=== PATIENT | female | born 1995 | race Caucasian/White ===

== ENCOUNTER 2019-02-11 14:41 | Outpatient (REF) | payer BC, SELFPAY ==
[2019-02-11 15:42] LABS: TSH (W/Ref FT4) 2.58 uIU/mL (0.358-3.74)
== END 2019-02-11 15:01 ==
LOC: NCHCN 14:41
PROVIDERS: Visit Provider Nurse Practitioner Family
DX: F41.0 Panic disorder [episodic paroxysmal anxiety] (principal); F41.8 Other specified anxiety disorders
CPT/HCPCS: 84443

== ENCOUNTER 2019-09-29 03:46 | Emergency (ER) | payer SELFPAY ==
[2019-09-29 03:52] VITALS: BP 117/82; PULSE 95; RESP 16; TEMP 36.7; O2SAT 97
--- NOTE | 2019-09-29 04:03 | ED.GENADUL_ITS ---
Discharge Plan Disposition Patient Disposition: HOME Condition: Good Discharge Details Chief Complaint: Abd Prob Clinical Impression: Abdominal pain Primary Care Provider: Joyce Wright ED Provider: Daryl Cameron Meds and New Rx's Prescriptions: Continued Control Pill RF: 0 Discharge Instructions Instructions: Abdominal Pain (ED) Additional Instructions: Laboratory studies this morning look fine. Take it easy today, drink plenty of fluids and stick with a bland diet. Follow-up with primary care in the next couple of days if not better. Return to ED if worsening pain, vomiting, fever, other concerns or problems. Referrals: Joyce Wright [Primary Care Provider] - Medical Decision Making Patient looks well. Reports pain is a little better on its own. Abdomen is benign. Records do confirm episodes of pancreatitis. Will place IV and start fluids. Will get Zofran and Toradol while we wait for labs to return. Patient is feeling better. Pain is essentially gone. Laboratory studies are unremarkable. White count, hemoglobin, liver function, lipase are all normal. Patient is not . Patient will be discharged home to take it easy today with liquid/bland diet. Follow-up with primary care in the next couple of days if not feeling better. Return to ED if worsening pain, vomiting, fever, other concerns or problems. Medical Records Medical records reviewed: Yes I reviewed the patient's medical records. Lab Data Lab results reviewed: Yes I reviewed the patient's lab results. HPI General Mode of arrival: ambulatory . Date/Time Provider Initiated Documentation: 09/29/19 04:00 . Limitations to Documentation: no limitations . Information obtained by: patient, RN notes reviewed and old records reviewed . HPI Narrative: Patient presents to ED with complaint of upper abdominal pain radiating to the back. One episode of bilious emesis. Patient reports previous episodes of pancreatitis. Reports this feels similar. Previous work-ups have been negative for an etiology of these episodes. Imaging has been negative in the past. Reports not having dinner tonight as she was not hungry but did not really think much of that that as it occurs often. Went to bed without issue but awoke around midnight with pain and has presented this morning due to the pain. She denies fever, chest pain, shortness of breath, urinary symptoms. She is on her menstrual period at this time. Related Data Home Medications Medication Instructions Recorded Confirmed Control Pill 09/29/19 Allergies Allergy/AdvReac Type Severity Reaction Status Date / Time No Known Allergies Allergy Unverified 09/29/19 04:08 General Stated Complaint: Abd Prob CLAUDIA: 3 Review of Systems Narrative: 08/31 Review of Systems completed and is negative except as stated above in HPI (Systems reviewed: Const, Eyes, ENT, Resp, CV, GI, , MSK, Skin, Neuro) [facility] Medical History (Updated 09/29/19 @ 04:14 by Daryl Cameron MD) Pancreatitis (Acute) Social History Smoking/Tobacco Use Status: Never Alcohol Intake: current Alcohol Intake frequency: a few times a month Drug use: Never Substance use type: does not use Do you feel safe at home: Yes Do you feel safe in your relationship?: Yes Exam Narrative Exam Narrative: Vitals: Afebrile. Normal vitals and room air pulse ox. Const: WDWN female in NAD. HEENT: NC/AT. Normal facial exam. Eyes: Normal conjunctiva and sclera. Neck: Supple. Trachea midline. Lungs: Normal respiratory effort. Lungs are clear. Cor: RRR without murmur/gallop. Good radial pulses. GI: Soft. NT/ND. No guarding or rebound. Back: No CVAT. Neuro: A+O x 3. CN grossly in tact. Good strength and no focal deficit. Ext: No C/C/E. No deformity or tenderness. Skin: Warm and dry without rash. Course Vital Signs Vital signs: Vital Signs Temperature 98.1 F 09/29/19 03:52 Pulse 95 H 09/29/19 03:52 Respiratory Rate 16 09/29/19 03:52 Blood Pressure 117/82 09/29/19 03:52 Pulse Oximetry 97 09/29/19 03:52 Temperature 98.1 F 09/29/19 03:52 Temperature Source Tympanic 09/29/19 03:52 Pulse 95 H 09/29/19 03:52 Respiratory Rate 16 09/29/19 03:52 Respiratory Effort Non-Labored 09/29/19 03:56 Blood Pressure 117/82 09/29/19 03:52 Blood Pressure Position Sitting 09/29/19 03:52 Pulse Oximetry 97 09/29/19 03:52 Oxygen Delivery Method Room Air 09/29/19 03:52 Oxygen Flow Rate 0 09/29/19 03:52 Pain Level 4 09/29/19 03:52
[2019-09-29 04:42] LABS: Abs Immature Grans 0.01 k/cumm (0.0-0.09); Absolute Basophil Count 0.05 k/cumm (0.0-0.2); Absolute Eosinophil Count 0.11 k/cumm (0.0-0.7); Absolute Lymphocyte Count 1.94 k/cumm (1.2-3.4); Absolute Monocyte Count 1.19 k/cumm (0.11-0.7); Absolute Neutrophil Count 5.21 k/cumm (1.2-6.7); Basophils % 0.6; Eosinophils % 1.3; HCT 38.7 % (36.0-46.0); HGB 12.7 g/dL (12.0-15.5); Immature Grans % 0.1; Lymphocytes % 22.8; Mean Corp. HGB Concentration 32.8 g/dL (32.0-36.0); Mean Corpuscular Hemoglobin 29.6 pg (27.0-33.0); Mean Corpuscular Volume 90.2 fL (80-95); Mean Platelet Volume 10.5 fL (8.0-11.0); Neutrophils % 61.2; Platelet Count 328 x1000/uL (130-400); RBC 4.29 m/cumm (4.00-5.20); RBC Distribution Width 13.6 % (11.7-14.6); White Blood Cell Count 8.51 k/cumm (4.4-10.8)
[2019-09-29] MEDS: Lactated Ringers 1,000 ML 125 ML IV (04:43)
[2019-09-29] MEDS: Ondansetron 4 MG/2 ML VIAL IVP (04:43)
[2019-09-29] MEDS: Ketorolac 15 MG/ML VIAL IVP (04:43)
[2019-09-29 05:01] LABS: ALT 20 U/L (14-59); AST 12 U/L (15-37); Albumin 3.4 g/dL (3.4-5.0); Alkaline Phosphatase 65 U/L (46-116); Anion Gap 11.1 mmol/L (3-11); BUN 13 mg/dL (7-18); Bilirubin, Total 0.3 mg/dL (0.2-1.0); CO2 23.9 mmol/L (21.0-32.0); CREATININE 0.78 mg/dL (0.55-1.02); Calcium 8.6 mg/dL (8.5-10.1); Chloride 108 mmol/L (98-107); Glucose 98 mg/dL (70-100); Lipase 89 U/L (73-393); Potassium 3.5 mmol/L (3.5-5.1); Sodium 143 mmol/L (136-145); Total Protein 6.9 g/dL (6.4-8.2)
[2019-09-29 05:04] LABS: HCG Qual (Serum) Negative
[2019-09-29 05:33] VITALS: BP 123/72; PULSE 82; RESP 16; TEMP 36.7; O2SAT 99
== END 2019-09-29 05:30 | disposition home or self-care (01) ==
PROVIDERS: Emergency Provider Emergency Medicine; PCP Nurse Practitioner Family
DX: R10.10 Upper abdominal pain, unspecified (principal); R11.10 Vomiting, unspecified
CPT/HCPCS: 36415; 80053; 83690; 96361; 96374; 96375; 99284; 84703; 85025; J1885; J2405

== ENCOUNTER 2019-12-09 16:32 | Outpatient (REF) | payer OTHER, SELFPAY ==
--- NOTE | 2019-12-09 11:45 | PAPFT_PTH ---
PATIENT: Blanka Lee LOC: [facility] U#:[id number] AGE/SX: 24/F ROOM: RE12/09/[address]: Joyce Wright : 1995 BED: DIS: 12/09/2019 SPEC #: [id number] RECD: 12/10/19 13:03 STATUS: TIERNEY RECandace #: [id number] ELAINE: 12/09/19 11:[address]: Joyce Wright DEPT: [facility] Cytology RECD BY: Jaymie Roberts Tissues: 1 - CX/ENDOCX FOR PAP SMEARS Procedures: PAP THIN PREP/UVM Screening Comments: [id number] (CHLAMYDIA/GC)
[2019-12-11 13:40] LABS: Chlamydia Result Negative (Negative); GC Result Negative (Negative)
== END 2019-12-09 16:52 ==
LOC: NCHCN 16:32
PROVIDERS: PCP Nurse Practitioner Family; Visit Provider Nurse Practitioner Family
DX: Z00.00 Encounter for general adult medical examination without abnormal findings (principal); Z12.4 Encounter for screening for malignant neoplasm of cervix; Z01.419 Encounter for gynecological examination (general) (routine) without abnormal findings; Z11.3 Encounter for screening for infections with a predominantly sexual mode of transmission
CPT/HCPCS: 87491; 87591; 88142

== ENCOUNTER 2019-12-13 00:34 | Emergency (ER) | payer OTHER, SELFPAY ==
[2019-12-13 00:36] VITALS: BP 129/75; PULSE 81; RESP 16; TEMP 36.8; O2SAT 100
--- NOTE | 2019-12-13 00:41 | ED.GENADUL_ITS ---
Discharge Plan Disposition Patient Disposition: HOME Condition: Stable Discharge Details Chief Complaint: Abd Prob Clinical Impression: Mass of pancreas Primary Care Provider: Joyce Wright ED Provider: Marquis Jensen Home Meds and New Rx's Prescriptions: New oxycodone 5 mg tablet 5 mg PO Q6H PRN (Reason: pain) Qty: 10 RF: 0 ondansetron 4 mg tablet,disintegrating 4 mg PO Q8H PRN (Reason: nausea and vomiting) Qty: 30 RF: 0 Continued Control Pill RF: 0 Discharge Instructions Additional Instructions: Your cat scan showed a mass near the pancreas which could be a tumor or a pseudocyst follow up with your primary care provider and I have also placed you on our foll ow up list to see a congressional representative and general surgeron if you have severe worsening pain, persistent vomit or high fevers return to the emergency department if you have pain take 1000mg tylenol and 600mg ibuprofen every 6 hours for pain as needed if you need additional pain medication take 1 oxycodone and do not drink alcohol or drive if you take this medicine Medical Decision Making 24 yo female who states she has 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 Denies fevers, chills, chest pain, sob, vaginal bleeding or d/c. She appears in pain on exam and has pain in luq, epigastric and ruq on exam, no distention and no lower abdominal pain. Given degree of pain and her history will obtain ct to eval for surgical pathology such as cholecystitis or pneumoperitoneum and also lab work to evaluate for acute pancreatitis. labs benign, mild elevation of ast barely outside normal range. She is currently feeling better. CT is showing 3.8cm mass near pancreatic head with differential per radiology of solid pseudo papillary tumor, pseudocyst or duodenal diverticulitis. She has no fevers or infectious symptoms and no leukocytosis so doubt infectious etiology. I recommended admission and possible transfer but she is declining and wants to be discharged. She understands risks of leaving including worsening mass and possible outcomes such as becoming disabled and possible and is willing to accept these risks and has capacity to make her own decisions. I will prescribe her short course of pain meds and nausea medicine and have her f/u with gastroenterology and also general surgery to see if there is any procedure that they can do for the patient. She understands if she changes her mind she can return at any time Differential Diagnosis Differential Diagnosis: cholecystitis, pancreatitis, gerd [facility] General Mode of arrival: ambulatory . Date/Time Provider Initiated Documentation: 12/13/19 00:35 . Limitations to Documentation: no limitations . Information obtained by: patient . History of Present Illness 24 year old F presents to the emergency department with the chief complaint of abdominal pain, described as moderate, Quality is described as sharp, Patient started experiencing this week(s) (2) and it has been intermittent. No relieving factors improve symptom(s), No exacerbating factors reported . Patient notes nausea/vomiting. Patient did receive the following treatments prior to arrival, none Related Data Home Medications Medication Instructions Recorded Confirmed Control Pill 09/29/19 ondansetron 4 mg PO Q8H PRN #30 tab 12/13/19 oxycodone 5 mg PO Q6H PRN #10 tab 12/13/19 Previous Rx's Medication Instructions Recorded ondansetron 4 mg PO Q8H PRN #30 tab 12/13/19 oxycodone 5 mg PO Q6H PRN #10 tab 12/13/19 Allergies Allergy/AdvReac Type Severity Reaction Status Date / Time No Known Allergies Allergy Unverified 09/29/19 04:08 General Stated Complaint: Abd Prob CLAUDIA: 3 Review of Systems All systems reviewed & are unremarkable except as noted in HPI and below Constitutional Constitutional: Denies chills, Denies fever(s) and Denies weakness Cardiovascular Cardiovascular: Denies chest pain and Denies dyspnea Respiratory Respiratory: Denies cough and Denies dyspnea Genitourinary Genitourinary: Denies dysuria Musculoskeletal Musculoskeletal: Denies joint swelling Integumentary/Breasts Skin/Breast: Denies rash Neurologic Neurologic: Denies weakness Psychiatric Psychiatric: Denies depression Endocrine Endocrine: Denies cold intolerance [facility] Medical History (Updated 09/29/19 @ 04:14 by Daryl Cameron MD) Pancreatitis (Acute) Social History Smoking/Tobacco Use Status: Never Alcohol Intake: current Alcohol Intake frequency: a few times a month Drug use: Never Substance use type: does not use Do you feel safe at home: Yes Do you feel safe in your relationship?: Yes Exam Const General: no acute distress Orientation: alert HENMT Head: normal to inspection Ears: external ears normal General nose exam: external nose normal Mouth: moist mucous membranes Eyes General: appearance normal, both eyes and all related structures Neck Neck: normal visual inspection Resp Effort & Inspection: normal respiratory effort and able to speak in complete sentences Cardio Rate: regular rate GI Inspection: normal to inspection Palpation: soft Skin General skin exam: no rashes or lesions noted Neuro General: alert and oriented x3 Extrem General: normal to inspection Psych Mental Status: mental status grossly normal Course Vital Signs Vital signs: Vital Signs Temperature 36.8 C 12/13/19 00:36 Pulse 81 12/13/19 00:36 Respiratory Rate 16 12/13/19 00:36 Blood Pressure 129/75 12/13/19 00:36 Pulse Oximetry 100 12/13/19 00:36 Temperature 36.8 C 12/13/19 00:36 Temperature Source Skin 12/13/19 00:36 Pulse 81 12/13/19 00:36 Respiratory Rate 16 12/13/19 00:36 Blood Pressure 129/75 12/13/19 00:36 Blood Pressure Position Sitting 12/13/19 00:36 Pulse Oximetry 100 12/13/19 00:36 Oxygen Delivery Method Room Air 12/13/19 00:36 Oxygen Flow Rate 0 12/13/19 00:36
[2019-12-13] MEDS: Ondansetron 4 MG/2 ML VIAL IVP (00:56)
[2019-12-13] MEDS: Ketorolac 15 MG/ML VIAL IVP (00:57)
[2019-12-13] MEDS: Normal Saline Flush 10 ML SYR IVP (00:57)
[2019-12-13] MEDS: Normal Saline 1,000 ML 1000 ML IV (00:57)
--- NOTE | 2019-12-13 01:00 | DI.CT_ITS ---
EXAM: CT ABDOMEN PELVIS W CLINICAL HISTORY: upper abdominal pain TECHNIQUE: Post IV and without oral contrast. COMPARISON: ABD PELVIS WITH CONTRAST from 02/11/2010 MRI ABDOMEN WO CONTRAST from 03/09/2010 FINDINGS: There is a circumscribed mass measuring 3.8 x 2.4 x 2.2 cm, which is located at the head of the pancr eas anteriorly. It appears to communicate with the pancreatic duct. There is debris and air as well as fluid within the apparent diverticulum. The patient has a history of pancreas divisum. There is no dilatation of the common bile duct. The gallbladder is not abnormally distended. No gallbladder wall thickening is seen. There is no significant inflammation involving the pancreas. No free air, free fluid or bowel dilatation is seen. The lung bases are clear. The heart size is normal. The s pleen, adrenals, kidneys and urinary bladder as well as uterus and ovaries are unremarkable. The елена endix appears normal. There is a moderate quantity of stool. No bowel wall thickening or dilatation is seen. IMPRESSION: Question of a diverticulum versus mass located in the head of the pancreas. There is question of com munication with the pancreatic duct versus duodenal diverticulum.
[2019-12-13] MEDS: Omnipaque 350 MG/ML 100 ML BTL IJ (01:14)
[2019-12-13 01:36] LABS: Bilirubin Negative (Negative); Blood Negative (Negative); Clarity Clear (Clear); Glucose Negative (Negative); Ketones >=160 mg/dL (Negative); Leukocyte Esterase Negative (Negative); Nitrite Negative (Negative); Specific Gravity 1.025 (1.005-1.025); Urobilinogen 0.2 EU/dL (Up TO 0.2)
[2019-12-13 01:37] LABS: Abs Immature Grans 0.01 k/cumm (0.0-0.09); Absolute Basophil Count 0.07 k/cumm (0.0-0.2); Absolute Eosinophil Count 0.14 k/cumm (0.0-0.7); Absolute Lymphocyte Count 3.39 k/cumm (1.2-3.4); Absolute Monocyte Count 1.09 k/cumm (0.11-0.7); Absolute Neutrophil Count 4.71 k/cumm (1.2-6.7); Basophils % 0.7; Eosinophils % 1.5; HCT 39.1 % (36.0-46.0); Immature Grans % 0.1 %; Mean Corp. HGB Concentration 33.2 g/dL (32.0-36.0); Mean Corpuscular Hemoglobin 30.2 pg (27.0-33.0); Mean Corpuscular Volume 90.9 fL (80-95); Monocytes % 11.6; Neutrophils % 50.1; Platelet Count 331 x1000/uL (130-400); RBC Distribution Width 13.8 % (11.7-14.6); White Blood Cell Count 9.41 k/cumm (4.4-10.8)
[2019-12-13] MEDS: fentaNYL 100 MCG/2 ML VIAL 50 MCG IVP (01:37)
[2019-12-13 01:38] VITALS: BP 108/55; PULSE 73; RESP 16; O2SAT 100
[2019-12-13 01:45] LABS: ALT 38 U/L (14-59); AST 41 U/L (15-37); Albumin 3.5 g/dL (3.4-5.0); Alkaline Phosphatase 67 U/L (46-116); Anion Gap 10.1 mmol/L (3-11); BUN 11 mg/dL (7-18); Bilirubin, Total 0.6 mg/dL (0.2-1.0); CO2 26.9 mmol/L (21.0-32.0); CREATININE 0.59 mg/dL (0.55-1.02); Calcium 8.8 mg/dL (8.5-10.1); Chloride 103 mmol/L (98-107); Glucose 96 mg/dL (74-106); Lipase 81 U/L (73-393); Magnesium 1.8 mg/dL (1.8-2.4); Potassium 3.4 mmol/L (3.5-5.1); Sodium 140 mmol/L (136-145); Total Protein 7.2 g/dL (6.4-8.2)
[2019-12-13 02:05] LABS: ETHANOL BLOOD < 3.0 mg/dL (<3)
--- NOTE | 2019-12-13 02:15 | DI.VRAD_ITS ---
Addendum created by Martin Correia MD on 12/13/2019 2:22:18 AM EST Findings were discussed with Marquis Jensen at 12/13/2019 2:21 AM EST. Initial report created on 12/13/2019 2:15:28 AM EST PROCEDURE INFORMATION: Exam: CT Abdomen And Pelvis With Contrast Exam date and time: 12/13/2019 12:41 AM Age: 24 years old Clinical indication: Localized; Patient HX: Upper abdominal pain TECHNIQUE: Imaging protocol: Computed tomography of the abdomen and pelvis with intravenous contrast. COMPARISON: No relevant prior studies available. FINDINGS: Lungs: The visualized lung bases appear clear. Liver: The liver appears mildly enlarged measuring 19.9 cm at the mid axillary line and shows normal homogeneous enhancement. Gallbladder and bile ducts: No gallstones identified. The common bile duct measures 4 mm in diameter, within normal limits. There is mild intrahepatic biliary ductal dilatation. Pancreas: Arising from the area of the 4th portion of the duodenum and head of the pancreas, there is a heterogeneous attenuation mass extending exophytic fashion anteriorly to reach the undersurface of the linea alba and abutting the medial wall of the gallbladder. The mass measures 3.8 x 2.4 x 2.2 cm. It contains solid, liquid and gaseous components. Spleen: The spleen is 7.9 cm in transverse diameter. Adrenals: Normal. No mass. Kidneys and ureters: Normal. No hydronephrosis. Stomach and bowel: Mild fecal stasis is noted throughout the colon. Appendix: The appendix is not identified. Intraperitoneal space: Unremarkable. No free air. No significant fluid collection. Vasculature: Unremarkable. No abdominal aortic aneurysm. Lymph nodes: Unremarkable. No enlarged lymph nodes. Bladder: The bladder is mostly decompressed and shows a normal contour. Reproductive: Unremarkable as visualized. Bones/joints: Unremarkable. No acute fracture. Soft tissues: Unremarkable. IMPRESSION: 1. A 3.8 cm exophytic mass extending anteriorly from the area of the 4th portion of the duodenum and pancreatic head. The exact origin of the mass is difficult to determine. Diagnostic considerations include duodenal diverticulitis. Other less common lesions include solid pseudo papillary tumor of the pancreas, a pancreatic pseudocyst, mesenchymal tumor. 2. Mild hepatomegaly without splenomegaly. 3. Fecal stasis throughout the colon, mild. Dictated and Authenticated by: Martin Correia MD. Ordering:CORTEZ Cho MD
[2019-12-13 02:39] VITALS: BP 113/78; PULSE 86; RESP 16; O2SAT 100
[2019-12-13] MEDS: Ondansetron O.D.T. 4 MG TABEF, 3 TABS/BTL PO (02:46)
--- NOTE | 2019-12-13 11:21 | NUR.NOTE ---
Nursing Note: Referral faxed to [facility] for follow up. Also, copy given to Care Management to establish care with a boat buffer plastic. Deja Jones.
== END 2019-12-13 02:50 | disposition home or self-care (01) ==
PROVIDERS: Emergency Provider Emergency Medicine; PCP Nurse Practitioner Family
DX: K86.89 Other specified diseases of pancreas (principal); K85.90 Acute pancreatitis without necrosis or infection, unspecified
CPT/HCPCS: 80053; 81025; 83690; 96361; 96374; 96375; 99285; 74177; 80320; 81003; 82248; 83735; 85025; J1885; J2405; J3010; J3490

== ENCOUNTER 2019-12-13 14:30 | Inpatient (IN) | payer OTHER, SELFPAY ==
[2019-12-13 14:31] VITALS: BP 127/72; PULSE 99; RESP 20; TEMP 36.7; O2SAT 98
--- NOTE | 2019-12-13 15:08 | W.ED.GENAD ---
Discharge Plan Disposition Patient Disposition: [facility] INPATIENT Condition: Stable Discharge Details Chief Complaint: Abd Prob Clinical Impression: Pancreatitis, Pancreatic mass Admit Date/Time: 12/13/19 15:55 Admit Provider: Feliz Yoo Attending Provider: Feliz Yoo Primary Care Provider: Joyce Wright ED Provider: Yolanda Donato Discharge Data Discharge Date/Time-TO BE ENTERED AT DEPARTURE: 12/13/19 17:30 Medical Decision Making <JANIE Lynn - Last Filed: 12/16/19 10:28> 24-year-old patient returns to the emergency room requesting admission to the hospital after refusing admission last evening. Patient was seen for abdominal pain in the upper abdomen. History of chronic pancreatitis, several episodes of pancreatitis historically. Patient felt if she could control her pain then it would resolve as it typically does. Patient had a CT yesterday which revealed a mass in near the head of her pancreas. Patient took oxycodone 5 mg 3 times today and reports no significant improvement, pain unable to tolerate. Requesting admission to the hospital. Reports persistent nausea. Difficulty hydrating for the last few days, has not been able to tolerate fluids by mouth. Patient denies active vomiting. 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 Patient denies fevers. Minimal urination which she attributes to feeling dehydrated. FINDINGS: Lungs: The visualized lung bases appear clear. Liver: The liver appears mildly enlarged measuring 19.9 cm at the mid axillary line and shows normal homogeneous enhancement. Gallbladder and bile ducts: No gallstones identified. The common bile duct measures 4 mm in diameter, within normal limits. There is mild intrahepatic biliary ductal dilatation. Pancreas: Arising from the area of the 4th portion of the duodenum and head of the pancreas, there is a heterogeneous attenuation mass extending exophytic fashion anteriorly to reach the undersurface of the linea alba and abutting the medial wall of the gallbladder. The mass measures 3.8 x 2.4 x 2.2 cm. It contains solid, liquid and gaseous components. Spleen: The spleen is 7.9 cm in transverse diameter. Adrenals: Normal. No mass. Kidneys and ureters: Normal. No hydronephrosis. Stomach and bowel: Mild fecal stasis is noted throughout the colon. Appendix: The appendix is not identified. Intraperitoneal space: Unremarkable. No free air. No significant fluid collection. Vasculature: Unremarkable. No abdominal aortic aneurysm. Lymph nodes: Unremarkable. No enlarged lymph nodes. Bladder: The bladder is mostly decompressed and shows a normal contour. Reproductive: Unremarkable as visualized. Bones/joints: Unremarkable. No acute fracture. Soft tissues: Unremarkable. IMPRESSION: 1. A 3.8 cm exophytic mass extending anteriorly from the area of the 4th portion of the duodenum and pancreatic head. The exact origin of the mass is difficult to determine. Diagnostic considerations include duodenal diverticulitis. Other less common lesions include solid pseudo papillary tumor of the pancreas, a pancreatic pseudocyst, mesenchymal tumor. 2. Mild hepatomegaly without splenomegaly. 3. Fecal stasis throughout the colon, mild. Dictated and Authenticated by: Martin Correia MD. Ordering:CORTEZ Cho MD Patient reports improvement of pain with medications provided. Patient's lipase was notably normal last evening and is increased significantly today consistent with acute pancreatitis in addition to the mass noted. Patient provided IV fluid and pain management. Spoke with the hospitalist regarding admission who does accept patient's admission to [facility] at this time. Patient agrees with plan of care. <JANIE Linton - Last Filed: 12/13/19 22:35> 24-year-old female whom I received in signout from Joy SHAH. See her note for complete HPI PE details. In brief, patient is a 24-year-old female with frequent bouts of pancreatitis. She was seen here in the emergency department yesterday where she had a CT scan concerning for acute pancreatitis along with a potential mass versus pseudocyst of the head of the pancreas. She was found to have a normal lipase at that time. She did not want to be admitted at that time. She presents today with worsening abdominal pain. Lipase up to 4000. Hospitalist has seen and evaluated the patient in the emergency department and will admit. Pain controlled with IV Dilaudid. IV fluids running at this time. HPI <JANIE Lynn - Last Filed: 12/16/19 10:28> General Date/Time Provider Initiated Documentation: 12/13/19 14:45. HPI Narrative: This is a patient evaluated in the emergency room last evening who was diagnosed with a pancreatic mass versus cyst. 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 Patient reports several episodes of pancreatitis. She presented with upper abdominal pain which is typical of her presentation. Patient ultimately was treated with IV fluids and pain medication. Patient did have a CT revealing a pancreatic mass versus cyst. This was discussed with the patient during her ER evaluation. Patient's preference was to follow-up as an outpatient. Patient was provided pain medication. Patient reports overnight she did take 3 tablets of 5 mg oxycodone over the course of the evening. Patient reports no significant relief in pain. Patient reports that she did initially declined admission to the hospital but at this time pain is intolerable and she is requesting admission. Patient denies change in bowels or urination. Patient does report nausea as well as vomiting. Patient denies use of alcohol. No other concerns or complaints. Denies measured fever. Related Data Home Medications Medication Instructions Recorded Confirmed Control Pill 1 tab PO DAILY 09/29/19 12/13/19 acetaminophen 650 mg PO Q6H PRN PRN 12/13/19 12/13/19 ibuprofen [IBU-200] 400 mg PO Q6H PRN 12/13/19 12/13/19 ondansetron 4 mg PO Q8H PRN #30 tab 12/13/19 12/13/19 oxycodone 5 mg PO Q6H PRN #10 tab 12/13/19 12/13/19 Previous Rx's Medication Instructions Recorded ondansetron 4 mg PO Q8H PRN #30 tab 12/13/19 oxycodone 5 mg PO Q6H PRN #10 tab 12/13/19 Allergies Allergy/AdvReac Type Severity Reaction Status Date / Time No Known Allergies Allergy Unverified 12/13/19 14:35 General Stated Complaint: Abd Prob CLAUDIA: 3 Review of Systems <JANIE Lynn - Last Filed: 12/16/19 10:28> Constitutional Constitutional: Denies chills, Denies fever(s) and Reports malaise ENT Ears, Nose, Mouth, and Throat: Denies nasal congestion and Denies sore throat Cardiovascular Cardiovascular: Denies chest pain, Denies syncope and Denies dyspnea Respiratory Respiratory: Denies cough and Denies dyspnea Gastrointestinal Gastrointestinal: Reports abdominal pain, Denies diarrhea, Reports nausea and Reports vomiting Genitourinary Genitourinary: Denies hematuria, Denies dysuria, Denies flank pain and Denies urinary urgency Neurologic Neurologic: Denies syncope PFSH <JANIE Lynn - Last Filed: 12/16/19 10:28> Medical History Pancreatic divisum (Acute) Pancreatitis (Chronic) Family History Mother Pancreatitis Social History Smoking/Tobacco Use Status: Never Alcohol Intake: current Alcohol Intake frequency: a few times a month Drug use: Never Substance use type: does not use Do you feel safe at home: Yes Do you feel safe in your relationship?: Yes History History 0 Para Hx # Term Pregnancies Multiple births Hx # Pregnancies Ectopic pregnancies AB induced Hx Number of Living Children AB spontaneous Exam <JANIE Lynn - Last Filed: 12/16/19 10:28> Narrative Exam Narrative: CONST: Uncomfortable appearing. Alert and oriented. HENMT: Head nomocephalic, normal to inspection. Atraumatic. Hearing grossly normal. TMs appear normal bilaterally. No pharyngeal erythema. Eyes: No scleral icterus. Conjunctiva normal NECK: Normal visual inspection. FROM. Trachea midline. No Midline tenderness. CHEST: Normal insepection of the chest. RESP: Normal respiratory effort. Speaking full sentences. No cough. No audible wheezing. No retractions. CARDIO: No JVD. No murmur. Regular rate and rhythm. GI: Bowel sounds are present in all 4 quadrants. Abdomen is soft but moderately tender in the upper quadrants. No significant lower abdominal pain with palpation. No peritoneal signs. No rebound. Back: No CVA tenderness bilaterally SKIN: Normal. Dry. No rashes. No jaundice Course <JANIE Lynn - Last Filed: 12/16/19 10:28> Vital Signs Vital signs: Vital Signs Temperature 36.7 C 12/13/19 14:31 Pulse 99 H 12/13/19 14:31 Respiratory Rate 20 12/13/19 14:31 Blood Pressure 127/72 12/13/19 14:31 Pulse Oximetry 98 12/13/19 14:31 Temperature 36.7 C 12/13/19 14:31 Temperature Source Temporal Artery Scan 12/13/19 14:31 Pulse 99 H 12/13/19 14:31 Respiratory Rate 20 12/13/19 14:31 Blood Pressure 127/72 12/13/19 14:31 Blood Pressure Position Supine 12/13/19 14:31 Pulse Oximetry 98 12/13/19 14:31 Oxygen Delivery Method Room Air 12/13/19 14:31 Oxygen Flow Rate 0 12/13/19 14:31 Pain Level 8 12/13/19 14:31
[2019-12-13] MEDS: HYDROmorphone 2 MG/ML VIAL 1 MG IVP (15:14)
[2019-12-13] MEDS: Ondansetron 4 MG/2 ML VIAL IVP (15:15)
[2019-12-13] MEDS: Normal Saline 1,000 ML 1000 ML IV ×3 (15:23→18:24)
[2019-12-13 15:24] LABS: Abs Immature Grans 0.02 k/cumm (0.0-0.09); Absolute Lymphocyte Count 1.72 k/cumm (1.2-3.4); Absolute Monocyte Count 1.52 k/cumm (0.11-0.7); Basophils % 0.3; HGB 12.9 g/dL (12.0-15.5); Immature Grans % 0.2 %; Mean Corp. HGB Concentration 33.1 g/dL (32.0-36.0); Mean Corpuscular Hemoglobin 30.2 pg (27.0-33.0); Mean Corpuscular Volume 91.3 fL (80-95); Mean Platelet Volume 10.7 fL (8.0-11.0); Monocytes % 13.2; Neutrophils % 70.3; Platelet Count 304 x1000/uL (130-400); RBC 4.27 m/cumm (4.00-5.20); RBC Distribution Width 13.8 % (11.7-14.6); White Blood Cell Count 11.48 k/cumm (4.4-10.8)
[2019-12-13 15:25] LABS: Absolute Basophil Count 0.03 k/cumm (0.0-0.2); Absolute Eosinophil Count 0.11 k/cumm (0.0-0.7); Absolute Neutrophil Count 8.07 k/cumm (1.2-6.7)
[2019-12-13 15:37] LABS: ALT 51 U/L (14-59); AST 40 U/L (15-37); Albumin 3.2 g/dL (3.4-5.0); Alkaline Phosphatase 65 U/L (46-116); Anion Gap 10.9 mmol/L (3-11); BUN 5 mg/dL (7-18); Bilirubin, Total 0.9 mg/dL (0.2-1.0); CO2 26.1 mmol/L (21.0-32.0); Chloride 103 mmol/L (98-107); Glucose 95 mg/dL (74-106); Potassium 3.6 mmol/L (3.5-5.1); Sodium 140 mmol/L (136-145); Total Protein 6.5 g/dL (6.4-8.2)
[2019-12-13 15:46] LABS: Lipase 3940 U/L (73-393)
[2019-12-13 15:47] LABS: Diff Comment Agrees w/ Instrument; RBC Morphology Normal
[2019-12-13 16:04] LABS: Bilirubin Small (Negative); Blood Negative (Negative); Clarity Clear (Clear); Glucose Negative (Negative); Ketones 40 mg/dL (Negative); Leukocyte Esterase Negative (Negative); Nitrite Negative (Negative); Specific Gravity 1.025 (1.005-1.025)
[2019-12-13] MEDS: HYDROmorphone 2 MG/ML VIAL 0.25 MG IVP (16:04)
--- NOTE | 2019-12-13 16:10 | W.PM.HP.N ---
Date of service: 12/13/19 Time of Service: 16:10 Assessment and Plan Assessment and plan (1) Pancreatitis: Status: Chronic Assessment and plan: Keep NPO; hydrate w/ iv fluids at 3 to 5 mL/kg/hr over next 12hr; parenteral narcotics and anti-emetics; check lipid profile and then follow up w/ repeat imaging of her pancreas as noted below Qualifiers: Acute pancreatitis complication: unspecified Chronicity: acute Pancreatitis type: idiopathic Qualified Code(s): K85.00 - Idiopathic acute pancreatitis without necrosis or infection (2) Pancreatic divisum: Status: Acute Assessment and plan: By history she has had a congenital pancreatic divisum. Last MRI scan done here at [facility] was from 03/09/2010. In light of her abnormal CT scan of her abdomen suggestive of a mass, I think that she needs a follow up MRI/MRCP to evaluate whether or not this alleged 3.8 cm exophytic mass that extends from the anterior portion of the 4th portion of her duodenum and pancreatic head is truly a mass or a duodenal diverticulum or edema from her pancreatic divisum or a pancreatic pseudocyst versus pancreatic tumor. 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 She has a past medical history of congenital pancreatic divisum which was never surgically corrected. She states over the last 1 1/2 to 2 months she has had 5 bouts of abdominal pain consistent with her history of pancreatitis. She is not had to be hospitalized since 2014 because she usually controls it with Tylenol and ibuprofen and going on a clear liquid diet until the pain resolves. She presented to the emergency department yesterday because the pain was intense and she was having trouble controlling it. At that time they did a work-up including routine labs and a CT scan of her abdomen and pelvis. CBC was unremarkable. Specifically she had no leukocytosis. Chemistry panel showed a low potassium of 3.4 and a borderline elevated AST of 41 but otherwise normal LFTs and surprisingly a normal lipase of 81. CT scan of her abdomen and pelvis demonstrated a 3.8 cm exophytic mass extending anteriorly from the area of the fourth portion of her duodenum and pancreatic head. Radiologist cannot determine the exact origin of the mass and diagnostic considerations included divert reticulitis of the duodenum or solid pseudopapillary tumor of the pancreas or pancreatic pseudocyst. She was advised to be admitted and treated with parenteral analgesics and IV fluids and to obtain consultation with gastroenterology. She declined admission and opted for outpatient treatment and outpatient follow-up. She was discharged home on a short course of oxycodone and Zofran. She re-presented to the emergency department today because the pain was uncontrollable and she has been nauseated and unable to keep down her oral pain medications. Repeat imaging was not done today but repeat labs include a CBC which now shows a minimal leukocytosis of 11,480. No anemia. Chemistry panel shows a normal BUN and creatinine. Calcium is down to 8.0. AST remains minimally elevated at 40 otherwise the rest of her LFTs are normal but her lipase is now elevated at 3900. Patient is now admitted for treatment of acute pancreatitis and evaluation of this exophytic pancreatic/duodenal mass. She is being admitted for IV fluid hydration and antiemetics and parenteral narcotic analgesics. We will get an MRI/MRCP of her abdomen in the morning as well as a ultrasound of her abdomen. I will be contacting [facility] gastroenterology department to discuss further management. Review of Systems Gastrointestinal Gastrointestinal: Reports as per [facility] Medical History (Updated 12/13/19 @ 18:25 by Feliz Yoo) Pancreatic divisum (Acute) Pancreatitis (Chronic) Family History (Updated 12/13/19 @ 18:18 by Feliz Yoo) Mother Pancreatitis Social History Smoking/Tobacco Use Status: Never Alcohol Intake: current Alcohol Intake frequency: a few times a month Drug use: Never Substance use type: does not use Do you feel safe at home: Yes Do you feel safe in your relationship?: Yes Female Reproductive History Menstrual control method: pills History History 0 Para Hx # Term Pregnancies Multiple births Hx # Pregnancies Ectopic pregnancies AB induced Hx Number of Living Children AB spontaneous Meds Home Medications and Allergies Home Medications Medication Instructions Recorded Confirmed Type Control Pill 1 tab PO DAILY 09/29/19 12/13/19 History acetaminophen 650 mg PO Q6H PRN PRN 12/13/19 12/13/19 History ibuprofen [IBU-200] 400 mg PO Q6H PRN 12/13/19 12/13/19 History ondansetron 4 mg PO Q8H PRN #30 tab 12/13/19 12/13/19 Rx oxycodone 5 mg PO Q6H PRN #10 tab 12/13/19 12/13/19 Rx Allergies Allergy/AdvReac Type Severity Reaction Status Date / Time No Known Allergies Allergy Unverified 12/13/19 14:35 Exam Narrative Exam Narrative: Young female in mild to moderate distress secondary to abdominal pain HEENT unremarkable neck: supple, nontender, normal carotid pulses, no JVD lungs: clear heart: regular but tachycardia; no murmur abdomen: hypoactive bowel sounds, firm and tender particularly over epigastrium and LUQ but also over RUQ; not as tender over RLQ and LLQ extremities: no edema or cyanosis; no calf tenderness; normal ROM and strength Neuro: non-focal; no abnormalities Results Labs Result diagrams: 12/13/19 14:45 12/13/19 14:45 Labs: Laboratory Results - last 24 hr 12/13/19 12/13/19 12/13/19 14:45 14:45 15:55 WBC 11.48 H RBC 4.27 Hgb 12.9 Hct 39.0 MCV 91.3 MCH 30.2 MCHC 33.1 RDW 13.8 Plt Count 304 MPV 10.7 Immature Gran % 0.2 Neutrophils % 70.3 Lymphocytes % 15.0 Monocytes % 13.2 Eosinophils % 1.0 Basophils % 0.3 Absolute Neutrophils 8.07 H Absolute Lymphocytes 1.72 Absolute Monocytes 1.52 H Absolute Eosinophils 0.11 Absolute Basophils 0.03 Differential Comment Agrees w/ instrument RBC Morphology Normal Sodium 140 Potassium 3.6 Chloride 103 Carbon Dioxide 26.1 Anion Gap 10.9 BUN 5 L Creatinine 0.70 Estimated GFR/1.73 m2 >= 60.00 Glucose 95 Calcium 8.0 L Total Bilirubin 0.9 AST 40 H ALT 51 Alkaline Phosphatase 65 Total Protein 6.5 Albumin 3.2 L Lipase 3940 H Urine Color Yellow Urine Clarity Clear Urine pH 7.0 Ur Specific [place] 1.025 Urine Protein Negative Urine Ketones 40 H Urine Blood Negative Urine Nitrite Negative Urine Bilirubin Small H Urine Urobilinogen 2.0 H Ur Leukocyte Esterase Negative Urine Glucose Negative Last Vital Signs Temp 36.7 C 12/13/19 14:31 Pulse 99 H 12/13/19 14:31 Resp 20 12/13/19 14:31 BP 127/72 12/13/19 14:31 Pulse Ox 98 12/13/19 14:31
[2019-12-13 16:44] LABS: Calculated LDL 72 mg/dL; Cholesterol 173 mg/dL (<200); HDL Cholesterol 93 mg/dL (40-60); Triglyceride 43 mg/dL (<150)
[2019-12-13] MEDS: HYDROmorphone 2 MG/ML VIAL IVP ×3 (17:07→23:14)
[2019-12-13 17:30] VITALS: BP 124/74; PULSE 98; RESP 18; TEMP 37.2; O2SAT 100
[2019-12-13 17:47] VITALS: BP 117/76; PULSE 107; RESP 18; TEMP 36.5; O2SAT 99
[2019-12-13] MEDS: Normal Saline Flush 10 ML SYR IVP ×2 (18:28→20:41)
[2019-12-13] MEDS: HYDROmorphone 2 MG/ML VIAL (18:34)
--- NOTE | 2019-12-13 20:00 | NUR.NOTE ---
Nursing Note: Pt was admitted in Rm [facility], with severe abdominal pain that radiates to spinal area. Seen by MD and NS bolus infusing well. Medicated with Dilaudid 2 mg IVP as stat order. Complained of itchiness on the body. didactic instructor notified to ask for medication. Family at bedside for support. Nrsg will continue to monitor.
[2019-12-13] MEDS: diphenhydrAMINE 50 MG/ML VIAL 25 MG IVP (20:36)
[2019-12-13] MEDS: Docusate Sodium 100 MG CAP PO (20:38)
[2019-12-13] MEDS: POTASSIUM CHLORIDE/0.9% NACL 1,000 ML 300 MEQ IV (20:47)
[2019-12-13 22:22] LABS: Anion Gap 10.1 mmol/L (3-11); BUN 2 mg/dL (7-18); CO2 22.9 mmol/L (21.0-32.0); CREATININE 0.61 mg/dL (0.55-1.02); Calcium 7.2 mg/dL (8.5-10.1); Chloride 102 mmol/L (98-107); Glucose 89 mg/dL (74-106); Potassium 3.9 mmol/L (3.5-5.1); Sodium 135 mmol/L (136-145)
[2019-12-13 23:15] VITALS: BP 110/63; PULSE 123; RESP 18; TEMP 37.6; O2SAT 100
[2019-12-14] MEDS: POTASSIUM CHLORIDE/0.9% NACL 1,000 ML 300 MEQ IV ×4 (00:22→15:29)
[2019-12-14] MEDS: HYDROmorphone 2 MG/ML VIAL IVP ×9 (02:15→22:19)
[2019-12-14] MEDS: diphenhydrAMINE 25 MG CAP PO ×3 (03:27→22:38)
[2019-12-14] MEDS: Docusate Sodium 100 MG CAP PO ×2 (03:45→13:59)
[2019-12-14] MEDS: Normal Saline Flush 10 ML SYR IVP ×8 (04:40→22:20)
[2019-12-14] MEDS: HYDROmorphone 2 MG/ML VIAL (04:40)
[2019-12-14 07:00] LABS: Abs Immature Grans 0.06 k/cumm (0.0-0.09); Absolute Eosinophil Count 0.03 k/cumm (0.0-0.7); Absolute Lymphocyte Count 1.37 k/cumm (1.2-3.4); Absolute Neutrophil Count 11.79 k/cumm (1.2-6.7); Basophils % 0.1; Eosinophils % 0.2; HCT 37.9 % (36.0-46.0); HGB 12.2 g/dL (12.0-15.5); Immature Grans % 0.4 %; Lymphocytes % 9.2; Mean Corp. HGB Concentration 32.2 g/dL (32.0-36.0); Mean Corpuscular Hemoglobin 29.7 pg (27.0-33.0); Mean Corpuscular Volume 92.2 fL (80-95); Mean Platelet Volume 10.7 fL (8.0-11.0); Monocytes % 10.8; Neutrophils % 79.3; Platelet Count 264 x1000/uL (130-400); RBC 4.11 m/cumm (4.00-5.20); RBC Distribution Width 13.7 % (11.7-14.6); White Blood Cell Count 14.87 k/cumm (4.4-10.8)
[2019-12-14 07:01] LABS: Absolute Basophil Count 0.01 k/cumm (0.0-0.2); Absolute Monocyte Count 1.61 k/cumm (0.11-0.7)
[2019-12-14 07:15] VITALS: BP 111/74; PULSE 127; RESP 16; TEMP 37.6; O2SAT 93
[2019-12-14 07:25] LABS: ALT 32 U/L (14-59); AST 20 U/L (15-37); Albumin 2.7 g/dL (3.4-5.0); Alkaline Phosphatase 57 U/L (46-116); Anion Gap 12.4 mmol/L (3-11); BUN 1 mg/dL (7-18); Bilirubin, Total 1.3 mg/dL (0.2-1.0); CO2 19.6 mmol/L (21.0-32.0); CREATININE 0.71 mg/dL (0.55-1.02); Calcium 7.2 mg/dL (8.5-10.1); Chloride 104 mmol/L (98-107); Glucose 79 mg/dL (74-106); Magnesium 1.2 mg/dL (1.8-2.4); Potassium 4.2 mmol/L (3.5-5.1); Sodium 136 mmol/L (136-145); Total Protein 5.9 g/dL (6.4-8.2)
[2019-12-14 07:39] LABS: Lipase 1458 U/L (73-393)
[2019-12-14] MEDS: MAGNESIUM SULFATE 4 GM/100 ML BAG IVPB (08:27)
--- NOTE | 2019-12-14 09:11 | PDOC.CMIN ---
- If Service Date Differs Date of service: 12/14/19 Time of Service: 09:11 Care Management Initial Assess REASON FOR HOSPITALIZATION:: Pancreatitis PAST MEDICAL HISTORY/PAST SURGICAL HISTORY:: Medical History (Updated 12/13/19 @ 18:25 by Feliz Yoo). Pancreatic divisum (Acute). Pancreatitis (Chronic). Family History (Updated 12/13/19 @ 18:18 by Feliz Yoo). Mother. Pancreatitis PREVIOUS FUNCTIONAL STATUS/SOCIAL/FAMILY SUPPORTS:: Joyce lives alone in an apartment in [place]. Her family owns the building and her mother lives in another unit. 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 CURRENT FUNCTIONAL STATUS:: Joyce was sitting up in bed surrounded by friends and family when CM came to see her. She agreed to conversation but was very guarded in her responses, looking to her mother to respond for her. She has had additional testing today and is in some discomfort she says, although its not too bad right now.Based on the results of her studies, Joyce may be transferred to [facility] [place] emergent ER[place]. ADVANCE DIRECTIVES:: None on file Has patient been provided with information about the portal?: No Did the patient sign up for the portal?: No CODE STATUS:: Full Code INSURANCE COVERAGE / FINANCIAL ISSUES:: [employer] CURRENT HOME/COMMUNITY SERVICES/EQUIPMENT:: none PRIMARY CARE PHYSICIAN:: Joyce Wright POTENTIAL DISCHARGE NEEDS:: Follow up with PCP and discharge plan of care PATIENT/FAMILY EDUCATION NEEDS:: Discharge plan, limitations, follow up plan, Ask Me Three TRANSPORTATION:: via private vehicle with friends or family PLAN:: Joyce's discharge plan will depend on the course of her illness. During the course of the day, her WBC has risen and she is now febrile at 38.2. Her provider has contacted GI at [facility] and she nay need emergent transfer for ERCP. CM will continue to support patient, family and discharge planning needs.
--- NOTE | 2019-12-14 11:45 | DI.MRI_ITS ---
EXAM: MR ABDOMEN WO/W CLINICAL HISTORY: QUESTIONABLE PANCREATIC MASS. TECHNIQUE: Multiplanar multisequence MRI was performed. COMPARISON: MRI ABDOMEN WO CONTRAST from 03/09/2010 CT ABDOMEN PELVIS W from 12/13/2019 FINDINGS: There are now tiny bilateral pleural effusions. Some fluid is seen around the spleen and in the uppe r abdomen. The previously noted lesion in the head of the pancreas now shows significantly increased surrounding inflammation and wall thickening. The adjacent head of the pancreas appears normal. Th e findings may represent an inflamed duodenal diverticulum versus diverticulum originating from a manley creatic duct. The pancreatic and biliary and common bile ducts are not dilated. The pancreatic sign al appears normal. The gallbladder is unremarkable. There is no visible gastric or small bowel dila tation. There is a 2 centimeter lesion in the lateral right lobe of the liver, which is faintly high T2 signal. This is not visible on the previous CT. The kidneys and spleen are unremarkable. IMPRESSION: Increasing inflammation involving the lesion near the pancreatic head. The lesion appears to represe nt a duodenal diverticulum lying adjacent to the pancreatic head. There is increased fluid is seen i n the upper abdomen as well as tiny bilateral pleural effusions.
[2019-12-14] MEDS: Gadoterate meglumine 20 ML VIAL 14 ML IVP (12:07)
--- NOTE | 2019-12-14 12:28 | DI.US_ITS ---
EXAM: US ABDOMEN CLINICAL HISTORY: ACUTE PANCREATITIS, QUESTION OF PANCREATIC MASS TECHNIQUE: Ultrasound performed using standard protocol. COMPARISON: ABDOMINAL MRI 12/14/19 FINDINGS: The liver is normal in size and echogenicity. No biliary dilatation is seen. No focal liver lesion is identified. There is a faintly visualized rounded lesion on the previous MRI. The gallbladder is unremarkable, without evidence of stones or wall thickening. Pancreas is not completely visualized. Adjacent to the pancreatic head, there is a thick-walled area containing debris and a small amount of fluid as well as an apparent shadowing stone measuring 2.5 cm. This is consistent with the divert iculum seen on the previous examinations. The kidneys, spleen and aorta are unremarkable. IMPRESSION: The diverticulum seen on previous examinations is identified by ultrasound and contains an apparent s hadowing stone and appears inflamed. Lesion seen in the liver on MRI is not visible by ultrasound.
[2019-12-14] MEDS: Methylnaltrexone 12 MG/0.6 ML VIAL SC (13:20)
--- NOTE | 2019-12-14 14:37 | PHARADMIT ---
Addendum entered by Hoang Merida III 12/18/19 16:03: Pharmacy Note Subjective Went to [facility] yesterday for ECRP procedure Objective BP-116/79 HR-103 CRP-14.43 K+3.4 lABS-wnl Assessment IV ABX changeD to Meropenem 2gm Q8H, On Dilaudid for pain. Plan PLAN IS FOR PATIENT TO GO TO SURGERY ONCE PANCREASE SETTLES DOWN. Addendum entered by Karly García 12/16/19 15:46: Pharmacy Note Subjective Requiring IV hydromorphone frequently Objective BP 129/84, HR 115, CRP 22 Assessment duodenal diverticulitis found (not acute pancreatitis) Plan Continue broad spectrum coverage with meropenem; transfer to [facility] tomorrow Original Note: Admission Pharmacy Clinical Review acute pancreatitis Code Status Full Code Current Weight 73.1 kg Renally Cleared and Narrow Therapeutic Index Meds Crcl ~91.24 mL/min QTc Value / Action Taken n/a BP Control, Fever BP 111/74 Tmax 37.6 Electrolytes reviewed mag 1.2 DVT Prophylaxis none Opiate Usage / Scheduled Bowel Regimen Ordered prn/ rocio and prn Plt/SCr for Heparin / Enoxaparin plt 264 SCr 0.71 INR for Warfarin n/a H/H stable, WBC/Bands h/h 12.2/37.9 wbc 14.87 Antibiotic appropriateness none Cultures and Sensitivities none Surgical ABX d/c within 24 hr n/a DM control / Insulin Dosing BG 79 none Heart Failure (Check EF%) (MILTON's, B-Block, Diuretics) none IV to PO Switch n/a Home Meds Reviewed yes Home Meds Not Ordered PO control, ibuprofen, ondansetron (has other antiemetics), oxycodone (has other pain meds ordered) Comments abdominal US and MRI done today
--- NOTE | 2019-12-14 15:20 | CHAPLAIN ---
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 She was in bed when I stopped and had three visitors, family members with her. Blanka said she is trying to rest off and on, must clearly uncomfortable at times. I will continue to visit.
[2019-12-14 16:09] VITALS: TEMP 38.4
[2019-12-14] MEDS: Acetaminophen 325 MG TAB PO (16:09)
[2019-12-14 16:15] VITALS: BP 123/76; PULSE 120; RESP 18; TEMP 38.2; O2SAT 95
--- NOTE | 2019-12-14 16:20 | PGE_ITS ---
Date of Service Date of service: 12/14/19 Time of Service: 16:21 Assessment and Plan Assessment and plan (1) Pancreatic duct calculus: Status: Suspected Assessment and plan: Per abdominal ultrasound there appears to be a dense white lesion causing posterior acoustic shadowing over the pancreatic duct suspicious for a pancreatic duct stone. Awaiting conversation with [facility] GI department regarding transfer for ERCP and endoscopic ultrasound (2) Pancreatic duct leak: Status: Acute Assessment and plan: Her acute pancreatitis is suspected due to a pancreatic duct leak. Remainder the pancreas appears normal on ultrasound and MRI (3) Pancreatitis: Status: Chronic Assessment and plan: We will keep the patient n.p.o. continue with aggressive fluid hydration narcotic analgesics and antiemetics. I have ordered blood cultures and repeat labs including inflammatory markers and will start the patient on meropenem. Awaiting discussion with [facility] GI department regarding emergent transfer for endoscopic ultrasound and/or endoscopic retrograde pancreatoscopy with sphincterotomy Qualifiers: Chronicity: acute Pancreatitis type: idiopathic Acute pancreatitis co mplication: unspecified Qualified Code(s): K85.00 - Idiopathic acute pancreatitis without necrosis or infection (4) Pancreatic divisum: Status: Acute Subjective Subjective Interval history since last seen: Patient continues to have epigastric and left upper quadrant abdominal pain with nausea but no vomiting. She is requiring frequent doses of Dilaudid every 1-2 hours. She remains tachycardic. She was afebrile this morning when I made rounds and saw her this morning but this afternoon she is now having a fever 38.2. White blood cell count which was minimally elevated on admission at 11,000 480 is up to 14,800 this morning with a repeat level pending at this time. LFTs were normal with the exception of a minimally elevated bilirubin at 1.3 this morning. Magnesium was low at 1.2 which I corrected with 4 g bolus of magnesium sulfate. I spoke with [facility] gastroenterology department talking with Dr. Richmond who reviewed the films from yesterday from her CT scan with Dr. Hayes. They feel that most likely this is a inflammatory process probably a pancreatic ductal leak causing her acute pancreatitis. They recommend continued conservative treatment with IV fluids analgesics and antiemetics and try to advance her diet. If she responds to such treatment they recommend outpatient endoscopic ultrasound for definitive diagnosis and/or sphincterotomy. However since I spoke with Dr. Jay this morning the patient has developed a fever 38.2 I have reviewed her MRI of her abdomen and her abdominal ultrasound with Dr. Maria Isabel Guzman. Dr. Guzman really could not give me any more information off the MRI except to say that this appears to be an exophytic inflammatory appearing lesion probably docked off of the pancreas. Said the rest of the body the pancreas look normal. However the ultrasound looks suspicious for a stone in this ductal mass with post acoustic shadowing. In light of her fever I am concerned that she has an obstruction and infection. I have ordered blood cultures and repeat blood work including BMP and liver profile and inflammatory markers including procalcitonin and blood lactate and CRP. Blood cultures are pending and I am going to start her on meropenem and treat this as a peripancreatic infected phlegmon. I put a call out to [facility] to speak with Dr. Richmond or 1 of her colleagues to discuss possible transfer for emergent ERCP. Exam Narrative Exam Narrative: Young female lying in bed in moderate amount of pain. Abdomen slightly distended but soft with hypoactive bowel sounds with diffuse tenderness with more localized tenderness in the epigastrium in the right and left upper quadrant. Nontender in the lower quadrants. Objective Objective Clinical Data: Abnormal lab results 12/13/19 12/13/19 12/14/19 Range/Units 14:45 22:05 06:40 WBC (4.4-10.8) k/cumm Absolute Neutrophils (1.2-6.7) k/cumm Absolute Monocytes (0.11-0.7) k/cumm Sodium 135 L (136-145) mmol/L Carbon Dioxide 19.6 L (21.0-32.0) mmol/L Anion Gap 12.4 H (3-11) mmol/L BUN 5 L 2 L 1 L (7-18) mg/dL Calcium 8.0 L 7.2 L 7.2 L (8.5-10.1) mg/dL Magnesium 1.2 L (1.8-2.4) mg/dL Total Bilirubin 1.3 H (0.2-1.0) mg/dL AST 40 H (15-37) U/L Total Protein 5.9 L (6.4-8.2) g/dL Albumin 3.2 L 2.7 L (3.4-5.0) g/dL Lipase 3940 H 1458 H (73-393) U/L 12/14/19 Range/Units 06:40 WBC 14.87 H (4.4-10.8) k/cumm Absolute Neutrophils 11.79 H (1.2-6.7) k/cumm Absolute Monocytes 1.61 H (0.11-0.7) k/cumm Sodium (136-145) mmol/L Carbon Dioxide (21.0-32.0) mmol/L Anion Gap (3-11) mmol/L BUN (7-18) mg/dL Calcium (8.5-10.1) mg/dL Magnesium (1.8-2.4) mg/dL Total Bilirubin (0.2-1.0) mg/dL AST (15-37) U/L Total Protein (6.4-8.2) g/dL Albumin (3.4-5.0) g/dL Lipase (73-393) U/L Vital Signs Temperature 38.2 C H 12/14/19 16:15 Temperature Source Tympanic 12/14/19 16:15 Pulse 120 H 12/14/19 16:15 Pulse Rhythm Regular 12/14/19 08:20 Pulse Strength Normal 12/13/19 17:30 Respiratory Rate 18 12/14/19 16:15 Respiratory Effort Non-Labored 12/14/19 08:20 Respiratory Depth Normal 12/14/19 08:20 Respiratory Pattern Normal 12/14/19 08:20 Blood Pressure 123/76 12/14/19 16:15 Blood Pressure Mean 90 12/13/19 17:30 Blood Pressure Position Right Lateral 12/13/19 17:30 Pulse Oximetry 95 12/14/19 16:15 Oxygen Delivery Method Room Air 12/14/19 16:15 Oxygen Flow Rate 0 12/14/19 16:15 Pain Level 6 12/14/19 14:59 Intake & Output 12/13/19 12/14/19 12/14/19 23:59 11:59 23:59 Intake Total 3000 / 3000 2922.917 / 3937.917 1015 / 3937.917 Output Total 850 / 850 1675 / 2275 600 / 2275 Balance 2150 / 2150 1247.917 / 1662.917 415 / 1662.917 Weight 72.3 kg 73.1 kg Intake: IV 3000 / 3000 2922.917 / 3817.917 895 / 3817.917 Oral 120 / 120 Output: Urine 850 / 850 1675 / 2275 600 / 2275 Other: Urine Color Yellow Light Sujatha Yellow Urine Appearance Clear Clear Clear Urine Odor Normal Normal None Voiding Methods Toilet Toilet Toilet Laboratory Results WBC 14.87 k/cumm (4.4-10.8) H 12/14/19 06:40 RBC 4.11 m/cumm (4.00-5.20) 12/14/19 06:40 Hgb 12.2 g/dL (12.0-15.5) 12/14/19 06:40 Hct 37.9 % (36.0-46.0) 12/14/19 06:40 MCV 92.2 fL (80-95) 12/14/19 06:40 MCH 29.7 pg (27.0-33.0) 12/14/19 06:40 MCHC 32.2 g/dL (32.0-36.0) 12/14/19 06:40 RDW 13.7 % (11.7-14.6) 12/14/19 06:40 Plt Count 264 x1000/uL (130-400) 12/14/19 06:40 MPV 10.7 fL (8.0-11.0) 12/14/19 06:40 Immature Gran % 0.4 % 12/14/19 06:40 Neutrophils % 79.3 12/14/19 06:40 Lymphocytes % 9.2 12/14/19 06:40 Monocytes % 10.8 12/14/19 06:40 Eosinophils % 0.2 12/14/19 06:40 Basophils % 0.1 12/14/19 06:40 Absolute Neutrophils 11.79 k/cumm (1.2-6.7) H 12/14/19 06:40 Absolute Lymphocytes 1.37 k/cumm (1.2-3.4) 12/14/19 06:40 Absolute Monocytes 1.61 k/cumm (0.11-0.7) H 12/14/19 06:40 Absolute Eosinophils 0.03 k/cumm (0.0-0.7) 12/14/19 06:40 Absolute Basophils 0.01 k/cumm (0.0-0.2) 12/14/19 06:40 Differential Comment Agrees w/ instrument 12/13/19 14:45 RBC Morphology Normal 12/13/19 14:45 Sodium 136 mmol/L (136-145) 12/14/19 06:40 Potassium 4.2 mmol/L (3.5-5.1) 12/14/19 06:40 Chloride 104 mmol/L (98-107) 12/14/19 06:40 Carbon Dioxide 19.6 mmol/L (21.0-32.0) L 12/14/19 06:40 Anion Gap 12.4 mmol/L (3-11) H 12/14/19 06:40 BUN 1 mg/dL (7-18) L 12/14/19 06:40 Creatinine 0.71 mg/dL (0.55-1.02) 12/14/19 06:40 Estimated GFR/1.73 m2 >= 60.00 (mL/min/1.73m2) 12/14/19 06:40 Glucose 79 mg/dL (74-106) 12/14/19 06:40 Calcium 7.2 mg/dL (8.5-10.1) L 12/14/19 06:40 Magnesium 1.2 mg/dL (1.8-2.4) L 12/14/19 06:40 Total Bilirubin 1.3 mg/dL (0.2-1.0) H 12/14/19 06:40 AST 20 U/L (15-37) 12/14/19 06:40 ALT 32 U/L (14-59) 12/14/19 06:40 Alkaline Phosphatase 57 U/L (46-116) 12/14/19 06:40 Total Protein 5.9 g/dL (6.4-8.2) L 12/14/19 06:40 Albumin 2.7 g/dL (3.4-5.0) L 12/14/19 06:40 Triglycerides 43 mg/dL (<150) 12/13/19 14:45 Total Cholesterol 173 mg/dL (<200) 12/13/19 14:45 LDL Cholesterol, Calc 72 mg/dL 12/13/19 14:45 HDL Cholesterol 93 mg/dL (40-60) 12/13/19 14:45 Lipase 1458 U/L (73-393) H 12/14/19 06:40 Urine Color Yellow (Yellow) 12/13/19 15:55 Urine Clarity Clear (Clear) 12/13/19 15:55 Urine pH 7.0 (5-8) 12/13/19 15:55 Ur Specific [place] 1.025 (1.005-1.025) 12/13/19 15:55 Urine Protein Negative mg/dL (Negative) 12/13/19 15:55 Urine Ketones 40 mg/dL (Negative) H 12/13/19 15:55 Urine Blood Negative (Negative) 12/13/19 15:55 Urine Nitrite Negative (Negative) 12/13/19 15:55 Urine Bilirubin Small (Negative) H 12/13/19 15:55 Urine Urobilinogen 2.0 EU/dL (Up TO 0.2) H 12/13/19 15:55 Ur Leukocyte Esterase Negative (Negative) 12/13/19 15:55 Urine Glucose Negative mg/dL (Negative) 12/13/19 15:55
[2019-12-14 16:33] LABS: Lactate 0.8 mmol/L (0.6-1.4)
[2019-12-14 16:36] LABS: HCT 38.5 % (36.0-46.0); HGB 12.5 g/dL (12.0-15.5); Mean Corp. HGB Concentration 32.5 g/dL (32.0-36.0); Mean Corpuscular Hemoglobin 30.2 pg (27.0-33.0); Mean Platelet Volume 10.6 fL (8.0-11.0); Platelet Count 270 x1000/uL (130-400); RBC 4.14 m/cumm (4.00-5.20); RBC Distribution Width 13.9 % (11.7-14.6); White Blood Cell Count 17.57 k/cumm (4.4-10.8)
[2019-12-14 16:49] LABS: Absolute Lymphocyte Count 1.41 k/cumm (1.2-3.4); Absolute Monocyte Count 1.76 k/cumm (0.11-0.7); Absolute Neutrophil Count 14.41 k/cumm (1.2-6.7); Atypical Lymphocytes % 2; C-Reactive Protein 21.38 mg/dL (0.0-0.3)
[2019-12-14 16:50] LABS: Diff Comment Manual Differential; RBC Morphology Normal
[2019-12-14 16:53] LABS: ALT 29 U/L (14-59); AST 17 U/L (15-37); Albumin 2.7 g/dL (3.4-5.0); Alkaline Phosphatase 62 U/L (46-116); Anion Gap 8.7 mmol/L (3-11); BUN 2 mg/dL (7-18); Bilirubin, Direct 1.18 mg/dL (0.00-0.20); Bilirubin, Total 1.7 mg/dL (0.2-1.0); CO2 21.3 mmol/L (21.0-32.0); CREATININE 0.55 mg/dL (0.55-1.02); Calcium 7.7 mg/dL (8.5-10.1); Chloride 105 mmol/L (98-107); Glucose 86 mg/dL (74-106); Potassium 4.9 mmol/L (3.5-5.1); Sodium 135 mmol/L (136-145); Total Protein 6.2 g/dL (6.4-8.2)
[2019-12-14 17:14] LABS: ESR 15 mm/hr (0-20)
[2019-12-14 17:16] LABS: Procalcitonin 0.6 ng/mL
[2019-12-14] MEDS: Normal Saline 1,000 ML 200 ML IV ×2 (17:55→22:40)
--- NOTE | 2019-12-14 18:39 | DI.VRAD_ITS ---
PROCEDURE INFORMATION: Exam: MR Abdomen Without and With Contrast Exam date and time: 12/14/2019 12:27 PM Age: 24 years old Clinical indication: Abnormal findings; Abnormal radiologic finding of the abdomen; Radiologic exam and body structure: Questionable pancreatic mass TECHNIQUE: Imaging protocol: MR of the abdomen without and with intravenous contrast. COMPARISON: CT ABDOMEN PELVIS W 12/13/2019 1:00 AM FINDINGS: Liver: There is a 2.0 x 1.8 x 1.7 cm lesion in the right hepatic lobe demonstrating faint T2 hyperintensity with T1 isointensity on precontrast imaging, no significant diffusion restriction, arterial phase under enhancement on the dynamic images, and delayed phase isoenhancing it to mild hyperenhancement. The features are not entirely typical of hepatic hemangioma, although atypical hemangioma would be the favored imaging diagnosis at this point. The features are not suggestive of a hepatic cyst, and the lack of arterial phase enhancement goes against focal nodular hyperplasia. There were no other hepatic lesions present to favor metastatic disease. At this point, consider liver ultrasound to see if this lesion can be identified sonographically to evaluate for homogeneous hyperechogenicity suggestive of hemangioma. Gallbladder and bile ducts: The gallbladder is moderately distended and normal in appearance.. Pancreas: The probable inflamed diverticulum described above does abut the anterior margin of the uncinate process, however a pancreatic origin is considered unlikely at this point. No pancreatic ductal dilatation. The inflammatory changes/fluid tracking in the anterior para renal space around the pancreas could potentially relate to an element of pancreatitis, clinical correlation recommended. Spleen: Unremarkable. No splenomegaly. Adrenals: Unremarkable. No mass. Kidneys and ureters: Unremarkable. No solid mass. No hydronephrosis. Stomach and bowel: The previously identified cystic structure along the anterior margin of the 3rd portion of the duodenum adjacent to the uncinate process of the pancreas is again noted. It measures 4 cm AP by 3.1 cm transverse by 3 cm craniocaudal and contains a 2.6 x 2.0 by 2.3 cm hypoechoic smoothly contoured structure within its lumen which demonstrates central gaseous degeneration. 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 There is increased wall thickening of the structure, suggesting progression of diverticulitis, and there is increased inflammatory stranding around the pancreatic head and extending in the rightward anterior para renal space, as well as a small amount of reactive ascites in the upper abdomen. Other etiologies such as neoplasm are considered unlikely at this point. Surgical consultation recommended. Oral contrast assessment with CT or water-soluble upper GI series might be helpful, however given the findings suggestive of diverticulitis, of the fecalith may be obstructing the lumen. Intraperitoneal space: Small amount of intraperitoneal free fluid in the upper abdomen. Arteries: No abdominal aortic aneurysm. Bones/joints: Unremarkable. Soft tissues: Unremarkable. IMPRESSION: 1. The 4 x 3.1 x 3.0 cm lesion along the anterior margin of the 3rd portion of the duodenum is significantly more inflamed on today's study, with increased wall thickness. 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 No definite perforation. Surgical consultation recommended. 2. No evidence of associated biliary ductal obstruction or pancreatic ductal obstruction. 3. There is moderate inflammatory stranding in the anterior para renal space extending bilaterally and surrounding the pancreas as well. It is difficult to exclude an element of pancreatitis, clinical/laboratory correlation recommended. 4. There is a 2 cm lesion in the right hepatic lobe in the lateral subcapsular region. Atypical hemangioma is favored although the MRI features are not entirely specific. I would recommend performing a liver ultrasound assessment to evaluate for homogeneous hyperechogenicity in the lesion to confirm an appearance of hemangioma. 5. These findings initiated a critical results reporting process. An addendum will be issued at the time of clincian notification. Dictated and Authenticated by: Stanley Gregg MD. Ordering:[facility] Naila Piper MD
--- NOTE | 2019-12-14 18:49 | DI.VRAD_ITS ---
Addendum created by Stanley Gregg MD on 12/14/2019 6:49:16 PM EST Addendum: The findings and recommendations were verbally communicated via telephone conference with Dr. Escoto at 6:48 PM EST on 12/14/2019. The findings were acknowledged and understood. Initial report created on 12/14/2019 6:39:05 PM EST PROCEDURE INFORMATION: Exam: MR Abdomen Without and With Contrast Exam date and time: 12/14/2019 12:27 PM Age: 24 years old Clinical indication: Abnormal findings; Abnormal radiologic finding of the abdomen; Radiologic exam and body structure: Questionable pancreatic mass TECHNIQUE: Imaging protocol: MR of the abdomen without and with intravenous contrast. COMPARISON: CT ABDOMEN PELVIS W 12/13/2019 1:00 AM FINDINGS: Liver: There is a 2.0 x 1.8 x 1.7 cm lesion in the right hepatic lobe demonstrating faint T2 hyperintensity with T1 isointensity on precontrast imaging, no significant diffusion restriction, arterial phase under enhancement on the dynamic images, and delayed phase isoenhancing it to mild hyperenhancement. The features are not entirely typical of hepatic hemangioma, although atypical hemangioma would be the favored imaging diagnosis at this point. The features are not suggestive of a hepatic cyst, and the lack of arterial phase enhancement goes against focal nodular hyperplasia. There were no other hepatic lesions present to favor metastatic disease. At this point, consider liver ultrasound to see if this lesion can be identified sonographically to evaluate for homogeneous hyperechogenicity suggestive of hemangioma. Gallbladder and bile ducts: The gallbladder is moderately distended and normal in appearance.. Pancreas: The probable inflamed diverticulum described above does abut the anterior margin of the uncinate process, however a pancreatic origin is considered unlikely at this point. No pancreatic ductal dilatation. The inflammatory changes/fluid tracking in the anterior para renal space around the pancreas could potentially relate to an element of pancreatitis, clinical correlation recommended. Spleen: Unremarkable. No splenomegaly. Adrenals: Unremarkable. No mass. Kidneys and ureters: Unremarkable. No solid mass. No hydronephrosis. Stomach and bowel: The previously identified cystic structure along the anterior margin of the 3rd portion of the duodenum adjacent to the uncinate process of the pancreas is again noted. It measures 4 cm AP by 3.1 cm transverse by 3 cm craniocaudal and contains a 2.6 x 2.0 by 2.3 cm hypoechoic smoothly contoured structure within its lumen which demonstrates central gaseous degeneration. 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 There is increased wall thickening of the structure, suggesting progression of diverticulitis, and there is increased inflammatory stranding around the pancreatic head and extending in the rightward anterior para renal space, as well as a small amount of reactive ascites in the upper abdomen. Other etiologies such as neoplasm are considered unlikely at this point. Surgical consultation recommended. Oral contrast assessment with CT or water-soluble upper GI series might be helpful, however given the findings suggestive of diverticulitis, of the fecalith may be obstructing the lumen. Intraperitoneal space: Small amount of intraperitoneal free fluid in the upper abdomen. Arteries: No abdominal aortic aneurysm. Bones/joints: Unremarkable. Soft tissues: Unremarkable. IMPRESSION: 1. The 4 x 3.1 x 3.0 cm lesion along the anterior margin of the 3rd portion of the duodenum is significantly more inflamed on today's study, with increased wall thickness. 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 No definite perforation. Surgical consultation recommended. 2. No evidence of associated biliary ductal obstruction or pancreatic ductal obstruction. 3. There is moderate inflammatory stranding in the anterior para renal space extending bilaterally and surrounding the pancreas as well. It is difficult to exclude an element of pancreatitis, clinical/laboratory correlation recommended. 4. There is a 2 cm lesion in the right hepatic lobe in the lateral subcapsular region. Atypical hemangioma is favored although the MRI features are not entirely specific. I would recommend performing a liver ultrasound assessment to evaluate for homogeneous hyperechogenicity in the lesion to confirm an appearance of hemangioma. 5. These findings initiated a critical results reporting process. An addendum will be issued at the time of clincian notification. Dictated and Authenticated by: Stanley Gregg MD. Ordering:[facility] Naila Piper MD
[2019-12-14] MEDS: Pantoprazole 40 MG VIAL IVP (19:16)
--- NOTE | 2019-12-14 21:28 | W.PM.PROGNOT ---
Date of Service Date of service: 12/14/19 Time of Service: 21:28 Subjective Subjective Interval history since last seen: Received call from [facility] approximately 1900. Findings of note for delineation of previously noted mass as in fact duodenal diverticulitis, no perforation or abcess. Reviewed case with [facility] for possible transfer, my concern being the concurrence of diverticulitis and pancreatitis in the setting of pancreatic divisum, and the potential complicating interactions therefrom. They advise continued medical management as currently (NPO, IVF, antibiotics, analgesics). They would not contemplate any urgent intervention for the pancreatitis (viz, ERCP) until pancreatitis quiets down, and it is agreed there is no clinical indication at present for anything but medical management of the diverticulitis. Will maintain as is. Objective Objective Clinical Data: Abnormal lab results 12/13/19 12/14/19 12/14/19 Range/Units 22:05 06:40 06:40 WBC 14.87 H (4.4-10.8) k/cumm Absolute Neutrophils 11.79 H (1.2-6.7) k/cumm Absolute Monocytes 1.61 H (0.11-0.7) k/cumm Sodium 135 L (136-145) mmol/L Carbon Dioxide 19.6 L (21.0-32.0) mmol/L Anion Gap 12.4 H (3-11) mmol/L BUN 2 L 1 L (7-18) mg/dL Calcium 7.2 L 7.2 L (8.5-10.1) mg/dL Magnesium 1.2 L (1.8-2.4) mg/dL Total Bilirubin 1.3 H (0.2-1.0) mg/dL Conjugated Bilirubin (0.00-0.20) mg/dL C-Reactive Protein (0.0-0.3) mg/dL Total Protein 5.9 L (6.4-8.2) g/dL Albumin 2.7 L (3.4-5.0) g/dL Lipase 1458 H (73-393) U/L 12/14/19 12/14/19 12/14/19 Range/Units 16:19 16:19 16:19 WBC 17.57 H (4.4-10.8) k/cumm Absolute Neutrophils 14.41 H (1.2-6.7) k/cumm Absolute Monocytes 1.76 H (0.11-0.7) k/cumm Sodium 135 L (136-145) mmol/L Carbon Dioxide (21.0-32.0) mmol/L Anion Gap (3-11) mmol/L BUN 2 L (7-18) mg/dL Calcium 7.7 L (8.5-10.1) mg/dL Magnesium (1.8-2.4) mg/dL Total Bilirubin 1.7 H (0.2-1.0) mg/dL Conjugated Bilirubin 1.18 H (0.00-0.20) mg/dL C-Reactive Protein 21.38 H (0.0-0.3) mg/dL Total Protein 6.2 L (6.4-8.2) g/dL Albumin 2.7 L (3.4-5.0) g/dL Lipase (73-393) U/L Vital Signs Temperature 38.2 C H 12/14/19 16:15 Temperature Source Tympanic 12/14/19 16:15 Pulse 120 H 12/14/19 16:15 Pulse Rhythm Regular 12/14/19 08:20 Pulse Strength Normal 12/13/19 17:30 Respiratory Rate 18 12/14/19 16:15 Respiratory Effort Non-Labored 12/14/19 08:20 Respiratory Depth Normal 12/14/19 08:20 Respiratory Pattern Normal 12/14/19 08:20 Blood Pressure 123/76 12/14/19 16:15 Blood Pressure Mean 90 12/13/19 17:30 Blood Pressure Position Right Lateral 12/13/19 17:30 Pulse Oximetry 95 12/14/19 16:15 Oxygen Delivery Method Room Air 12/14/19 16:15 Oxygen Flow Rate 0 12/14/19 16:15 Pain Level 5 12/14/19 19:24 Intake & Output 12/13/19 12/14/19 12/14/19 23:59 11:59 23:59 Intake Total 3000 / 3000 2922.917 / 4767.917 1845 / 4767.917 Output Total 850 / 850 1675 / 2275 600 / 2275 Balance 2150 / 2150 1247.917 / 2492.917 1245 / 2492.917 Weight 72.3 kg 73.1 kg Intake: IV 3000 / 3000 2922.917 / 4647.917 1725 / 4647.917 Oral 120 / 120 Output: Urine 850 / 850 1675 / 2275 600 / 2275 Other: Urine Color Yellow Light Sujatha Yellow Urine Appearance Clear Clear Clear Urine Odor Normal Normal None Voiding Methods Toilet Toilet Toilet Laboratory Results WBC 17.57 k/cumm (4.4-10.8) H 12/14/19 16:19 RBC 4.14 m/cumm (4.00-5.20) 12/14/19 16:19 Hgb 12.5 g/dL (12.0-15.5) 12/14/19 16:19 Hct 38.5 % (36.0-46.0) 12/14/19 16:19 MCV 93.0 fL (80-95) 12/14/19 16:19 MCH 30.2 pg (27.0-33.0) 12/14/19 16:19 MCHC 32.5 g/dL (32.0-36.0) 12/14/19 16:19 RDW 13.9 % (11.7-14.6) 12/14/19 16:19 Plt Count 270 x1000/uL (130-400) 12/14/19 16:19 MPV 10.6 fL (8.0-11.0) 12/14/19 16:19 Immature Gran % 0.0 % 12/14/19 16:19 Neutrophils % 80.0 12/14/19 16:19 Band Neutrophils % 2.0 % 12/14/19 16:19 Lymphocytes % 6.0 12/14/19 16:19 Atypical Lymphs % 2 12/14/19 16:19 Monocytes % 10.0 12/14/19 16:19 Eosinophils % 0.0 12/14/19 16:19 Basophils % 0.0 12/14/19 16:19 Absolute Neutrophils 14.41 k/cumm (1.2-6.7) H 12/14/19 16:19 Absolute Lymphocytes 1.41 k/cumm (1.2-3.4) 12/14/19 16:19 Absolute Monocytes 1.76 k/cumm (0.11-0.7) H 12/14/19 16:19 Absolute Eosinophils 0.00 k/cumm (0.0-0.7) 12/14/19 16:19 Absolute Basophils 0.00 k/cumm (0.0-0.2) 12/14/19 16:19 Differential Comment Manual differential 12/14/19 16:19 RBC Morphology Normal 12/14/19 16:19 ESR 15 mm/hr (0-20) 12/14/19 16:19 Sodium 135 mmol/L (136-145) L 12/14/19 16:19 Potassium 4.9 mmol/L (3.5-5.1) 12/14/19 16:19 Chloride 105 mmol/L (98-107) 12/14/19 16:19 Carbon Dioxide 21.3 mmol/L (21.0-32.0) 12/14/19 16:19 Anion Gap 8.7 mmol/L (3-11) 12/14/19 16:19 BUN 2 mg/dL (7-18) L 12/14/19 16:19 Creatinine 0.55 mg/dL (0.55-1.02) 12/14/19 16:19 Estimated GFR/1.73 m2 >= 60.00 (mL/min/1.73m2) 12/14/19 16:19 Glucose 86 mg/dL (74-106) 12/14/19 16:19 Lactate 0.8 mmol/L (0.6-1.4) 12/14/19 16:19 Calcium 7.7 mg/dL (8.5-10.1) L 12/14/19 16:19 Magnesium 1.2 mg/dL (1.8-2.4) L 12/14/19 06:40 Total Bilirubin 1.7 mg/dL (0.2-1.0) H 12/14/19 16:19 Conjugated Bilirubin 1.18 mg/dL (0.00-0.20) H 12/14/19 16:19 AST 17 U/L (15-37) 12/14/19 16:19 ALT 29 U/L (14-59) 12/14/19 16:19 Alkaline Phosphatase 62 U/L (46-116) 12/14/19 16:19 C-Reactive Protein 21.38 mg/dL (0.0-0.3) H 12/14/19 16:19 Total Protein 6.2 g/dL (6.4-8.2) L 12/14/19 16:19 Albumin 2.7 g/dL (3.4-5.0) L 12/14/19 16:19 Triglycerides 43 mg/dL (<150) 12/13/19 14:45 Total Cholesterol 173 mg/dL (<200) 12/13/19 14:45 LDL Cholesterol, Calc 72 mg/dL 12/13/19 14:45 HDL Cholesterol 93 mg/dL (40-60) 12/13/19 14:45 Lipase 1458 U/L (73-393) H 12/14/19 06:40 Procalcitonin 0.6 ng/mL 12/14/19 16:19 Urine Color Yellow (Yellow) 12/13/19 15:55 Urine Clarity Clear (Clear) 12/13/19 15:55 Urine pH 7.0 (5-8) 12/13/19 15:55 Ur Specific [place] 1.025 (1.005-1.025) 12/13/19 15:55 Urine Protein Negative mg/dL (Negative) 12/13/19 15:55 Urine Ketones 40 mg/dL (Negative) H 12/13/19 15:55 Urine Blood Negative (Negative) 12/13/19 15:55 Urine Nitrite Negative (Negative) 12/13/19 15:55 Urine Bilirubin Small (Negative) H 12/13/19 15:55 Urine Urobilinogen 2.0 EU/dL (Up TO 0.2) H 12/13/19 15:55 Ur Leukocyte Esterase Negative (Negative) 12/13/19 15:55 Urine Glucose Negative mg/dL (Negative) 12/13/19 15:55
[2019-12-15] VITALS (11 sets, daily range): BP systolic 108–123; BP diastolic 63–83; PULSE 110–127; RESP 16–20; TEMP 37–38.5; O2SAT 90–97
[2019-12-15] MEDS: HYDROmorphone 2 MG/ML VIAL IVP ×10 (00:28→23:09)
[2019-12-15] MEDS: Normal Saline Flush 10 ML SYR IVP ×9 (00:29→23:09)
[2019-12-15] MEDS: diphenhydrAMINE 25 MG CAP PO ×3 (02:35→20:04)
[2019-12-15] MEDS: Normal Saline 1,000 ML 200 ML IV ×3 (03:45→14:12)
[2019-12-15] MEDS: Acetaminophen 325 MG TAB PO ×2 (04:49→23:10)
[2019-12-15 06:29] LABS: HCT 36.2 % (36.0-46.0); HGB 11.5 g/dL (12.0-15.5); Mean Corp. HGB Concentration 31.8 g/dL (32.0-36.0); Mean Corpuscular Hemoglobin 29.6 pg (27.0-33.0); Mean Corpuscular Volume 93.3 fL (80-95); Mean Platelet Volume 10.8 fL (8.0-11.0); Platelet Count 255 x1000/uL (130-400); RBC 3.88 m/cumm (4.00-5.20); RBC Distribution Width 13.8 % (11.7-14.6); White Blood Cell Count 15.34 k/cumm (4.4-10.8)
[2019-12-15 06:52] LABS: ALT 23 U/L (14-59); AST 13 U/L (15-37); Albumin 2.2 g/dL (3.4-5.0); Alkaline Phosphatase 68 U/L (46-116); BUN 1 mg/dL (7-18); Bilirubin, Total 2.3 mg/dL (0.2-1.0); CREATININE 0.56 mg/dL (0.55-1.02); Calcium 7.6 mg/dL (8.5-10.1); Chloride 103 mmol/L (98-107); Glucose 79 mg/dL (74-106); Lipase 175 U/L (73-393); Potassium 4.4 mmol/L (3.5-5.1); Sodium 133 mmol/L (136-145); Total Protein 5.7 g/dL (6.4-8.2)
[2019-12-15 07:28] LABS: Absolute Eosinophil Count 0.31 k/cumm (0.0-0.7); Absolute Lymphocyte Count 1.69 k/cumm (1.2-3.4); Absolute Monocyte Count 2.15 k/cumm (0.11-0.7); Diff Comment Manual Differential; RBC Morphology Normal
[2019-12-15] MEDS: Pantoprazole 40 MG VIAL IVP (08:37)
[2019-12-15] MEDS: Docusate Sodium 100 MG CAP PO ×2 (08:37→12:53)
[2019-12-15 11:12] LABS: Magnesium 1.8 mg/dL (1.8-2.4)
[2019-12-15] MEDS: Milk of Magnesia 30 ML CUP PO (12:53)
--- NOTE | 2019-12-15 15:14 | W.NUTCONSULT ---
Date of service: 12/15/19 Time of Service: 15:14 Nutritional Consult ASSESSMENT: 24 year old female admitted with congential pancreatic divisum, now with diverticulitis with several days of n/v. NPO day 2. BMI overweight status. At high nutritional risk in view of poor intake for several days prior to admit, now NPO x 2 days. Will monitor diet advancement and make recommendations as needed. MONITORING AND EVALUATION: diet advancement, po intake, weight, labs Time Spent in Nutritional Counseling and Treatment: 0 time spent face to face
--- NOTE | 2019-12-15 15:29 | CHAPLAIN ---
Blanka continues to rest in bed. She said she is feeling better today. Her grandmother is with her. 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
--- NOTE | 2019-12-15 17:44 | CMPROGNOTE_ITS ---
- If Service Date Differs Date of service: 12/15/19 Time of Service: 17:44 Care Management Progress Note S/O: Joyce was sitting up in bed when CM met with her. Her friend and co worker, Elyse was in the room with her. Joyce had difficulty engaging in conversation, not making eye contact, and reported that she was not feeling well. Elyse reported that there was a surgical consult for today to determine next steps. Per MD, she may have an endoscopic u/s. CM will continue to follow. A: Joyce is a 24 year old female admitted to [facility] on 12/13/2019 with acute pancreatitis. P: Anticipate Joyce will return home with no additional services when medically cleared. She will follow up with her PCP and specialists as recommended. She will transport home via private vehicle with family. CM will continue to follow and support discharge planning considerations.
--- NOTE | 2019-12-15 18:30 | W.PM.PROGNOT ---
Date of Service Date of service: 12/15/19 Time of Service: 18:30 Assessment and Plan Assessment and plan (1) Diverticulitis of duodenum: Status: Acute Assessment and plan: The MRI from last evening came back with diverticulitis of the duodenum. There is a collection 4 x 3.1 x 3.0 cm that appears to have a fecalith within it. There is surrounding inflammation and edema. There was no evidence of perforation. We have asked Dr. Marsha Ford to see her from general surgery. Will liberalize her diet to clear liquids. Continue to trend her labs and physical exam. Empiric therapy with meropenem. Continue IV fluids. Her continued tachycardia is somewhat worrisome. Blood pressures have stabilized. (2) Pancreatic divisum: Status: Acute Assessment and plan: Her lipase has normalized. At this point this does not appear to be directly related to her pancreatic divisum. [place] at [facility] [place] been apprised of these new findings and does not feel the need for transfer at this time. Subjective Subjective Interval history since last seen: Patient spiked fevers to 38 5 overnight. Today her mom was concerned that she looked watt and felt she looked unwell. Patient still feels lousy. She still has some abdominal pain. She is thirsty but not hungry. Her pain is made worse when she tries to move side to side. She feels like there has been some evolving abdominal pain over the last month or so. Exam Narrative Exam Narrative: On exam she does display a somewhat depressed affect. Otherwise does not appear in any significant distress. Her lung exam is clear on the right and left. Heart sounds notably rapid, (pulse 122). No murmur. No skipped beats. Her abdomen is overall soft with vague tenderness generally in the right upper quadrant and midline epigastric region. No associated masses. No guarding or rebound. The lower extremities show no significant edema. Neurologically no focal deficits are noted. Objective Objective Clinical Data: Abnormal lab results 12/15/19 12/15/19 Range/Units 06:05 06:05 WBC 15.34 H (4.4-10.8) k/cumm RBC 3.88 L (4.00-5.20) m/cumm Hgb 11.5 L (12.0-15.5) g/dL MCHC 31.8 L (32.0-36.0) g/dL Absolute Neutrophils 11.20 H (1.2-6.7) k/cumm Absolute Monocytes 2.15 H (0.11-0.7) k/cumm Sodium 133 L (136-145) mmol/L Carbon Dioxide 18.0 L (21.0-32.0) mmol/L Anion Gap 12.0 H (3-11) mmol/L BUN 1 L (7-18) mg/dL Calcium 7.6 L (8.5-10.1) mg/dL Total Bilirubin 2.3 H (0.2-1.0) mg/dL AST 13 L (15-37) U/L Total Protein 5.7 L (6.4-8.2) g/dL Albumin 2.2 L (3.4-5.0) g/dL Vital Signs Temperature 37.0 C 12/15/19 16:10 Temperature Source Temporal Artery Scan 12/15/19 16:10 Pulse 124 H 12/15/19 16:10 Pulse Rhythm Regular 12/15/19 16:10 Pulse Strength Normal 12/13/19 17:30 Respiratory Rate 17 12/15/19 16:10 Respiratory Effort 12/15/19 16:10 Respiratory Depth Shallow 12/15/19 16:10 Respiratory Pattern Normal 12/15/19 16:10 Blood Pressure 123/83 12/15/19 16:10 Blood Pressure Mean 90 12/13/19 17:30 Blood Pressure Position Right Lateral 12/13/19 17:30 Pulse Oximetry 95 12/15/19 16:10 Oxygen Delivery Method Room Air 12/15/19 16:10 Oxygen Flow Rate 0 12/15/19 16:10 Pain Level 5 12/15/19 17:41 Comment 12/15/19 07:30 Intake & Output 12/14/19 12/15/19 12/15/19 23:59 11:59 23:59 Intake Total 2795 / 5717.917 2083.333 / 4130.000 2046.667 / 4130.000 Output Total 1600 / 3275 1850 / 2350 500 / 2350 Balance 1195 / 2442.917 233.333 / 2407.713 0602.667 / 1780.000 Weight 73.3 kg Intake: IV 2675 / 5597.917 2083.333 / 3330.000 1246.667 / 3330.000 Oral 120 / 120 800 / 800 Output: Urine 1600 / 3275 1850 / 2350 500 / 2350 Other: Urine Color Yellow Light Sujatha Urine Appearance Clear Clear Clear Hematuria Urine Odor None None Comment Patient currently on menses. pt menstrating. PATIENT REPORTED SHE DUMPED HAT. Voiding Methods Toilet Toilet Toilet Laboratory Results WBC 15.34 k/cumm (4.4-10.8) H 12/15/19 06:05 RBC 3.88 m/cumm (4.00-5.20) L 12/15/19 06:05 Hgb 11.5 g/dL (12.0-15.5) L 12/15/19 06:05 Hct 36.2 % (36.0-46.0) 12/15/19 06:05 MCV 93.3 fL (80-95) 12/15/19 06:05 MCH 29.6 pg (27.0-33.0) 12/15/19 06:05 MCHC 31.8 g/dL (32.0-36.0) L 12/15/19 06:05 RDW 13.8 % (11.7-14.6) 12/15/19 06:05 Plt Count 255 x1000/uL (130-400) 12/15/19 06:05 MPV 10.8 fL (8.0-11.0) 12/15/19 06:05 Immature Gran % 0.0 % 12/15/19 06:05 Neutrophils % 73.0 12/15/19 06:05 Band Neutrophils % 2.0 % 12/14/19 16:19 Lymphocytes % 11.0 12/15/19 06:05 Atypical Lymphs % 2 12/14/19 16:19 Monocytes % 14.0 12/15/19 06:05 Eosinophils % 2.0 12/15/19 06:05 Basophils % 0.0 12/15/19 06:05 Absolute Neutrophils 11.20 k/cumm (1.2-6.7) H 12/15/19 06:05 Absolute Lymphocytes 1.69 k/cumm (1.2-3.4) 12/15/19 06:05 Absolute Monocytes 2.15 k/cumm (0.11-0.7) H 12/15/19 06:05 Absolute Eosinophils 0.31 k/cumm (0.0-0.7) 12/15/19 06:05 Absolute Basophils 0.00 k/cumm (0.0-0.2) 12/15/19 06:05 Differential Comment Manual differential 12/15/19 06:05 RBC Morphology Normal 12/15/19 06:05 ESR 15 mm/hr (0-20) 12/14/19 16:19 Sodium 133 mmol/L (136-145) L 12/15/19 06:05 Potassium 4.4 mmol/L (3.5-5.1) 12/15/19 06:05 Chloride 103 mmol/L (98-107) 12/15/19 06:05 Carbon Dioxide 18.0 mmol/L (21.0-32.0) L 12/15/19 06:05 Anion Gap 12.0 mmol/L (3-11) H 12/15/19 06:05 BUN 1 mg/dL (7-18) L 12/15/19 06:05 Creatinine 0.56 mg/dL (0.55-1.02) 12/15/19 06:05 Estimated GFR/1.73 m2 >= 60.00 (mL/min/1.73m2) 12/15/19 06:05 Glucose 79 mg/dL (74-106) 12/15/19 06:05 Lactate 0.8 mmol/L (0.6-1.4) 12/14/19 16:19 Calcium 7.6 mg/dL (8.5-10.1) L 12/15/19 06:05 Magnesium 1.8 mg/dL (1.8-2.4) 12/15/19 06:05 Total Bilirubin 2.3 mg/dL (0.2-1.0) H 12/15/19 06:05 Conjugated Bilirubin 1.18 mg/dL (0.00-0.20) H 12/14/19 16:19 AST 13 U/L (15-37) L 12/15/19 06:05 ALT 23 U/L (14-59) 12/15/19 06:05 Alkaline Phosphatase 68 U/L (46-116) 12/15/19 06:05 C-Reactive Protein 21.38 mg/dL (0.0-0.3) H 12/14/19 16:19 Total Protein 5.7 g/dL (6.4-8.2) L 12/15/19 06:05 Albumin 2.2 g/dL (3.4-5.0) L 12/15/19 06:05 Triglycerides 43 mg/dL (<150) 12/13/19 14:45 Total Cholesterol 173 mg/dL (<200) 12/13/19 14:45 LDL Cholesterol, Calc 72 mg/dL 12/13/19 14:45 HDL Cholesterol 93 mg/dL (40-60) 12/13/19 14:45 Lipase 175 U/L (73-393) 12/15/19 06:05 Procalcitonin 0.6 ng/mL 12/14/19 16:19 Urine Color Yellow (Yellow) 12/13/19 15:55 Urine Clarity Clear (Clear) 12/13/19 15:55 Urine pH 7.0 (5-8) 12/13/19 15:55 Ur Specific [place] 1.025 (1.005-1.025) 12/13/19 15:55 Urine Protein Negative mg/dL (Negative) 12/13/19 15:55 Urine Ketones 40 mg/dL (Negative) H 12/13/19 15:55 Urine Blood Negative (Negative) 12/13/19 15:55 Urine Nitrite Negative (Negative) 12/13/19 15:55 Urine Bilirubin Small (Negative) H 12/13/19 15:55 Urine Urobilinogen 2.0 EU/dL (Up TO 0.2) H 12/13/19 15:55 Ur Leukocyte Esterase Negative (Negative) 12/13/19 15:55 Urine Glucose Negative mg/dL (Negative) 12/13/19 15:55
--- NOTE | 2019-12-15 20:59 | SCONE_ITS ---
Date of service: 12/15/19 Time of Service: 14:00 Assessment and Plan Assessment and plan (1) Diverticulitis of duodenum: Status: Acute Assessment and plan: I agree with antibiotics and conservative management at this point. Due to her complicated anatomy, if surgical intervention is needed I advise transfer. She will definitely need further evaluation which has already been arranged at [facility]. Will follow. History of Present Illness Narrative: This patient was admitted with presumed pancreatitis related to pancreas divisum. She has had this diagnosis since childhood after evaluation at [facility]. She has managed episodes of pain at home by staying NPO. She has had 5 episodes since [place] which is more frequent than the recent past. She continues to have epigastric pain despite normalization of her lipase. S ubsequent US and MRI suggest duodenal diverticulitis. The patient does not recall ever having an ERCP or EGD. She has an endoscopic US scheduled for next week at [facility] [place]. [facility] Medical History (Updated 12/16/19 @ 16:54 by Nan Hagen DO) Anxiety about health (Acute) Pancreatic divisum (Acute) Pancreatitis (Chronic) Family History Mother Pancreatitis Social History Smoking/Tobacco Use Status: Never Alcohol Intake: current Alcohol Intake frequency: a few times a month Drug use: Never Substance use type: does not use Do you feel safe at home: Yes Do you feel safe in your relationship?: Yes Female Reproductive History Menstrual control method: pills History History 0 Para Hx # Term Pregnancies Multiple births Hx # Pregnancies Ectopic pregnancies AB induced Hx Number of Living Children AB spontaneous Exam Narrative Exam Narrative: Alert Abdomen soft, slightly bloated. Very tender in epigastric and RUQ regions No generalized peritonitis Results Last Vital Signs Temp 98.6 F 12/15/19 16:10 Pulse 124 H 12/15/19 16:10 Resp 17 12/15/19 16:10 BP 123/83 12/15/19 16:10 Pulse Ox 95 12/15/19 16:10 Labs Result diagrams: 12/17/19 06:35 12/17/19 06:35 Labs: Laboratory Results - last 24 hr 12/15/19 12/15/19 06:05 06:05 WBC 15.34 H RBC 3.88 L Hgb 11.5 L Hct 36.2 MCV 93.3 MCH 29.6 MCHC 31.8 L RDW 13.8 Plt Count 255 MPV 10.8 Immature Gran % 0.0 Neutrophils % 73.0 Lymphocytes % 11.0 Monocytes % 14.0 Eosinophils % 2.0 Basophils % 0.0 Absolute Neutrophils 11.20 H Absolute Lymphocytes 1.69 Absolute Monocytes 2.15 H Absolute Eosinophils 0.31 Absolute Basophils 0.00 Differential Comment Manual differential RBC Morphology Normal Sodium 133 L Potassium 4.4 Chloride 103 Carbon Dioxide 18.0 L Anion Gap 12.0 H BUN 1 L Creatinine 0.56 Estimated GFR/1.73 m2 >= 60.00 Glucose 79 Calcium 7.6 L Magnesium 1.8 Total Bilirubin 2.3 H AST 13 L ALT 23 Alkaline Phosphatase 68 Total Protein 5.7 L Albumin 2.2 L Lipase 175
[2019-12-15] MEDS: Normal Saline 1,000 ML 100 ML IV (23:09)
[2019-12-16] VITALS (8 sets, daily range): BP systolic 114–137; BP diastolic 75–93; PULSE 115–133; RESP 16–18; TEMP 37.1–38.2; O2SAT 95–97
[2019-12-16] MEDS: Normal Saline Flush 10 ML SYR IVP ×6 (01:24→21:44)
[2019-12-16] MEDS: HYDROmorphone 2 MG/ML VIAL IVP ×10 (01:24→21:43)
[2019-12-16] MEDS: diphenhydrAMINE 25 MG CAP PO (01:32)
[2019-12-16 06:39] LABS: Abs Immature Grans 0.02 k/cumm (0.0-0.09); Absolute Basophil Count 0.02 k/cumm (0.0-0.2); Absolute Lymphocyte Count 1.14 k/cumm (1.2-3.4); Absolute Monocyte Count 1.44 k/cumm (0.11-0.7); Basophils % 0.2; Eosinophils % 0.9; HCT 39.3 % (36.0-46.0); HGB 12.6 g/dL (12.0-15.5); Immature Grans % 0.2 %; Lymphocytes % 10.7; Mean Corp. HGB Concentration 32.1 g/dL (32.0-36.0); Mean Corpuscular Hemoglobin 29.4 pg (27.0-33.0); Mean Corpuscular Volume 91.8 fL (80-95); Mean Platelet Volume 10.5 fL (8.0-11.0); Monocytes % 13.6; Neutrophils % 74.4; Platelet Count 294 x1000/uL (130-400); RBC 4.28 m/cumm (4.00-5.20); RBC Distribution Width 13.6 % (11.7-14.6); White Blood Cell Count 10.62 k/cumm (4.4-10.8)
[2019-12-16 06:49] LABS: ALT 30 U/L (14-59); AST 26 U/L (15-37); Albumin 2.3 g/dL (3.4-5.0); Alkaline Phosphatase 75 U/L (46-116); BUN 1 mg/dL (7-18); Bilirubin, Total 4.1 mg/dL (0.2-1.0); CREATININE 0.56 mg/dL (0.55-1.02); Calcium 7.9 mg/dL (8.5-10.1); Chloride 103 mmol/L (98-107); Glucose 81 mg/dL (74-106); Magnesium 1.7 mg/dL (1.8-2.4); Potassium 3.6 mmol/L (3.5-5.1); Sodium 137 mmol/L (136-145); Total Protein 6.3 g/dL (6.4-8.2)
[2019-12-16] MEDS: Pantoprazole 40 MG VIAL IVP (08:10)
[2019-12-16] MEDS: Docusate Sodium 100 MG CAP PO ×2 (08:10→19:36)
[2019-12-16] MEDS: Normal Saline 1,000 ML 100 ML IV ×2 (08:19→19:58)
[2019-12-16] MEDS: Acetaminophen 325 MG TAB PO ×2 (11:08→21:45)
[2019-12-16] MEDS: MAGNESIUM SULFATE 1 GM/100 ML BAG IVPB (11:16)
--- NOTE | 2019-12-16 13:21 | CMPROGNOTE_ITS ---
- If Service Date Differs Date of service: 12/16/19 Time of Service: 13:21 Care Management Progress Note S/O: Joyce was sitting up in bed when CM met with her. She was much more receptive to talking and shared that she feels better than when she was first admitted, but is still having pain. Joyce volunteered that she is being [place] [facility] [place]. 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 Nan met with Joyce shortly thereafter. Joyce was offered and accepted a coloring book and crayons to help occupy her time. A: Joyce is a 24 year old female admitted to [facility] on 12/13/2019 with acute pancreatitis. P: Anticipate Joyce will return home with no additional services when medically cleared. She will follow up with her PCP and specialists as recommended. She will transport home via private vehicle with family. CM will continue to follow and support discharge planning considerations.
--- NOTE | 2019-12-16 13:26 | TELEFU_ITS ---
Date of service: 12/16/19 Time of Service: 13:26 Nutritional Follow up NOTE: Met with Joyce today. On clear liquids, will provide ensure clear for additional protein intake. To be transfered to [facility] tomorrow. NPO order noted for breakfast 12/17/19. Time Spent in Nutritional Counseling and Treatment: 5 min spent face to face
[2019-12-16] MEDS: LORazepam 1 MG TAB PO (14:05)
[2019-12-16 14:58] LABS: Procalcitonin 0.2 ng/mL
--- NOTE | 2019-12-16 16:48 | PGE_ITS ---
Date of Service Date of service: 12/16/19 Time of Service: 16:48 Assessment and Plan Assessment and plan (1) Diverticulitis of duodenum: Status: Acute (2) Pancreatic divisum: Status: Acute (3) Pancreatitis: Status: Chronic Assessment and plan: Patient is doing better from her acute pancreatitis. She has had multiple bouts of pancreatitis in the past. She has a known history of pancreatic divisum. Her labs are improving, except for her total bilirubin which appears to be increasing. I did review her scans with Dr. Guzman. Her panc ducts and biliary ducts are not dilated. So I do not have a good etiology as to why her bilirubin is elevated, unless is just simply due to edema. It does not appear that she has passed a gallstone. Patient does relate that this episode of pancreatitis is much more severe and more painful, and also includes right upper quadrant pain which is not her usual pain for pancreatitis. She is going to [facility] [place] December 17 for ERCP/endoscopic ultrasound. I did review her studies today and she does have significant edema and inflammatory reaction in within the pancreas. Hopefully they will be able to form to do the exam and have good visualization. Again this is a pt who is had multiple episodes of pancreatitis. And I would highly recommend and hopefully, GI at [facility] [place] [facility] agrees to do a sphincterotomy for her, as long as this is technically feasible. I understand that this may not be feasible due to the inflammation. But if it was possible I would recommend that she have this done further. We did discuss the procedure today what it would entail and risks versus benefits. And that it may exacerbate her pancreatitis for a few days. Patient is very anxious about the procedure and concerned. She is also concerned that she may not be able to indicate her needs to GI tomorrow. Hopefully this medicine will accompany her tomorrow. Transfer paperwork and orders are completed today. 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 She is normally very active and busy person. She feels the attacks of pancreatitis are becoming more frequent and more severe. And feels like it is really impacting her health and quality. 20 minutes is spent with the patient today in follow-up. Greater than 50% of the time spent in counseling Qualifiers: Chronicity: acute Pancreatitis type: idiopathic Acute pancreatitis complication: unspecified Qualified Code(s): K85.00 - Idiopathic acute pancreatitis without necrosis or infection (4) Anxiety about health: Status: Acute Subjective Subjective Interval history since last seen: pt is doing ok. She is still having significant pain from her pancreatitis. She has had problems w/ pancreatitis since she was a small child. She has an episode at least once a year. She has had multiple bouts of pancreatitis This is the worst episode she has had in a while. still still has signif pain and nausea. Her pain is middle and radiates into back. But, she also has RUQ pain as well. + nausea. She is tolerating sips of clear. She did have a formed BM today. No bleeding or loose stools. No headaches. No CP or SOB. no productive cough. no dysuria. no leg pain or swelling. She has occasional difficulty swallowing. She has no dysuria. She does have her period. Her labs have come back down to nl-but her t.b il is elevated today at 4.0 Exam Narrative Exam Narrative: She was recently medicated for pain. She is somewhat groggy but her thoughts are still clear and she is able to give concise answers. They are just slow in coming. Const General: cooperative, healthy appearing, comfortable, no acute distress, well developed and well groomed Nutritional Appearance: average body habitus and well nourished Orientation: alert, awake and oriented x3 HENMT Head: normal to inspection, normocephalic and atraumatic Ears: hearing grossly normal bilaterally and external ears normal General nose exam: external nose normal Face and sinus: normal facial exam and sinuses nontender Mouth: oral mucosae normal, lip normal, tongue normal and moist mucous membranes Teeth and gingiva: dentition normal Eyes General: appearance normal, both eyes and all related structures Conjunctivae: conjunctivae normal Sclera: sclerae normal Pupils: PERRL Neck Neck: normal visual inspection and full ROM Chest Chest: normal inspection of the chest Resp Effort & Inspection: normal respiratory effort, able to speak in complete sentences, no cough, no nasal flaring, not tachypneic and no use of accessory muscles Auscultation: clear to auscultation bilaterally, no rales, no rhonchi and no wheezes Cardio Jugular venous pressure: no JVD Rate: regular rate Rhythm: regular rhythm GI Inspection: normal to inspection, no edema and distended (mild) Palpation: soft, no masses, tender (no diffuse peritonitis) in the RUQ, periumbilically and with rebound tenderness and No ascites Auscultation: normal bowel sounds Skin General skin exam: no rashes or lesions noted Trauma: no lacerations or abrasions Neuro General: alert, oriented x3, oriented, gait normal, moves all extremities, no focal motor deficits and CN's II-XI intact bilaterally Cognition: normal cognition Speech: speech normal Gait: normal gait Motor: muscle tone normal throughout Extrem General: normal to inspection, full ROM and no clubbing, cyanosis or edema Psych Appearance: grossly normal and well kempt Mental Status: mental status grossly normal Speech and Movement: speech and movement normal Affect: normal affect Objective Objective Clinical Data: Abnormal lab results 12/16/19 12/16/19 Range/Units 06:20 06:20 Absolute Neutrophils 7.90 H (1.2-6.7) k/cumm Absolute Lymphocytes 1.14 L (1.2-3.4) k/cumm Absolute Monocytes 1.44 H (0.11-0.7) k/cumm Anion Gap 12.0 H (3-11) mmol/L BUN 1 L (7-18) mg/dL Calcium 7.9 L (8.5-10.1) mg/dL Magnesium 1.7 L (1.8-2.4) mg/dL Total Bilirubin 4.1 H (0.2-1.0) mg/dL C-Reactive Protein 22.00 H (0.0-0.3) mg/dL Total Protein 6.3 L (6.4-8.2) g/dL Albumin 2.3 L (3.4-5.0) g/dL Vital Signs Temperature 37.1 C 12/16/19 15:12 Temperature Source Tympanic 12/16/19 15:12 Pulse 115 H 12/16/19 15:12 Pulse Rhythm Regular 12/16/19 10:53 Pulse Strength Normal 12/13/19 17:30 Respiratory Rate 18 12/16/19 15:12 Respiratory Effort 12/16/19 10:53 Respiratory Depth Normal 12/16/19 10:53 Respiratory Pattern Normal 12/16/19 10:53 Blood Pressure 129/84 12/16/19 15:12 Blood Pressure Mean 90 12/13/19 17:30 Blood Pressure Position Right Lateral 12/13/19 17:30 Pulse Oximetry 96 12/16/19 15:12 Oxygen Delivery Method Room Air 12/16/19 15:12 Oxygen Flow Rate 0 12/16/19 15:12 Pain Level 0 12/16/19 15:12 Comment 12/16/19 11:05 Intake & Output 12/15/19 12/16/19 12/16/19 23:59 11:59 23:59 Intake Total 3088.334 / 5171.667 1016.667 / 1016.667 Output Total 1999 Balance 1088.334 / 1321.667 -1083.333 / -1083.333 Weight 72.1 kg Intake: IV 2288.334 / 4371.667 1016.667 / 1016.667 Oral 800 / 800 Output: Urine 1999 Other: Urine Color Yellow Straw [place] Urine Appearance Hematuria Clear Urine Odor None Comment pt menstrating. Stool Size Moderate Small Stool Characteristics Soft Brown Voiding Methods Toilet Toilet Laboratory Results WBC 10.62 k/cumm (4.4-10.8) D 12/16/19 06:20 RBC 4.28 m/cumm (4.00-5.20) 12/16/19 06:20 Hgb 12.6 g/dL (12.0-15.5) 12/16/19 06:20 Hct 39.3 % (36.0-46.0) 12/16/19 06:20 MCV 91.8 fL (80-95) 12/16/19 06:20 MCH 29.4 pg (27.0-33.0) 12/16/19 06:20 MCHC 32.1 g/dL (32.0-36.0) 12/16/19 06:20 RDW 13.6 % (11.7-14.6) 12/16/19 06:20 Plt Count 294 x1000/uL (130-400) 12/16/19 06:20 MPV 10.5 fL (8.0-11.0) 12/16/19 06:20 Immature Gran % 0.2 % 12/16/19 06:20 Neutrophils % 74.4 12/16/19 06:20 Band Neutrophils % 2.0 % 12/14/19 16:19 Lymphocytes % 10.7 12/16/19 06:20 Atypical Lymphs % 2 12/14/19 16:19 Monocytes % 13.6 12/16/19 06:20 Eosinophils % 0.9 12/16/19 06:20 Basophils % 0.2 12/16/19 06:20 Absolute Neutrophils 7.90 k/cumm (1.2-6.7) H 12/16/19 06:20 Absolute Lymphocytes 1.14 k/cumm (1.2-3.4) L 12/16/19 06:20 Absolute Monocytes 1.44 k/cumm (0.11-0.7) H 12/16/19 06:20 Absolute Eosinophils 0.10 k/cumm (0.0-0.7) 12/16/19 06:20 Absolute Basophils 0.02 k/cumm (0.0-0.2) 12/16/19 06:20 Differential Comment Manual differential 12/15/19 06:05 RBC Morphology Normal 12/15/19 06:05 ESR 15 mm/hr (0-20) 12/14/19 16:19 Sodium 137 mmol/L (136-145) 12/16/19 06:20 Potassium 3.6 mmol/L (3.5-5.1) 12/16/19 06:20 Chloride 103 mmol/L (98-107) 12/16/19 06:20 Carbon Dioxide 22.0 mmol/L (21.0-32.0) 12/16/19 06:20 Anion Gap 12.0 mmol/L (3-11) H 12/16/19 06:20 BUN 1 mg/dL (7-18) L 12/16/19 06:20 Creatinine 0.56 mg/dL (0.55-1.02) 12/16/19 06:20 Estimated GFR/1.73 m2 >= 60.00 (mL/min/1.73m2) 12/16/19 06:20 Glucose 81 mg/dL (74-106) 12/16/19 06:20 Lactate 0.8 mmol/L (0.6-1.4) 12/14/19 16:19 Calcium 7.9 mg/dL (8.5-10.1) L 12/16/19 06:20 Magnesium 1.7 mg/dL (1.8-2.4) L 12/16/19 06:20 Total Bilirubin 4.1 mg/dL (0.2-1.0) H 12/16/19 06:20 Conjugated Bilirubin 1.18 mg/dL (0.00-0.20) H 12/14/19 16:19 AST 26 U/L (15-37) 12/16/19 06:20 ALT 30 U/L (14-59) 12/16/19 06:20 Alkaline Phosphatase 75 U/L (46-116) 12/16/19 06:20 C-Reactive Protein 22.00 mg/dL (0.0-0.3) H 12/16/19 06:20 Total Protein 6.3 g/dL (6.4-8.2) L 12/16/19 06:20 Albumin 2.3 g/dL (3.4-5.0) L 12/16/19 06:20 Triglycerides 43 mg/dL (<150) 12/13/19 14:45 Total Cholesterol 173 mg/dL (<200) 12/13/19 14:45 LDL Cholesterol, Calc 72 mg/dL 12/13/19 14:45 HDL Cholesterol 93 mg/dL (40-60) 12/13/19 14:45 Lipase 175 U/L (73-393) 12/15/19 06:05 Procalcitonin 0.2 ng/mL 12/16/19 06:20 Urine Color Yellow (Yellow) 12/13/19 15:55 Urine Clarity Clear (Clear) 12/13/19 15:55 Urine pH 7.0 (5-8) 12/13/19 15:55 Ur Specific [place] 1.025 (1.005-1.025) 12/13/19 15:55 Urine Protein Negative mg/dL (Negative) 12/13/19 15:55 Urine Ketones 40 mg/dL (Negative) H 12/13/19 15:55 Urine Blood Negative (Negative) 12/13/19 15:55 Urine Nitrite Negative (Negative) 12/13/19 15:55 Urine Bilirubin Small (Negative) H 12/13/19 15:55 Urine Urobilinogen 2.0 EU/dL (Up TO 0.2) H 12/13/19 15:55 Ur Leukocyte Esterase Negative (Negative) 12/13/19 15:55 Urine Glucose Negative mg/dL (Negative) 12/13/19 15:55
--- NOTE | 2019-12-16 17:30 | W.PM.PROGNOT ---
Date of Service Date of service: 12/16/19 Time of Service: 17:30 Assessment and Plan Assessment and plan (1) Pancreatic duct leak: Status: Acute Assessment and plan: I spoke with Dr. [place], [facility] [place] fellow. She said they received the abdominal MRI and reviewed it and feel that the diagnosis of duodenal diverticulitis is incorrect. They feel that this is a minor duct leak with cyst formation around the leak. I expressed my concern about the rising bilirubin level and the concern for cholestasis. She consulted with Dr. Hayes and called back with a plan to bring her down to [facility] tomorrow for an endoscopic ultrasound and ERCP procedure. Patient will be n.p.o. after midnight. Continue the ertapenem, continue IV fluids, continue clear liquids until midnight. Repeat CMP, CBC D in the a.m. Will prescribe lorazepam for what appears to be rather extreme anxiety which is causing some of the tachycardia. Continue the Dilaudid for pain control. Subjective Subjective Interval history since last seen: She continues to have severe abdominal pain. She is now having some difficulty breathing because it hurts to take a deep breath. Her heart rate remains elevated. She did have 2 bowel movements that were normal. She is tolerating clear liquids but has no appetite for solid foods. She spiked a fever last night around 11 PM. Exam Narrative Exam Narrative: She appears in moderate distress. She appears to be quite anxious. She does not appear overtly jaundiced. Her respirations appeared more shallow and a little more rapid today. Her heart is racing at a rate of around 120. There is no murmur. Her lungs are clear bilaterally. Her abdomen is diffusely tender to palpation. Again more so in the right upper quadrant and epigastric region. It is not rigid. It does not appear to be an acute abdomen. Objective Objective Clinical Data: Abnormal lab results 12/16/19 12/16/19 Range/Units 06:20 06:20 Absolute Neutrophils 7.90 H (1.2-6.7) k/cumm Absolute Lymphocytes 1.14 L (1.2-3.4) k/cumm Absolute Monocytes 1.44 H (0.11-0.7) k/cumm Anion Gap 12.0 H (3-11) mmol/L BUN 1 L (7-18) mg/dL Calcium 7.9 L (8.5-10.1) mg/dL Magnesium 1.7 L (1.8-2.4) mg/dL Total Bilirubin 4.1 H (0.2-1.0) mg/dL C-Reactive Protein 22.00 H (0.0-0.3) mg/dL Total Protein 6.3 L (6.4-8.2) g/dL Albumin 2.3 L (3.4-5.0) g/dL Vital Signs Temperature 37.1 C 12/16/19 15:12 Temperature Source Tympanic 12/16/19 15:12 Pulse 115 H 12/16/19 15:12 Pulse Rhythm Regular 12/16/19 10:53 Pulse Strength Normal 12/13/19 17:30 Respiratory Rate 18 12/16/19 15:12 Respiratory Effort 12/16/19 10:53 Respiratory Depth Normal 12/16/19 10:53 Respiratory Pattern Normal 12/16/19 10:53 Blood Pressure 129/84 12/16/19 15:12 Blood Pressure Mean 90 12/13/19 17:30 Blood Pressure Position Right Lateral 12/13/19 17:30 Pulse Oximetry 96 12/16/19 15:12 Oxygen Delivery Method Room Air 12/16/19 15:12 Oxygen Flow Rate 0 12/16/19 15:12 Pain Level 5 12/16/19 17:14 Comment 12/16/19 11:05 Intake & Output 12/15/19 12/16/19 12/16/19 23:59 11:59 23:59 Intake Total 3088.334 / 5171.667 1016.667 / 1016.667 Output Total 1999 Balance 1088.334 / 1321.667 -1083.333 / -1083.333 Weight 72.1 kg Intake: IV 2288.334 / 4371.667 1016.667 / 1016.667 Oral 800 / 800 Output: Urine 1999 Other: Urine Color Yellow Straw [employer] Urine Appearance Hematuria Clear Urine Odor None Comment pt menstrating. Stool Size Moderate Small Stool Characteristics Soft Brown Voiding Methods Toilet Toilet Laboratory Results WBC 10.62 k/cumm (4.4-10.8) D 12/16/19 06:20 RBC 4.28 m/cumm (4.00-5.20) 12/16/19 06:20 Hgb 12.6 g/dL (12.0-15.5) 12/16/19 06:20 Hct 39.3 % (36.0-46.0) 12/16/19 06:20 MCV 91.8 fL (80-95) 12/16/19 06:20 MCH 29.4 pg (27.0-33.0) 12/16/19 06:20 MCHC 32.1 g/dL (32.0-36.0) 12/16/19 06:20 RDW 13.6 % (11.7-14.6) 12/16/19 06:20 Plt Count 294 x1000/uL (130-400) 12/16/19 06:20 MPV 10.5 fL (8.0-11.0) 12/16/19 06:20 Immature Gran % 0.2 % 12/16/19 06:20 Neutrophils % 74.4 12/16/19 06:20 Band Neutrophils % 2.0 % 12/14/19 16:19 Lymphocytes % 10.7 12/16/19 06:20 Atypical Lymphs % 2 12/14/19 16:19 Monocytes % 13.6 12/16/19 06:20 Eosinophils % 0.9 12/16/19 06:20 Basophils % 0.2 12/16/19 06:20 Absolute Neutrophils 7.90 k/cumm (1.2-6.7) H 12/16/19 06:20 Absolute Lymphocytes 1.14 k/cumm (1.2-3.4) L 12/16/19 06:20 Absolute Monocytes 1.44 k/cumm (0.11-0.7) H 12/16/19 06:20 Absolute Eosinophils 0.10 k/cumm (0.0-0.7) 12/16/19 06:20 Absolute Basophils 0.02 k/cumm (0.0-0.2) 12/16/19 06:20 Differential Comment Manual differential 12/15/19 06:05 RBC Morphology Normal 12/15/19 06:05 ESR 15 mm/hr (0-20) 12/14/19 16:19 Sodium 137 mmol/L (136-145) 12/16/19 06:20 Potassium 3.6 mmol/L (3.5-5.1) 12/16/19 06:20 Chloride 103 mmol/L (98-107) 12/16/19 06:20 Carbon Dioxide 22.0 mmol/L (21.0-32.0) 12/16/19 06:20 Anion Gap 12.0 mmol/L (3-11) H 12/16/19 06:20 BUN 1 mg/dL (7-18) L 12/16/19 06:20 Creatinine 0.56 mg/dL (0.55-1.02) 12/16/19 06:20 Estimated GFR/1.73 m2 >= 60.00 (mL/min/1.73m2) 12/16/19 06:20 Glucose 81 mg/dL (74-106) 12/16/19 06:20 Lactate 0.8 mmol/L (0.6-1.4) 12/14/19 16:19 Calcium 7.9 mg/dL (8.5-10.1) L 12/16/19 06:20 Magnesium 1.7 mg/dL (1.8-2.4) L 12/16/19 06:20 Total Bilirubin 4.1 mg/dL (0.2-1.0) H 12/16/19 06:20 Conjugated Bilirubin 1.18 mg/dL (0.00-0.20) H 12/14/19 16:19 AST 26 U/L (15-37) 12/16/19 06:20 ALT 30 U/L (14-59) 12/16/19 06:20 Alkaline Phosphatase 75 U/L (46-116) 12/16/19 06:20 C-Reactive Protein 22.00 mg/dL (0.0-0.3) H 12/16/19 06:20 Total Protein 6.3 g/dL (6.4-8.2) L 12/16/19 06:20 Albumin 2.3 g/dL (3.4-5.0) L 12/16/19 06:20 Triglycerides 43 mg/dL (<150) 12/13/19 14:45 Total Cholesterol 173 mg/dL (<200) 12/13/19 14:45 LDL Cholesterol, Calc 72 mg/dL 12/13/19 14:45 HDL Cholesterol 93 mg/dL (40-60) 12/13/19 14:45 Lipase 175 U/L (73-393) 12/15/19 06:05 Procalcitonin 0.2 ng/mL 12/16/19 06:20 Urine Color Yellow (Yellow) 12/13/19 15:55 Urine Clarity Clear (Clear) 12/13/19 15:55 Urine pH 7.0 (5-8) 12/13/19 15:55 Ur Specific [place] 1.025 (1.005-1.025) 12/13/19 15:55 Urine Protein Negative mg/dL (Negative) 12/13/19 15:55 Urine Ketones 40 mg/dL (Negative) H 12/13/19 15:55 Urine Blood Negative (Negative) 12/13/19 15:55 Urine Nitrite Negative (Negative) 12/13/19 15:55 Urine Bilirubin Small (Negative) H 12/13/19 15:55 Urine Urobilinogen 2.0 EU/dL (Up TO 0.2) H 12/13/19 15:55 Ur Leukocyte Esterase Negative (Negative) 12/13/19 15:55 Urine Glucose Negative mg/dL (Negative) 12/13/19 15:55
[2019-12-17] MEDS: HYDROmorphone 2 MG/ML VIAL IVP ×6 (00:07→22:38)
[2019-12-17] MEDS: Normal Saline Flush 10 ML SYR IVP ×5 (00:08→22:38)
[2019-12-17 03:40] VITALS: BP 121/83; PULSE 106; RESP 17; TEMP 37.2; O2SAT 98
[2019-12-17] MEDS: Normal Saline 1,000 ML 100 ML IV ×2 (06:02→08:27)
[2019-12-17 07:26] LABS: Abs Immature Grans 0.03 k/cumm (0.0-0.09); Absolute Basophil Count 0.03 k/cumm (0.0-0.2); Absolute Eosinophil Count 0.13 k/cumm (0.0-0.7); Absolute Lymphocyte Count 1.27 k/cumm (1.2-3.4); Absolute Monocyte Count 1.99 k/cumm (0.11-0.7); Basophils % 0.3; Eosinophils % 1.3; HCT 36.5 % (36.0-46.0); HGB 11.8 g/dL (12.0-15.5); Immature Grans % 0.3 %; Lymphocytes % 12.4; Mean Corp. HGB Concentration 32.3 g/dL (32.0-36.0); Mean Corpuscular Hemoglobin 29.1 pg (27.0-33.0); Mean Corpuscular Volume 90.1 fL (80-95); Mean Platelet Volume 10.5 fL (8.0-11.0); Monocytes % 19.4; Neutrophils % 66.3; Platelet Count 306 x1000/uL (130-400); RBC 4.05 m/cumm (4.00-5.20); RBC Distribution Width 13.4 % (11.7-14.6); White Blood Cell Count 10.25 k/cumm (4.4-10.8)
[2019-12-17 07:32] VITALS: BP 120/79; PULSE 111; RESP 18; TEMP 38.1; O2SAT 96
[2019-12-17 07:41] LABS: ALT 33 U/L (14-59); AST 29 U/L (15-37); Albumin 2.1 g/dL (3.4-5.0); Alkaline Phosphatase 87 U/L (46-116); Anion Gap 12.9 mmol/L (3-11); BUN 1 mg/dL (7-18); Bilirubin, Total 3.6 mg/dL (0.2-1.0); CO2 23.1 mmol/L (21.0-32.0); CREATININE 0.47 mg/dL (0.55-1.02); Calcium 7.9 mg/dL (8.5-10.1); Chloride 103 mmol/L (98-107); Glucose 96 mg/dL (74-106); Potassium 3.6 mmol/L (3.5-5.1); Sodium 139 mmol/L (136-145); Total Protein 5.9 g/dL (6.4-8.2)
[2019-12-17 07:48] LABS: Diff Comment Agrees w/ Instrument; RBC Morphology Normal
[2019-12-17] MEDS: Pantoprazole 40 MG VIAL IVP (07:50)
[2019-12-17 08:27] VITALS: TEMP 38.1
[2019-12-17] MEDS: Acetaminophen 325 MG TAB PO (08:27)
[2019-12-17] MEDS: LORazepam 1 MG TAB PO (09:34)
[2019-12-17] MEDS: HYDROmorphone 2 MG/ML VIAL 1 MG IVP (09:34)
[2019-12-17 09:39] LABS: Prothrombin Time 10.1 sec (9.3-11.0)
--- NOTE | 2019-12-17 10:04 | CHAPLAIN ---
Joyce was sitting up in bed when I visited yesterday. She told me that she is going today for an ERCP at [facility] and explained that there is an 85% chance that the procedure will take care of her problem and prevent it from happening again and eliminate the pain. There is also the possibility that she will be dealing with the pain chronically. Joyce's mom or grandmother are usually with. She asked to redo her advance directive and we did that. She also asked about the police for people to stay over in the room with her as her boyfriend is traveling from [place] and would like to spend the night. I suggested she check with Care Management. 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.
--- NOTE | 2019-12-17 16:41 | CMPROGNOTE_ITS ---
- If Service Date Differs Date of service: 12/17/19 Time of Service: 16:41 Care Management Progress Note S/O: Joyce was preparing to go [place] [facility] [place] when CM met with her. She stated that she was feeling better but that she was nervous about the procedure. She was scheduled to leave at 10 am and will be gone for several hours. A: Joyce is a 24 year old female admitted to [facility] on 12/13/2019 with acute pancreatitis. P: Anticipate Joyce will return home with no additional services when medically cleared. She will follow up with her PCP and specialists as recommended. She will transport home via private vehicle with family. CM will continue to follow and support discharge planning considerations.
[2019-12-17 18:20] VITALS: BP 120/81; PULSE 96; RESP 18; TEMP 37; O2SAT 99
--- NOTE | 2019-12-17 18:47 | PGE_ITS ---
Date of Service Date of service: 12/17/19 Time of Service: 18:47 Assessment and Plan Assessment and plan (1) Diverticulitis of duodenum: Status: Acute Assessment and plan: After the EUS the diagnosis of diverticulitis of the duodenum is confirmed. They saw a large collection of biliary sludge and material in the diverticulum and were able to clean some of that out. They r ecommended continuing with the ertapenem. They did have a surgical consult during the procedure and will likely need her to follow-up at some point with general surgery. (2) Pancreatitis: Status: Chronic Assessment and plan: The EUS confirmed diffuse pancreatitis and inflammation. Continue relative bowel rest, IV fluids, parenteral pain medication. Qualifiers: Chronicity: acute Pancreatitis type: idiopathic Acute pancreatitis complication: unspecified Qualified Code(s): K85.00 - Idiopathic acute pancreatitis without necrosis or infection (3) Pancreatic divisum: Status: Acute Assessment and plan: The pancreatic divisum is fairly small and does not appear to be causing a lot of these problems. She did have a stent placed in the pancreatic duct. Subjective Subjective Interval history since last seen: Patient was at [facility] gastroenterology most of the day today getting E US/ERCP. This evening she has quite a bit of abdominal tenderness but is thirsty and would like to resume clear liquid diet. She is still having some nausea. Exam Narrative Exam Narrative: On exam she still diffusely tender across her abdomen. Does not appear jaundiced. Objective Objective Clinical Data: Abnormal lab results 12/17/19 12/17/19 Range/Units 06:35 06:35 Hgb 11.8 L (12.0-15.5) g/dL Absolute Neutrophils 6.80 H (1.2-6.7) k/cumm Absolute Monocytes 1.99 H (0.11-0.7) k/cumm Anion Gap 12.9 H (3-11) mmol/L BUN 1 L (7-18) mg/dL Creatinine 0.47 L (0.55-1.02) mg/dL Calcium 7.9 L (8.5-10.1) mg/dL Total Bilirubin 3.6 H (0.2-1.0) mg/dL Total Protein 5.9 L (6.4-8.2) g/dL Albumin 2.1 L (3.4-5.0) g/dL Vital Signs Temperature 38.1 C H 12/17/19 08:27 Temperature Source Tympanic 12/17/19 07:32 Pulse 111 H 12/17/19 07:32 Pulse Rhythm Regular 12/17/19 18:36 Pulse Strength Normal 12/13/19 17:30 Respiratory Rate 18 12/17/19 07:32 Respiratory Effort Non-Labored 12/17/19 18:36 Respiratory Depth Normal 12/17/19 18:36 Respiratory Pattern Normal 12/17/19 18:36 Blood Pressure 120/79 12/17/19 07:32 Blood Pressure Mean 90 12/13/19 17:30 Blood Pressure Position Right Lateral 12/13/19 17:30 Pulse Oximetry 96 12/17/19 07:32 Oxygen Delivery Method Room Air 12/17/19 07:32 Oxygen Flow Rate 0 12/17/19 07:32 Pain Level 3 12/17/19 07:50 Comment 12/17/19 07:32 Intake & Output 12/16/19 12/17/19 12/17/19 23:59 11:59 23:59 Intake Total 1680 / 2696.667 1341.667 / 1341.667 Balance 1680 / 658.833 4729.667 / 1341.667 Weight 72.8 kg Intake: IV 1110 / 2126.667 1341.667 / 1341.667 Oral 570 / 570 Other: Urine Color Pale Urine Appearance Clear Clear Clear Urine Odor None Comment voids in toilet. Voiding Methods Toilet Toilet Toilet Laboratory Results WBC 10.25 k/cumm (4.4-10.8) 12/17/19 06:35 RBC 4.05 m/cumm (4.00-5.20) 12/17/19 06:35 Hgb 11.8 g/dL (12.0-15.5) L 12/17/19 06:35 Hct 36.5 % (36.0-46.0) 12/17/19 06:35 MCV 90.1 fL (80-95) 12/17/19 06:35 MCH 29.1 pg (27.0-33.0) 12/17/19 06:35 MCHC 32.3 g/dL (32.0-36.0) 12/17/19 06:35 RDW 13.4 % (11.7-14.6) 12/17/19 06:35 Plt Count 306 x1000/uL (130-400) 12/17/19 06:35 MPV 10.5 fL (8.0-11.0) 12/17/19 06:35 Immature Gran % 0.3 % 12/17/19 06:35 Neutrophils % 66.3 12/17/19 06:35 Band Neutrophils % 2.0 % 12/14/19 16:19 Lymphocytes % 12.4 12/17/19 06:35 Atypical Lymphs % 2 12/14/19 16:19 Monocytes % 19.4 12/17/19 06:35 Eosinophils % 1.3 12/17/19 06:35 Basophils % 0.3 12/17/19 06:35 Absolute Neutrophils 6.80 k/cumm (1.2-6.7) H 12/17/19 06:35 Absolute Lymphocytes 1.27 k/cumm (1.2-3.4) 12/17/19 06:35 Absolute Monocytes 1.99 k/cumm (0.11-0.7) H 12/17/19 06:35 Absolute Eosinophils 0.13 k/cumm (0.0-0.7) 12/17/19 06:35 Absolute Basophils 0.03 k/cumm (0.0-0.2) 12/17/19 06:35 Differential Comment Agrees w/ instrument 12/17/19 06:35 RBC Morphology Normal 12/17/19 06:35 ESR 15 mm/hr (0-20) 12/14/19 16:19 PT 10.1 sec (9.3-11.0) 12/17/19 09:15 INR 1.0 (0.9-1.1) 12/17/19 09:15 Sodium 139 mmol/L (136-145) 12/17/19 06:35 Potassium 3.6 mmol/L (3.5-5.1) 12/17/19 06:35 Chloride 103 mmol/L (98-107) 12/17/19 06:35 Carbon Dioxide 23.1 mmol/L (21.0-32.0) 12/17/19 06:35 Anion Gap 12.9 mmol/L (3-11) H 12/17/19 06:35 BUN 1 mg/dL (7-18) L 12/17/19 06:35 Creatinine 0.47 mg/dL (0.55-1.02) L 12/17/19 06:35 Estimated GFR/1.73 m2 >= 60.00 (mL/min/1.73m2) 12/17/19 06:35 Glucose 96 mg/dL (74-106) 12/17/19 06:35 Lactate 0.8 mmol/L (0.6-1.4) 12/14/19 16:19 Calcium 7.9 mg/dL (8.5-10.1) L 12/17/19 06:35 Magnesium 1.7 mg/dL (1.8-2.4) L 12/16/19 06:20 Total Bilirubin 3.6 mg/dL (0.2-1.0) H 12/17/19 06:35 Conjugated Bilirubin 1.18 mg/dL (0.00-0.20) H 12/14/19 16:19 AST 29 U/L (15-37) 12/17/19 06:35 ALT 33 U/L (14-59) 12/17/19 06:35 Alkaline Phosphatase 87 U/L (46-116) 12/17/19 06:35 C-Reactive Protein 22.00 mg/dL (0.0-0.3) H 12/16/19 06:20 Total Protein 5.9 g/dL (6.4-8.2) L 12/17/19 06:35 Albumin 2.1 g/dL (3.4-5.0) L 12/17/19 06:35 Triglycerides 43 mg/dL (<150) 12/13/19 14:45 Total Cholesterol 173 mg/dL (<200) 12/13/19 14:45 LDL Cholesterol, Calc 72 mg/dL 12/13/19 14:45 HDL Cholesterol 93 mg/dL (40-60) 12/13/19 14:45 Lipase 175 U/L (73-393) 12/15/19 06:05 Procalcitonin 0.2 ng/mL 12/16/19 06:20 Urine Color Yellow (Yellow) 12/13/19 15:55 Urine Clarity Clear (Clear) 12/13/19 15:55 Urine pH 7.0 (5-8) 12/13/19 15:55 Ur Specific [place] 1.025 (1.005-1.025) 12/13/19 15:55 Urine Protein Negative mg/dL (Negative) 12/13/19 15:55 Urine Ketones 40 mg/dL (Negative) H 12/13/19 15:55 Urine Blood Negative (Negative) 12/13/19 15:55 Urine Nitrite Negative (Negative) 12/13/19 15:55 Urine Bilirubin Small (Negative) H 12/13/19 15:55 Urine Urobilinogen 2.0 EU/dL (Up TO 0.2) H 12/13/19 15:55 Ur Leukocyte Esterase Negative (Negative) 12/13/19 15:55 Urine Glucose Negative mg/dL (Negative) 12/13/19 15:55
[2019-12-17] MEDS: Docusate Sodium 100 MG CAP PO (19:51)
--- NOTE | 2019-12-17 22:02 | W.PM.PROGNOT ---
Date of Service Date of service: 12/17/19 Time of Service: 09:02 Assessment and Plan Assessment and plan (1) Diverticulum of duodenum: Status: Acute (2) Diverticulum of duodenum with complication: Status: Acute (3) Diverticulitis of duodenum: Status: Acute Subjective Subjective Interval history since last seen: pt doing ok. No changes in last 24hrs. still having pain. No test. no cp, SOB, productive cough, dysuria or yeast. no calf pain or swelling labs reviewed. T kiara is down. Will check INR. stable for transfer to [facility] for procedure today. Objective Objective Clinical Data: Abnormal lab results 12/17/19 12/17/19 Range/Units 06:35 06:35 Hgb 11.8 L (12.0-15.5) g/dL Absolute Neutrophils 6.80 H (1.2-6.7) k/cumm Absolute Monocytes 1.99 H (0.11-0.7) k/cumm Anion Gap 12.9 H (3-11) mmol/L BUN 1 L (7-18) mg/dL Creatinine 0.47 L (0.55-1.02) mg/dL Calcium 7.9 L (8.5-10.1) mg/dL Total Bilirubin 3.6 H (0.2-1.0) mg/dL Total Protein 5.9 L (6.4-8.2) g/dL Albumin 2.1 L (3.4-5.0) g/dL Vital Signs Temperature 37.0 C 12/17/19 18:20 Temperature Source Tympanic 12/17/19 18:20 Pulse 96 H 12/17/19 18:20 Pulse Rhythm Regular 12/17/19 18:36 Pulse Strength Normal 12/13/19 17:30 Respiratory Rate 18 12/17/19 18:20 Respiratory Effort Non-Labored 12/17/19 18:36 Respiratory Depth Normal 12/17/19 18:36 Respiratory Pattern Normal 12/17/19 18:36 Blood Pressure 120/81 12/17/19 18:20 Blood Pressure Mean 90 12/13/19 17:30 Blood Pressure Position Right Lateral 12/13/19 17:30 Pulse Oximetry 99 12/17/19 18:20 Oxygen Delivery Method Room Air 12/17/19 18:20 Oxygen Flow Rate 0 01/30/20 18:20 Pain Level 4 12/17/19 19:50 Comment 12/17/19 07:32 Intake & Output 12/16/19 12/17/19 12/17/19 23:59 11:59 23:59 Intake Total 1680 / 2696.667 1341.667 / 1341.667 Balance 1680 / 259.361 6568.667 / 1341.667 Weight 72.8 kg Intake: IV 1110 / 2126.667 1341.667 / 1341.667 Oral 570 / 570 Other: Urine Color Pale Urine Appearance Clear Clear Clear Urine Odor None Comment voids in toilet. Voiding Methods Toilet Toilet Toilet Laboratory Results WBC 10.25 k/cumm (4.4-10.8) 12/17/19 06:35 RBC 4.05 m/cumm (4.00-5.20) 12/17/19 06:35 Hgb 11.8 g/dL (12.0-15.5) L 12/17/19 06:35 Hct 36.5 % (36.0-46.0) 12/17/19 06:35 MCV 90.1 fL (80-95) 12/17/19 06:35 MCH 29.1 pg (27.0-33.0) 12/17/19 06:35 MCHC 32.3 g/dL (32.0-36.0) 12/17/19 06:35 RDW 13.4 % (11.7-14.6) 12/17/19 06:35 Plt Count 306 x1000/uL (130-400) 12/17/19 06:35 MPV 10.5 fL (8.0-11.0) 12/17/19 06:35 Immature Gran % 0.3 % 12/17/19 06:35 Neutrophils % 66.3 12/17/19 06:35 Band Neutrophils % 2.0 % 12/14/19 16:19 Lymphocytes % 12.4 12/17/19 06:35 Atypical Lymphs % 2 12/14/19 16:19 Monocytes % 19.4 12/17/19 06:35 Eosinophils % 1.3 12/17/19 06:35 Basophils % 0.3 12/17/19 06:35 Absolute Neutrophils 6.80 k/cumm (1.2-6.7) H 12/17/19 06:35 Absolute Lymphocytes 1.27 k/cumm (1.2-3.4) 12/17/19 06:35 Absolute Monocytes 1.99 k/cumm (0.11-0.7) H 12/17/19 06:35 Absolute Eosinophils 0.13 k/cumm (0.0-0.7) 12/17/19 06:35 Absolute Basophils 0.03 k/cumm (0.0-0.2) 12/17/19 06:35 Differential Comment Agrees w/ instrument 12/17/19 06:35 RBC Morphology Normal 12/17/19 06:35 ESR 15 mm/hr (0-20) 12/14/19 16:19 PT 10.1 sec (9.3-11.0) 12/17/19 09:15 INR 1.0 (0.9-1.1) 12/17/19 09:15 Sodium 139 mmol/L (136-145) 12/17/19 06:35 Potassium 3.6 mmol/L (3.5-5.1) 12/17/19 06:35 Chloride 103 mmol/L (98-107) 12/17/19 06:35 Carbon Dioxide 23.1 mmol/L (21.0-32.0) 12/17/19 06:35 Anion Gap 12.9 mmol/L (3-11) H 12/17/19 06:35 BUN 1 mg/dL (7-18) L 12/17/19 06:35 Creatinine 0.47 mg/dL (0.55-1.02) L 12/17/19 06:35 Estimated GFR/1.73 m2 >= 60.00 (mL/min/1.73m2) 12/17/19 06:35 Glucose 96 mg/dL (74-106) 12/17/19 06:35 Lactate 0.8 mmol/L (0.6-1.4) 12/14/19 16:19 Calcium 7.9 mg/dL (8.5-10.1) L 12/17/19 06:35 Magnesium 1.7 mg/dL (1.8-2.4) L 12/16/19 06:20 Total Bilirubin 3.6 mg/dL (0.2-1.0) H 12/17/19 06:35 Conjugated Bilirubin 1.18 mg/dL (0.00-0.20) H 12/14/19 16:19 AST 29 U/L (15-37) 12/17/19 06:35 ALT 33 U/L (14-59) 12/17/19 06:35 Alkaline Phosphatase 87 U/L (46-116) 12/17/19 06:35 C-Reactive Protein 22.00 mg/dL (0.0-0.3) H 12/16/19 06:20 Total Protein 5.9 g/dL (6.4-8.2) L 12/17/19 06:35 Albumin 2.1 g/dL (3.4-5.0) L 12/17/19 06:35 Triglycerides 43 mg/dL (<150) 12/13/19 14:45 Total Cholesterol 173 mg/dL (<200) 12/13/19 14:45 LDL Cholesterol, Calc 72 mg/dL 12/13/19 14:45 HDL Cholesterol 93 mg/dL (40-60) 12/13/19 14:45 Lipase 175 U/L (73-393) 12/15/19 06:05 Procalcitonin 0.2 ng/mL 12/16/19 06:20 Urine Color Yellow (Yellow) 12/13/19 15:55 Urine Clarity Clear (Clear) 12/13/19 15:55 Urine pH 7.0 (5-8) 12/13/19 15:55 Ur Specific [place] 1.025 (1.005-1.025) 12/13/19 15:55 Urine Protein Negative mg/dL (Negative) 12/13/19 15:55 Urine Ketones 40 mg/dL (Negative) H 12/13/19 15:55 Urine Blood Negative (Negative) 12/13/19 15:55 Urine Nitrite Negative (Negative) 12/13/19 15:55 Urine Bilirubin Small (Negative) H 12/13/19 15:55 Urine Urobilinogen 2.0 EU/dL (Up TO 0.2) H 12/13/19 15:55 Ur Leukocyte Esterase Negative (Negative) 12/13/19 15:55 Urine Glucose Negative mg/dL (Negative) 12/13/19 15:55
[2019-12-17] MEDS: diphenhydrAMINE 25 MG CAP PO (22:38)
[2019-12-18] VITALS (7 sets, daily range): BP systolic 113–129; BP diastolic 76–83; PULSE 92–115; RESP 15–20; TEMP 36.9–37.5; O2SAT 94–97
[2019-12-18] MEDS: HYDROmorphone 2 MG/ML VIAL IVP ×3 (02:20→22:57)
[2019-12-18] MEDS: Normal Saline Flush 10 ML SYR IVP ×5 (02:20→22:57)
[2019-12-18] MEDS: Normal Saline 1,000 ML 100 ML IV (02:21)
[2019-12-18 07:36] LABS: Abs Immature Grans 0.03 k/cumm (0.0-0.09); Absolute Basophil Count 0.04 k/cumm (0.0-0.2); Absolute Eosinophil Count 0.18 k/cumm (0.0-0.7); Absolute Lymphocyte Count 1.93 k/cumm (1.2-3.4); Absolute Monocyte Count 1.43 k/cumm (0.11-0.7); Absolute Neutrophil Count 3.95 k/cumm (1.2-6.7); Basophils % 0.5; Eosinophils % 2.4; HCT 35.2 % (36.0-46.0); HGB 11.3 g/dL (12.0-15.5); Immature Grans % 0.4 %; Lymphocytes % 25.5; Mean Corp. HGB Concentration 32.1 g/dL (32.0-36.0); Mean Corpuscular Volume 90.5 fL (80-95); Mean Platelet Volume 10.1 fL (8.0-11.0); Monocytes % 18.9; Neutrophils % 52.3; Platelet Count 351 x1000/uL (130-400); RBC 3.89 m/cumm (4.00-5.20); RBC Distribution Width 13.5 % (11.7-14.6); White Blood Cell Count 7.56 k/cumm (4.4-10.8)
[2019-12-18 08:03] LABS: ALT 34 U/L (14-59); AST 21 U/L (15-37); Albumin 2.2 g/dL (3.4-5.0); Alkaline Phosphatase 81 U/L (46-116); Amylase 21 U/L (25-115); Anion Gap 12.3 mmol/L (3-11); BUN 2 mg/dL (7-18); Bilirubin, Total 1.1 mg/dL (0.2-1.0); C-Reactive Protein 14.43 mg/dL (0.0-0.3); CO2 23.7 mmol/L (21.0-32.0); Chloride 106 mmol/L (98-107); Glucose 82 mg/dL (74-106); Lipase 116 U/L (73-393); Potassium 3.4 mmol/L (3.5-5.1); Sodium 142 mmol/L (136-145); Total Protein 6.2 g/dL (6.4-8.2)
[2019-12-18] MEDS: Pantoprazole 40 MG VIAL IVP (09:40)
[2019-12-18] MEDS: Acetaminophen 325 MG TAB PO (09:49)
[2019-12-18] MEDS: POTASSIUM CHLORIDE/D5-0.9%NACL 1,000 ML 100 MEQ IV ×2 (12:07→22:06)
--- NOTE | 2019-12-18 14:58 | PDOC.CMPRO ---
- If Service Date Differs Date of service: 12/18/19 Time of Service: 14:58 Care Management Progress Note S/O: Joyce was lying in bed when CM met with her. She reported that her procedure at [facility] [place] yesterday, and that she anticipates that she will return home soon, possibly tomorrow. She stated that she is feeling better today. CM will continue to follow. A: Joyce is a 24 year old female admitted to [facility] on 12/13/2019 with acute pancreatitis. P: Anticipate Joyce will return home with no additional services when medically cleared. She will follow up with her PCP and specialists as recommended. She will transport home via private vehicle with family. CM will continue to follow and support discharge planning considerations.
--- NOTE | 2019-12-18 15:09 | CHAPLAIN ---
Joyce was happy to report that the [facility] [place] [facility] [place] went well and that she's feeling better. She looked much more relaxed today. She thinks she may be able to be discharged tomorrow. 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 She has had her mother and grandmother here with her often during her stay.
--- NOTE | 2019-12-18 16:39 | W.PM.PROGNOT ---
Date of Service Date of service: 12/18/19 Time of Service: 16:39 Assessment and Plan Assessment and plan (1) Diverticulum of duodenum with complication: Status: Acute (2) Diverticulitis of duodenum: Status: Acute Assessment and plan: She has and infected diverticulum that is causing the pancreatitis. This inflammation was also causing the ampulla to swell and causing the elevated T. Twan. I did review the EUS/ERCP from yest. no sign of post procedure pancreatitis. They do want to see her back at [facility]. Pt states that her pancreatitis lately, has been doing better, until this episode, which has been pretty severe. She is feeling better today and wants to go home soon She did get a stent due to the swelling. She will need to have this out in 6-12 wks. Sx office will schedule f/u w/ GI for stent removal. She should f/u w/ Dr. Tan at [facility] heptobiliary Sx dpet and d/w poss resection. Her diverticulum is right next to the ampulla. unknown whether this can be done w/ just removing the diverticulum or may have may to do a WHIpplle She has time to decide this. certainly needs to recover from this episode. She can d/c'ed tomorrow w/ soft/low fat diet 10 days in total of abx 30 days of Probiotics F/u w/ Dr. Ford this coming week our office will arrange consultation w/ Dr. Tan at [facility] push fluids rest (3) Pancreatitis: Status: Chronic Qualifiers: Acute pancreatitis complication: unspecified Chronicity: acute Pancreatitis type: idiopathic Qualified Code(s): K85.00 - Idiopathic acute pancreatitis without necrosis or infection Subjective Subjective Interval history since last seen: Pt is doing well. no headaches. No CP or SOB. no productive cough. no dysuria. no leg pain or swelling. She is tolerating a soft bland diet. She is having diarrhea- but that is prob from the abx and lack of solids. no thrush or yeast. Exam Const General: cooperative, healthy appearing, comfortable, no acute distress, well developed and well groomed Nutritional Appearance: average body habitus and well nourished Orientation: alert, awake and oriented x3 HENMT Head: normal to inspection, normocephalic and atraumatic Ears: hearing grossly normal bilaterally and external ears normal General nose exam: external nose normal Face and sinus: normal facial exam and sinuses nontender Mouth: oral mucosae normal, lip normal, tongue normal and moist mucous membranes Teeth and gingiva: dentition normal Eyes General: appearance normal, both eyes and all related structures Conjunctivae: conjunctivae normal Sclera: sclerae normal Pupils: PERRL Neck Neck: normal visual inspection and full ROM Chest Chest: normal inspection of the chest Resp Effort & Inspection: normal respiratory effort, able to speak in complete sentences, no cough, no nasal flaring, not tachypneic and no use of accessory muscles Auscultation: clear to auscultation bilaterally, no rales, no rhonchi and no wheezes Cardio Jugular venous pressure: no JVD Rate: regular rate Rhythm: regular rhythm GI Inspection: normal to inspection, no edema and non-distended Palpation: soft, no masses, tender (mild today and + BS) in the epigastrum and in the RUQ; Castañeda's sign negative and with no rebound tenderness and No ascites Auscultation: normal bowel sounds Skin General skin exam: no rashes or lesions noted Trauma: no lacerations or abrasions Neuro General: alert, oriented x3, oriented, gait normal, moves all extremities, no focal motor deficits and CN's II-XI intact bilaterally Cognition: normal cognition Speech: speech normal Gait: normal gait Motor: muscle tone normal throughout Extrem General: normal to inspection, full ROM and no clubbing, cyanosis or edema Psych Appearance: grossly normal and well kempt Mental Status: mental status grossly normal Speech and Movement: speech and movement normal Affect: normal affect Objective Objective Clinical Data: Abnormal lab results 12/18/19 12/18/19 Range/Units 06:25 06:25 RBC 3.89 L (4.00-5.20) m/cumm Hgb 11.3 L (12.0-15.5) g/dL Hct 35.2 L (36.0-46.0) % Absolute Monocytes 1.43 H (0.11-0.7) k/cumm Potassium 3.4 L (3.5-5.1) mmol/L Anion Gap 12.3 H (3-11) mmol/L BUN 2 L (7-18) mg/dL Creatinine 0.50 L (0.55-1.02) mg/dL Calcium 8.0 L (8.5-10.1) mg/dL Total Bilirubin 1.1 H (0.2-1.0) mg/dL C-Reactive Protein 14.43 H (0.0-0.3) mg/dL Total Protein 6.2 L (6.4-8.2) g/dL Albumin 2.2 L (3.4-5.0) g/dL Amylase 21 L (25-115) U/L Vital Signs Temperature 37 C 12/18/19 15:29 Temperature Source Temporal Artery Scan 12/18/19 15:29 Pulse 103 H 12/18/19 15:29 Pulse Rhythm Regular 12/18/19 15:48 Pulse Strength Normal 12/13/19 17:30 Respiratory Rate 18 12/18/19 15:29 Respiratory Effort Non-Labored 12/18/19 15:48 Respiratory Depth Normal 12/18/19 15:48 Respiratory Pattern Normal 12/18/19 15:48 Blood Pressure 116/79 12/18/19 15:29 Blood Pressure Mean 90 12/13/19 17:30 Blood Pressure Position Right Lateral 12/13/19 17:30 Pulse Oximetry 97 12/18/19 15:29 Oxygen Delivery Method Room Air 12/18/19 15:29 Oxygen Flow Rate 0 12/18/19 15:29 Pain Level 0 12/18/19 15:29 Comment 12/17/19 07:32 Intake & Output 12/17/19 12/18/19 12/18/19 23:59 11:59 23:59 Intake Total 1100 / 2541.667 350 / 1070 720 / 1070 Balance 1100 / 2541.667 350 / 1070 720 / 1070 Weight 70.6 kg Intake: IV 1100 / 2541.667 110 / 110 Oral 240 / 960 720 / 960 Other: Urine Color Pale Yellow Urine Appearance Clear Clear Clear Urine Odor None Voiding Methods Toilet Toilet Laboratory Results WBC 7.56 k/cumm (4.4-10.8) 12/18/19 06:25 RBC 3.89 m/cumm (4.00-5.20) L 12/18/19 06:25 Hgb 11.3 g/dL (12.0-15.5) L 12/18/19 06:25 Hct 35.2 % (36.0-46.0) L 12/18/19 06:25 MCV 90.5 fL (80-95) 12/18/19 06:25 MCH 29.0 pg (27.0-33.0) 12/18/19 06:25 MCHC 32.1 g/dL (32.0-36.0) 12/18/19 06:25 RDW 13.5 % (11.7-14.6) 12/18/19 06:25 Plt Count 351 x1000/uL (130-400) 12/18/19 06:25 MPV 10.1 fL (8.0-11.0) 12/18/19 06:25 Immature Gran % 0.4 % 12/18/19 06:25 Neutrophils % 52.3 12/18/19 06:25 Band Neutrophils % 2.0 % 12/14/19 16:19 Lymphocytes % 25.5 12/18/19 06:25 Atypical Lymphs % 2 12/14/19 16:19 Monocytes % 18.9 12/18/19 06:25 Eosinophils % 2.4 12/18/19 06:25 Basophils % 0.5 12/18/19 06:25 Absolute Neutrophils 3.95 k/cumm (1.2-6.7) 12/18/19 06:25 Absolute Lymphocytes 1.93 k/cumm (1.2-3.4) 12/18/19 06:25 Absolute Monocytes 1.43 k/cumm (0.11-0.7) H 12/18/19 06:25 Absolute Eosinophils 0.18 k/cumm (0.0-0.7) 12/18/19 06:25 Absolute Basophils 0.04 k/cumm (0.0-0.2) 12/18/19 06:25 Differential Comment Agrees w/ instrument 12/17/19 06:35 RBC Morphology Normal 12/17/19 06:35 ESR 15 mm/hr (0-20) 12/14/19 16:19 PT 10.1 sec (9.3-11.0) 12/17/19 09:15 INR 1.0 (0.9-1.1) 12/17/19 09:15 Sodium 142 mmol/L (136-145) 12/18/19 06:25 Potassium 3.4 mmol/L (3.5-5.1) L 12/18/19 06:25 Chloride 106 mmol/L (98-107) 12/18/19 06:25 Carbon Dioxide 23.7 mmol/L (21.0-32.0) 12/18/19 06:25 Anion Gap 12.3 mmol/L (3-11) H 12/18/19 06:25 BUN 2 mg/dL (7-18) L 12/18/19 06:25 Creatinine 0.50 mg/dL (0.55-1.02) L 12/18/19 06:25 Estimated GFR/1.73 m2 >= 60.00 (mL/min/1.73m2) 12/18/19 06:25 Glucose 82 mg/dL (74-106) 12/18/19 06:25 Lactate 0.8 mmol/L (0.6-1.4) 12/14/19 16:19 Calcium 8.0 mg/dL (8.5-10.1) L 12/18/19 06:25 Magnesium 1.7 mg/dL (1.8-2.4) L 12/16/19 06:20 Total Bilirubin 1.1 mg/dL (0.2-1.0) H 12/18/19 06:25 Conjugated Bilirubin 1.18 mg/dL (0.00-0.20) H 12/14/19 16:19 AST 21 U/L (15-37) 12/18/19 06:25 ALT 34 U/L (14-59) 12/18/19 06:25 Alkaline Phosphatase 81 U/L (46-116) 12/18/19 06:25 C-Reactive Protein 14.43 mg/dL (0.0-0.3) H 12/18/19 06:25 Total Protein 6.2 g/dL (6.4-8.2) L 12/18/19 06:25 Albumin 2.2 g/dL (3.4-5.0) L 12/18/19 06:25 Triglycerides 43 mg/dL (<150) 12/13/19 14:45 Total Cholesterol 173 mg/dL (<200) 12/13/19 14:45 LDL Cholesterol, Calc 72 mg/dL 12/13/19 14:45 HDL Cholesterol 93 mg/dL (40-60) 12/13/19 14:45 Amylase 21 U/L (25-115) L 12/18/19 06:25 Lipase 116 U/L (73-393) 12/18/19 06:25 Procalcitonin 0.2 ng/mL 12/16/19 06:20 Urine Color Yellow (Yellow) 12/13/19 15:55 Urine Clarity Clear (Clear) 12/13/19 15:55 Urine pH 7.0 (5-8) 12/13/19 15:55 Ur Specific [place] 1.025 (1.005-1.025) 12/13/19 15:55 Urine Protein Negative mg/dL (Negative) 12/13/19 15:55 Urine Ketones 40 mg/dL (Negative) H 12/13/19 15:55 Urine Blood Negative (Negative) 12/13/19 15:55 Urine Nitrite Negative (Negative) 12/13/19 15:55 Urine Bilirubin Small (Negative) H 12/13/19 15:55 Urine Urobilinogen 2.0 EU/dL (Up TO 0.2) H 12/13/19 15:55 Ur Leukocyte Esterase Negative (Negative) 12/13/19 15:55 Urine Glucose Negative mg/dL (Negative) 12/13/19 15:55
[2019-12-18] MEDS: diphenhydrAMINE 25 MG CAP PO (18:38)
--- NOTE | 2019-12-18 19:26 | W.PM.PROGNOT ---
Date of Service Date of service: 12/18/19 Time of Service: 19:26 Assessment and Plan Assessment and plan (1) Diverticulum of duodenum with complication: Status: Acute Assessment and plan: She continues on ertapenem as treatment for the diverticulitis of the duodenum. Today shows marked improvement likely secondary to the ERCP and stent placement yesterday. Her labs reflect overall improvement. We will advance her diet to a regular diet. Recheck her labs in the a.m. (2) Pancreatitis: Status: Chronic Assessment and plan: Pancreatitis by endoscopic ultrasound. Her lipase has normalized. She appears overall improved. CRP has come down to 14.43. Will give potassium replacement. We will see how she does with a regular diet. Possible discharge in the next 24 to 48 hours. Qualifiers: Chronicity: acute Pancreatitis type: idiopathic Acute pancreatitis complication: unspecified Qualified Code(s): K85.00 - Idiopathic acute pancreatitis without necrosis or infection Subjective Subjective Interval history since last seen: Patient states she feels 100% better today. No abdominal pain. She can move around without any discomfort. It does not hurt to laugh or cough. She had a bowel movement overnight. She has had no further fevers. She is hungry. Exam Narrative Exam Narrative: On exam her affect is markedly improved. She is smiling and moving around freely without evidence of discomfort. Her abdominal exam shows a soft abdomen she has no guarding no rebound. Objective Objective Clinical Data: Abnormal lab results 12/18/19 12/18/19 Range/Units 06:25 06:25 RBC 3.89 L (4.00-5.20) m/cumm Hgb 11.3 L (12.0-15.5) g/dL Hct 35.2 L (36.0-46.0) % Absolute Monocytes 1.43 H (0.11-0.7) k/cumm Potassium 3.4 L (3.5-5.1) mmol/L Anion Gap 12.3 H (3-11) mmol/L BUN 2 L (7-18) mg/dL Creatinine 0.50 L (0.55-1.02) mg/dL Calcium 8.0 L (8.5-10.1) mg/dL Total Bilirubin 1.1 H (0.2-1.0) mg/dL C-Reactive Protein 14.43 H (0.0-0.3) mg/dL Total Protein 6.2 L (6.4-8.2) g/dL Albumin 2.2 L (3.4-5.0) g/dL Amylase 21 L (25-115) U/L Vital Signs Temperature 37 C 12/18/19 15:29 Temperature Source Temporal Artery Scan 12/18/19 15:29 Pulse 103 H 12/18/19 15:29 Pulse Rhythm Regular 12/18/19 15:48 Pulse Strength Normal 12/13/19 17:30 Respiratory Rate 18 12/18/19 15:29 Respiratory Effort Non-Labored 12/18/19 15:48 Respiratory Depth Normal 12/18/19 15:48 Respiratory Pattern Normal 12/18/19 15:48 Blood Pressure 116/79 12/18/19 15:29 Blood Pressure Mean 90 12/13/19 17:30 Blood Pressure Position Right Lateral 12/13/19 17:30 Pulse Oximetry 97 12/18/19 15:29 Oxygen Delivery Method Room Air 12/18/19 15:29 Oxygen Flow Rate 0 12/18/19 15:29 Pain Level 0 12/18/19 15:29 Comment 12/17/19 07:32 Intake & Output 12/17/19 12/18/19 12/18/19 23:59 11:59 23:59 Intake Total 1100 / 2541.667 450 / 1520 1070 / 1520 Balance 1100 / 2541.667 450 / 1520 1070 / 1520 Weight 70.6 kg Intake: IV 1100 / 2541.667 210 / 310 100 / 310 Oral 240 / 1210 970 / 1210 Other: Urine Color Pale Yellow Urine Appearance Clear Clear Clear Urine Odor None Voiding Methods Toilet Toilet Laboratory Results WBC 7.56 k/cumm (4.4-10.8) 12/18/19 06:25 RBC 3.89 m/cumm (4.00-5.20) L 12/18/19 06:25 Hgb 11.3 g/dL (12.0-15.5) L 12/18/19 06:25 Hct 35.2 % (36.0-46.0) L 12/18/19 06:25 MCV 90.5 fL (80-95) 12/18/19 06:25 MCH 29.0 pg (27.0-33.0) 12/18/19 06:25 MCHC 32.1 g/dL (32.0-36.0) 12/18/19 06:25 RDW 13.5 % (11.7-14.6) 12/18/19 06:25 Plt Count 351 x1000/uL (130-400) 12/18/19 06:25 MPV 10.1 fL (8.0-11.0) 12/18/19 06:25 Immature Gran % 0.4 % 12/18/19 06:25 Neutrophils % 52.3 12/18/19 06:25 Band Neutrophils % 2.0 % 12/14/19 16:19 Lymphocytes % 25.5 12/18/19 06:25 Atypical Lymphs % 2 12/14/19 16:19 Monocytes % 18.9 12/18/19 06:25 Eosinophils % 2.4 12/18/19 06:25 Basophils % 0.5 12/18/19 06:25 Absolute Neutrophils 3.95 k/cumm (1.2-6.7) 12/18/19 06:25 Absolute Lymphocytes 1.93 k/cumm (1.2-3.4) 12/18/19 06:25 Absolute Monocytes 1.43 k/cumm (0.11-0.7) H 12/18/19 06:25 Absolute Eosinophils 0.18 k/cumm (0.0-0.7) 12/18/19 06:25 Absolute Basophils 0.04 k/cumm (0.0-0.2) 12/18/19 06:25 Differential Comment Agrees w/ instrument 12/17/19 06:35 RBC Morphology Normal 12/17/19 06:35 ESR 15 mm/hr (0-20) 12/14/19 16:19 PT 10.1 sec (9.3-11.0) 12/17/19 09:15 INR 1.0 (0.9-1.1) 12/17/19 09:15 Sodium 142 mmol/L (136-145) 12/18/19 06:25 Potassium 3.4 mmol/L (3.5-5.1) L 12/18/19 06:25 Chloride 106 mmol/L (98-107) 12/18/19 06:25 Carbon Dioxide 23.7 mmol/L (21.0-32.0) 12/18/19 06:25 Anion Gap 12.3 mmol/L (3-11) H 12/18/19 06:25 BUN 2 mg/dL (7-18) L 12/18/19 06:25 Creatinine 0.50 mg/dL (0.55-1.02) L 12/18/19 06:25 Estimated GFR/1.73 m2 >= 60.00 (mL/min/1.73m2) 12/18/19 06:25 Glucose 82 mg/dL (74-106) 12/18/19 06:25 Lactate 0.8 mmol/L (0.6-1.4) 12/14/19 16:19 Calcium 8.0 mg/dL (8.5-10.1) L 12/18/19 06:25 Magnesium 1.7 mg/dL (1.8-2.4) L 12/16/19 06:20 Total Bilirubin 1.1 mg/dL (0.2-1.0) H 12/18/19 06:25 Conjugated Bilirubin 1.18 mg/dL (0.00-0.20) H 12/14/19 16:19 AST 21 U/L (15-37) 12/18/19 06:25 ALT 34 U/L (14-59) 12/18/19 06:25 Alkaline Phosphatase 81 U/L (46-116) 12/18/19 06:25 C-Reactive Protein 14.43 mg/dL (0.0-0.3) H 12/18/19 06:25 Total Protein 6.2 g/dL (6.4-8.2) L 12/18/19 06:25 Albumin 2.2 g/dL (3.4-5.0) L 12/18/19 06:25 Triglycerides 43 mg/dL (<150) 12/13/19 14:45 Total Cholesterol 173 mg/dL (<200) 12/13/19 14:45 LDL Cholesterol, Calc 72 mg/dL 12/13/19 14:45 HDL Cholesterol 93 mg/dL (40-60) 12/13/19 14:45 Amylase 21 U/L (25-115) L 12/18/19 06:25 Lipase 116 U/L (73-393) 12/18/19 06:25 Procalcitonin 0.2 ng/mL 12/16/19 06:20 Urine Color Yellow (Yellow) 12/13/19 15:55 Urine Clarity Clear (Clear) 12/13/19 15:55 Urine pH 7.0 (5-8) 12/13/19 15:55 Ur Specific [place] 1.025 (1.005-1.025) 12/13/19 15:55 Urine Protein Negative mg/dL (Negative) 12/13/19 15:55 Urine Ketones 40 mg/dL (Negative) H 12/13/19 15:55 Urine Blood Negative (Negative) 12/13/19 15:55 Urine Nitrite Negative (Negative) 12/13/19 15:55 Urine Bilirubin Small (Negative) H 12/13/19 15:55 Urine Urobilinogen 2.0 EU/dL (Up TO 0.2) H 12/13/19 15:55 Ur Leukocyte Esterase Negative (Negative) 12/13/19 15:55 Urine Glucose Negative mg/dL (Negative) 12/13/19 15:55
[2019-12-18] MEDS: Zolpidem 5 MG TAB PO (20:22)
[2019-12-19] MEDS: Normal Saline Flush 10 ML SYR IVP ×2 (02:52→09:00)
[2019-12-19 03:00] VITALS: BP 113/70; PULSE 92; RESP 16; TEMP 37.1; O2SAT 95
[2019-12-19 07:19] LABS: Abs Immature Grans 0.04 k/cumm (0.0-0.09); Absolute Basophil Count 0.06 k/cumm (0.0-0.2); Absolute Eosinophil Count 0.17 k/cumm (0.0-0.7); Absolute Lymphocyte Count 1.97 k/cumm (1.2-3.4); Absolute Monocyte Count 1.44 k/cumm (0.11-0.7); Absolute Neutrophil Count 2.86 k/cumm (1.2-6.7); Basophils % 0.9; Eosinophils % 2.6; HCT 34.9 % (36.0-46.0); HGB 11.3 g/dL (12.0-15.5); Immature Grans % 0.6 %; Lymphocytes % 30.1; Mean Corp. HGB Concentration 32.4 g/dL (32.0-36.0); Mean Corpuscular Hemoglobin 29.2 pg (27.0-33.0); Mean Corpuscular Volume 90.2 fL (80-95); Mean Platelet Volume 9.9 fL (8.0-11.0); Neutrophils % 43.8; Platelet Count 367 x1000/uL (130-400); RBC 3.87 m/cumm (4.00-5.20); RBC Distribution Width 13.5 % (11.7-14.6); White Blood Cell Count 6.54 k/cumm (4.4-10.8)
[2019-12-19 07:33] LABS: ALT 46 U/L (14-59); AST 33 U/L (15-37); Albumin 2.3 g/dL (3.4-5.0); Alkaline Phosphatase 76 U/L (46-116); BUN 1 mg/dL (7-18); Bilirubin, Total 0.8 mg/dL (0.2-1.0); CREATININE 0.51 mg/dL (0.55-1.02); Calcium 8.5 mg/dL (8.5-10.1); Chloride 109 mmol/L (98-107); Glucose 115 mg/dL (74-106); Potassium 3.3 mmol/L (3.5-5.1); Sodium 145 mmol/L (136-145); Total Protein 6.3 g/dL (6.4-8.2)
[2019-12-19 07:43] VITALS: BP 112/77; PULSE 84; RESP 18; TEMP 37; O2SAT 98
[2019-12-19] MEDS: POTASSIUM CHLORIDE/D5-0.9%NACL 1,000 ML 100 MEQ IV (08:59)
[2019-12-19] MEDS: Pantoprazole 40 MG VIAL IVP (09:00)
[2019-12-19] MEDS: Potassium Chloride 20 MEQ TABCR 40 MEQ PO (10:12)
[2019-12-19] MEDS: Amoxicillin 875/Clav. 125 TAB PO (10:13)
[2019-12-19 11:16] VITALS: BP 115/84; PULSE 89; RESP 18; TEMP 36.8; O2SAT 97
--- NOTE | 2019-12-19 12:36 | W.PM.DS.N ---
Date of service: 12/19/19 Time of Service: 12:37 DS: Diagnosis Discharge Diagnosis (1) Diverticulitis of duodenum: Status: Acute (2) Diverticulum of duodenum with complication: Status: Acute (3) Pancreatitis: Status: Acute Discharge Plan Disposition Patient Disposition: HOME Condition: Stable Discharge Details Chief Complaint: Abd Prob Clinical Impression: Pancreatitis, Pancreatic mass Reason For Visit: ACUTE PANCREATITIS Admit Date/Time: 12/13/19 15:55 Admit Provider: Feliz Yoo Attending Provider: Feliz Yoo Primary Care Provider: Joyce Wright ED Provider: Yolanda Donato Hospital Course Hospital Course: Blanka Lee is a 24 year old female with PMHx of what was previously thought to be pancreatic divisum who was admited to [facility] hospitalist service on 12/13/2019 with acute pancreatitis with evidence of a duodenal diverticulum and diverticulitis on the abdominal ultrasound and MRCP. She was made NPO, placed on aggressive IVF and empiric meropenem. She underwent an endoscopic ultrasound as well as ERCP with pancreatic duct stent placement at [facility] on 12/17/[address] Hayes. Findings were that, in fact, there was no evidence of pancreas divisum. There was indeed duodenal diverticulitis within a small diverticulum adjacent to the ampulla, 2 cm in diameter with debri within it. This was thought to be triggering her pancreatitis. Blanka was referred to Dr Tan for consideration of cholecystectomy +/- diverticulotomy or even possibly a Whipple procedure. Blanka returned to [facility] post-procedure and has had an uncomplicated post-operative course, with resolution in her lipase elevation, significant improvement of pain and nausea and now ability to tolerate PO. She was followed by general surgery throughout her hospitalization. On discharge, surgical recommendations are to finish a 10 day course of antibiotics (5 days of augmentin are being prescribed on discharge), 30 days of probiotics, aggressive PO fluids, rest, follow up with Dr Ford in the office next week and with Dr Tan at [facility]. I have verified that that referral is in the [facility] system as is a referral for a repeat EUS in the future. Blanka's pain is controlled without IV medications, she is able to tolerate a regular diet, and is medically stable for discharge home today. She is instructed to return to the hospital if she feels worse or spikes a fever. She verbalizes understanding of my instructions, including not driving if she is taking narcotic pain medications (she is being rx'ed 5 day supply of oxycodone 5 mg PO Q6hrs prn). She is also encouraged to continue the use of an incentive spirometer at home. Care for patient as well as preparation of her discharge summary on day of discharge took 45 minues. Home Meds and New Rx's Prescriptions: New sennosides [Senokot] 8.6 mg Tablet 1 tab PO HS Qty: 10 RF: 0 docusate sodium [Colace] 100 mg Capsule 100 mg PO TID Qty: 30 RF: 0 amoxicillin-pot clavulanate 875-125 mg Tablet 1 tab PO BID Qty: 10 RF: 0 Bio-K plus 50 billion cell capsule,delayed release(DR/EC) 1 cap PO DAILY Qty: 30 RF: 0 Continued ibuprofen [IBU-200] 200 mg Tablet 400 mg PO Q6H PRNRF: 0 acetaminophen 325 mg Capsule 650 mg PO Q6H PRN PRNRF: 0 oxycodone 5 mg tablet 5 mg PO Q6H PRN (Reason: pain) Qty: 20 RF: 0 Control Pill 1 tab PO DAILY RF: 0 ondansetron 4 mg tablet,disintegrating 4 mg PO Q8H PRN (Reason: nausea and vomiting) Qty: 30 RF: 0 Discharge Instructions Instructions: Pancreatitis (DC), Diverticulitis (DC), ERCP (Endoscopic Retrograde Cholangiopancreatography) (DC) Additional Instructions: Return to the hospital with any fever, worsening abdominal pain, bleeding, chest pain, or shortness of breath. Drink lots of fluids. Follow a low fat diet. Follow up with general surgery next week (Dr Ford). Dr Tan referral is in [facility] network, but they have not made your appointment yet - they will contact you with that information. Use your incentive spirometer every time you see a commercial on TV. Referrals: Marsha Ford MD [ [facility] STAFF PHYSICIAN] - Joyce Wright [Primary Care Provider] - Activity:: Activity as Tolerated Equipment/Supplies:: No Equipment Needed Diet:: low fat Discharge Orders Discharge Orders: Discharge Order (Routine); Ordered 12/19/19 Ordered By: Tamia Burns DS: Summary Status at Discharge Functional status at discharge: independent ambulation Overall status at discharge: patient is progressing back to baseline Mental Status: mental status grossly normal Speech and Movement: speech and movement normal Mood: congruent mood Affect: normal affect Exam Narrative Exam Narrative: General: Very pleasant female, appears pale, A&OX3, seen ambulating in the hallway multiple times, as well as in her room, no distress, slight dyspnea on exertion HEENT: EOMI, MMM Heart: RRR, no m/r/g Lungs: Diminished at B bases; otherwise, CTAB Abdomen: soft, slight tenderness RUQ Extremities: no edema BLE's Psych Mental Status: mental status grossly normal Speech and Movement: speech and movement normal Mood: congruent mood Affect: normal affect DS: Data Vitals/I&O Vitals and I&O: Vital Signs Temperature 36.8 C 12/19/19 11:16 Temperature Source Tympanic 12/19/19 11:16 Pulse 89 12/19/19 11:16 Pulse Rhythm Regular 12/18/19 23:00 Pulse Strength Normal 12/13/19 17:30 Respiratory Rate 18 12/19/19 11:16 Respiratory Effort Non-Labored 12/18/19 23:00 Respiratory Depth Normal 12/18/19 23:00 Respiratory Pattern Normal 12/18/19 23:00 Blood Pressure 115/84 12/19/19 11:16 Blood Pressure Mean 90 12/13/19 17:30 Blood Pressure Position Right Lateral 12/13/19 17:30 Pulse Oximetry 97 12/19/19 11:16 Oxygen Delivery Method Room Air 12/19/19 11:16 Oxygen Flow Rate 0 12/19/19 11:16 Pain Level 0 12/19/19 11:16 Comment 12/17/19 07:32 Intake & Output 12/18/19 12/19/19 12/19/19 23:59 11:59 23:59 Intake Total 8.333 / 2518.333 1868.333 / 1868.333 Balance 8.333 / 2518.333 1868.333 / 1868.333 Intake: IV 1098.333 / 4775.932 0907.333 / 1168.333 Oral 970 / 1210 700 / 700 Other: Urine Appearance Clear Comment pt voiding independently. Voiding Methods Toilet Toilet Data Completed and Pending Completed studies during hospitalization [Text1]: CT abdomen/pelvis 12/13/2019: Question of a diverticulum versus mass located in the head of the pancreas. There is question of communication with the pancreatic duct versus duodenal diverticulum. MRCP 12/14/2019: Increasing inflammation involving the lesion near the pancreatic head. The lesion appears to represent a duodenal diverticulum lying adjacent to the pancreatic head. There is increased fluid is seen in the upper abdomen as well as tiny bilateral pleural effusions. US abdomen 12/14/2019: The diverticulum seen on previous examinations is identified by ultrasound and contains an apparent shadowing stone and appears inflamed. Lesion seen in the liver on MRI is not visible by ultrasound. Labs on day of discharge: Labs from last 24 hours 12/19/19 12/19/19 06:35 06:35 WBC 6.54 RBC 3.87 L Hgb 11.3 L Hct 34.9 L MCV 90.2 MCH 29.2 MCHC 32.4 RDW 13.5 Plt Count 367 MPV 9.9 Immature Gran % 0.6 Neutrophils % 43.8 Lymphocytes % 30.1 Monocytes % 22.0 Eosinophils % 2.6 Basophils % 0.9 Absolute Neutrophils 2.86 Absolute Lymphocytes 1.97 Absolute Monocytes 1.44 H Absolute Eosinophils 0.17 Absolute Basophils 0.06 Sodium 145 Potassium 3.3 L Chloride 109 H Carbon Dioxide 24.0 Anion Gap 12.0 H BUN 1 L Creatinine 0.51 L Estimated GFR/1.73 m2 >= 60.00 Glucose 115 H Calcium 8.5 Total Bilirubin 0.8 AST 33 ALT 46 Alkaline Phosphatase 76 Total Protein 6.3 L Albumin 2.3 L Preliminary micro results at discharge 12/14/19 16:19 Blood Culture - Preliminary Blood NO GROWTH 96 HOURS 12/14/19 16:19 Blood Culture - Preliminary Blood NO GROWTH 96 HOURS [facility] Medical History (Updated 12/19/19 @ 12:37 by Tamia Burns MD) Anxiety about health (Acute) Diverticulum of duodenum (Acute) Diverticulum of duodenum with complication (Acute) Pancreatic divisum (Acute) Pancreatitis (Acute) Family History Mother Pancreatitis Social History Smoking/Tobacco Use Status: Never Alcohol Intake: current Alcohol Intake frequency: a few times a month Drug use: Never Substance use type: does not use Do you feel safe at home: Yes Do you feel safe in your relationship?: Yes Female Reproductive History Menstrual control method: pills History History 0 Para Hx # Term Pregnancies Multiple births Hx # Pregnancies Ectopic pregnancies AB induced Hx Number of Living Children AB spontaneous
--- NOTE | 2019-12-19 12:36 | W.PM.PROGNOT ---
Date of Service Date of service: 12/19/19 Time of Service: 12:37 Assessment and Plan Assessment and plan (1) Diverticulitis of duodenum: Status: Acute Assessment and plan: d/c home on 10 days of abx total. Augmentin use kefer as a pro-biotic IS nutritional support. low fat soft diet. D/w her food choices/options. F/u w/ GI in 6-8wks at [facility] for stent removal. Our office will coordinate appt F/u Dr. Tan at [facility] for consult regarding poss surgery for the diverticulum. She will F/u w/ Dr. Ford next week to decide on RTW. (2) Pancreatitis: Status: Acute Qualifiers: Chronicity: acute Pancreatitis type: idiopathic Acute pancreatitis complication: unspecified Qualified Code(s): K85.00 - Idiopathic acute pancreatitis without necrosis or infection Subjective Subjective Interval history since last seen: Follow-up with Dr. Barcenas in the office on . She will need to call for an appointment on Saturday. Our office will get her set up with appointments to get the stent out in 6 to 12 weeks. And get an appointment set up with Dr. Tan the hepatobiliary surgeon at [facility] for consultation regarding surgery She is doing well. She has mild- moderate pain. She still feels bloated and distended. She is moving her bowels- still very loose. This is going to be nl for some time. There is no blood. She is tolerating soft low fat diet. no headaches. No CP or SOB. no productive cough. no dysuria. no leg pain or swelling. no thrush or yeast infections. We reviewed diet and home cares. She can see Dr. Ford next week and decide on RTW- she wants to return to nl as quick as poss. She was quite ill this time- i did caution her that she is going to be very tired and need to recuperate. We discussed surgery a little further- she seems in a better place to d/w this and has time to process. Exam Const General: cooperative, healthy appearing, comfortable, no acute distress, well developed and well groomed Nutritional Appearance: average body habitus and well nourished Orientation: alert, awake and oriented x3 HENMT Head: normal to inspection, normocephalic and atraumatic Ears: hearing grossly normal bilaterally and external ears normal General nose exam: external nose normal Face and sinus: normal facial exam and sinuses nontender Mouth: oral mucosae normal, lip normal, tongue normal and moist mucous membranes Teeth and gingiva: dentition normal Eyes General: appearance normal, both eyes and all related structures Conjunctivae: conjunctivae normal Sclera: sclerae normal Pupils: PERRL Neck Neck: normal visual inspection and full ROM Chest Chest: normal inspection of the chest Resp Effort & Inspection: normal respiratory effort, able to speak in complete sentences, no cough, no nasal flaring, not tachypneic and no use of accessory muscles Auscultation: clear to auscultation bilaterally, no rales, no rhonchi and no wheezes Cardio Jugular venous pressure: no JVD Rate: regular rate Rhythm: regular rhythm GI Inspection: normal to inspection, no edema and non-distended Palpation: soft, no masses, tender and No ascites Auscultation: normal bowel sounds Other: mild pain. to rebound or guarding Skin General skin exam: no rashes or lesions noted Trauma: no lacerations or abrasions Neuro General: alert, oriented x3, oriented, gait normal, moves all extremities, no focal motor deficits and CN's II-XI intact bilaterally Cognition: normal cognition Speech: speech normal Gait: normal gait Motor: muscle tone normal throughout Extrem General: normal to inspection, full ROM and no clubbing, cyanosis or edema Psych Appearance: grossly normal and well kempt Mental Status: mental status grossly normal Speech and Movement: speech and movement normal Affect: normal affect Objective Objective Clinical Data: Abnormal lab results 12/19/19 12/19/19 Range/Units 06:35 06:35 RBC 3.87 L (4.00-5.20) m/cumm Hgb 11.3 L (12.0-15.5) g/dL Hct 34.9 L (36.0-46.0) % Absolute Monocytes 1.44 H (0.11-0.7) k/cumm Potassium 3.3 L (3.5-5.1) mmol/L Chloride 109 H (98-107) mmol/L Anion Gap 12.0 H (3-11) mmol/L BUN 1 L (7-18) mg/dL Creatinine 0.51 L (0.55-1.02) mg/dL Glucose 115 H (74-106) mg/dL Total Protein 6.3 L (6.4-8.2) g/dL Albumin 2.3 L (3.4-5.0) g/dL Vital Signs Temperature 36.8 C 12/19/19 11:16 Temperature Source Tympanic 12/19/19 11:16 Pulse 89 12/19/19 11:16 Pulse Rhythm Regular 12/18/19 23:00 Pulse Strength Normal 12/13/19 17:30 Respiratory Rate 18 12/19/19 11:16 Respiratory Effort Non-Labored 12/18/19 23:00 Respiratory Depth Normal 12/18/19 23:00 Respiratory Pattern Normal 12/18/19 23:00 Blood Pressure 115/84 12/19/19 11:16 Blood Pressure Mean 90 12/13/19 17:30 Blood Pressure Position Right Lateral 12/13/19 17:30 Pulse Oximetry 97 12/19/19 11:16 Oxygen Delivery Method Room Air 12/19/19 11:16 Oxygen Flow Rate 0 12/19/19 11:16 Pain Level 0 12/19/19 11:16 Comment 12/17/19 07:32 Intake & Output 12/18/19 12/19/19 12/19/19 23:59 11:59 23:59 Intake Total 2068.333 / 2518.333 1868.333 / 1868.333 Balance 2068.333 / 2518.333 1868.333 / 1868.333 Intake: IV 1098.333 / 2311.284 2922.333 / 1168.333 Oral 970 / 1210 700 / 700 Other: Urine Appearance Clear Comment pt voiding independently. Voiding Methods Toilet Toilet Laboratory Results WBC 6.54 k/cumm (4.4-10.8) 12/19/19 06:35 RBC 3.87 m/cumm (4.00-5.20) L 12/19/19 06:35 Hgb 11.3 g/dL (12.0-15.5) L 12/19/19 06:35 Hct 34.9 % (36.0-46.0) L 12/19/19 06:35 MCV 90.2 fL (80-95) 12/19/19 06:35 MCH 29.2 pg (27.0-33.0) 12/19/19 06:35 MCHC 32.4 g/dL (32.0-36.0) 12/19/19 06:35 RDW 13.5 % (11.7-14.6) 12/19/19 06:35 Plt Count 367 x1000/uL (130-400) 12/19/19 06:35 MPV 9.9 fL (8.0-11.0) 12/19/19 06:35 Immature Gran % 0.6 % 12/19/19 06:35 Neutrophils % 43.8 12/19/19 06:35 Band Neutrophils % 2.0 % 12/14/19 16:19 Lymphocytes % 30.1 12/19/19 06:35 Atypical Lymphs % 2 12/14/19 16:19 Monocytes % 22.0 12/19/19 06:35 Eosinophils % 2.6 12/19/19 06:35 Basophils % 0.9 12/19/19 06:35 Absolute Neutrophils 2.86 k/cumm (1.2-6.7) 12/19/19 06:35 Absolute Lymphocytes 1.97 k/cumm (1.2-3.4) 12/19/19 06:35 Absolute Monocytes 1.44 k/cumm (0.11-0.7) H 12/19/19 06:35 Absolute Eosinophils 0.17 k/cumm (0.0-0.7) 12/19/19 06:35 Absolute Basophils 0.06 k/cumm (0.0-0.2) 12/19/19 06:35 Differential Comment Agrees w/ instrument 12/17/19 06:35 RBC Morphology Normal 12/17/19 06:35 ESR 15 mm/hr (0-20) 12/14/19 16:19 PT 10.1 sec (9.3-11.0) 12/17/19 09:15 INR 1.0 (0.9-1.1) 12/17/19 09:15 Sodium 145 mmol/L (136-145) 12/19/19 06:35 Potassium 3.3 mmol/L (3.5-5.1) L 12/19/19 06:35 Chloride 109 mmol/L (98-107) H 12/19/19 06:35 Carbon Dioxide 24.0 mmol/L (21.0-32.0) 12/19/19 06:35 Anion Gap 12.0 mmol/L (3-11) H 12/19/19 06:35 BUN 1 mg/dL (7-18) L 12/19/19 06:35 Creatinine 0.51 mg/dL (0.55-1.02) L 12/19/19 06:35 Estimated GFR/1.73 m2 >= 60.00 (mL/min/1.73m2) 12/19/19 06:35 Glucose 115 mg/dL (74-106) H 12/19/19 06:35 Lactate 0.8 mmol/L (0.6-1.4) 12/14/19 16:19 Calcium 8.5 mg/dL (8.5-10.1) 12/19/19 06:35 Magnesium 1.7 mg/dL (1.8-2.4) L 12/16/19 06:20 Total Bilirubin 0.8 mg/dL (0.2-1.0) 12/19/19 06:35 Conjugated Bilirubin 1.18 mg/dL (0.00-0.20) H 12/14/19 16:19 AST 33 U/L (15-37) 12/19/19 06:35 ALT 46 U/L (14-59) 12/19/19 06:35 Alkaline Phosphatase 76 U/L (46-116) 12/19/19 06:35 C-Reactive Protein 14.43 mg/dL (0.0-0.3) H 12/18/19 06:25 Total Protein 6.3 g/dL (6.4-8.2) L 12/19/19 06:35 Albumin 2.3 g/dL (3.4-5.0) L 12/19/19 06:35 Triglycerides 43 mg/dL (<150) 12/13/19 14:45 Total Cholesterol 173 mg/dL (<200) 12/13/19 14:45 LDL Cholesterol, Calc 72 mg/dL 12/13/19 14:45 HDL Cholesterol 93 mg/dL (40-60) 12/13/19 14:45 Amylase 21 U/L (25-115) L 12/18/19 06:25 Lipase 116 U/L (73-393) 12/18/19 06:25 Procalcitonin 0.2 ng/mL 12/16/19 06:20 Urine Color Yellow (Yellow) 12/13/19 15:55 Urine Clarity Clear (Clear) 12/13/19 15:55 Urine pH 7.0 (5-8) 12/13/19 15:55 Ur Specific [place] 1.025 (1.005-1.025) 12/13/19 15:55 Urine Protein Negative mg/dL (Negative) 12/13/19 15:55 Urine Ketones 40 mg/dL (Negative) H 12/13/19 15:55 Urine Blood Negative (Negative) 12/13/19 15:55 Urine Nitrite Negative (Negative) 12/13/19 15:55 Urine Bilirubin Small (Negative) H 12/13/19 15:55 Urine Urobilinogen 2.0 EU/dL (Up TO 0.2) H 12/13/19 15:55 Ur Leukocyte Esterase Negative (Negative) 12/13/19 15:55 Urine Glucose Negative mg/dL (Negative) 12/13/19 15:55
--- NOTE | 2019-12-19 14:53 | CMDISCH_ITS ---
- If Service Date Differs Date of service: 12/19/19 Time of Service: 14:54 LACE Index Scoring Tool - Questions: Length of Stay (in days): 4 - 6 Acuity (Admit via E.D.?): Yes E.D. Visits: 2 - Answers: Total Score: 9 Risk of Readmission: Low Risk Care Management Discharge Reason for Hospitalization: Pancreatitis Discharge Plan: Joyce will be discharged home with no new services. She will follow up with her PCP, surgeon and the providers at [facility] for stent removal in 2 weeks. She will discharge home wth her mother via private vehicle. Patient/Family Education Needs: Discharge plan and follow up, limiatations, Ask Me Three
== END 2019-12-19 14:11 | disposition home or self-care (01) | DRG 439 ==
LOC: ER 16:21 → MS 17:39
PROVIDERS: Family Medicine; Surgery; Admitting Provider Internal Medicine; Emergency Provider Physician Assistant; PCP Nurse Practitioner Family; Visit Provider Internal Medicine
DX: K85.90 Acute pancreatitis without necrosis or infection, unspecified (principal); K57.12 Diverticulitis of small intestine without perforation or abscess without bleeding; K31.5 Obstruction of duodenum; Q45.3 Other congenital malformations of pancreas and pancreatic duct; K57.10 Diverticulosis of small intestine without perforation or abscess without bleeding; E83.42 Hypomagnesemia; R50.9 Fever, unspecified; F41.8 Other specified anxiety disorders; F43.0 Acute stress reaction; R06.09 Other forms of dyspnea; Z48.815 Encounter for surgical aftercare following surgery on the digestive system; E87.6 Hypokalemia
CPT/HCPCS: 36415; 74183; 80048; 80053; 80061; 80076; 81025; 83690; 84145; 85652; 87040; 96361; 96374; 96375; 96376; 99223; 99231; 99232; 99233; 99239; 99252; 99285; NC; 76700; 81003; 82150; 83605; 83735; 85025; 85610; 86140; 99281; J1200; J2405; J3475

== ENCOUNTER 2019-12-21 09:41 | Outpatient (CLI) | payer OTHER, SELFPAY ==
[2019-12-21 11:05] LABS: Abs Immature Grans 0.04 k/cumm (0.0-0.09); Absolute Basophil Count 0.08 k/cumm (0.0-0.2); Absolute Eosinophil Count 0.25 k/cumm (0.0-0.7); Absolute Lymphocyte Count 2.48 k/cumm (1.2-3.4); Absolute Monocyte Count 1.02 k/cumm (0.11-0.7); Absolute Neutrophil Count 3.41 k/cumm (1.2-6.7); Basophils % 1.1; Eosinophils % 3.4; HGB 13.3 g/dL (12.0-15.5); Immature Grans % 0.5 %; Lymphocytes % 34.1; Mean Corp. HGB Concentration 32.4 g/dL (32.0-36.0); Mean Corpuscular Hemoglobin 29.2 pg (27.0-33.0); Mean Corpuscular Volume 89.9 fL (80-95); Mean Platelet Volume 9.4 fL (8.0-11.0); Neutrophils % 46.9; Platelet Count 521 x1000/uL (130-400); RBC 4.56 m/cumm (4.00-5.20); RBC Distribution Width 13.5 % (11.7-14.6); White Blood Cell Count 7.28 k/cumm (4.4-10.8)
[2019-12-21 11:59] LABS: ALT 85 U/L (14-59); AST 38 U/L (15-37); Albumin 3.3 g/dL (3.4-5.0); Alkaline Phosphatase 101 U/L (46-116); Anion Gap 13.2 mmol/L (3-11); BUN 8 mg/dL (7-18); Bilirubin, Direct 0.56 mg/dL (0.00-0.20); Bilirubin, Total 0.8 mg/dL (0.2-1.0); C-Reactive Protein 2.48 mg/dL (0.0-0.3); CO2 24.8 mmol/L (21.0-32.0); CREATININE 0.78 mg/dL (0.55-1.02); Calcium 9.8 mg/dL (8.5-10.1); Chloride 103 mmol/L (98-107); Glucose 128 mg/dL (74-106); Potassium 4.4 mmol/L (3.5-5.1); Sodium 141 mmol/L (136-145); Total Protein 7.6 g/dL (6.4-8.2)
== END 2019-12-21 10:01 ==
PROVIDERS: PCP Nurse Practitioner Family; Visit Provider Internal Medicine
DX: E87.6 Hypokalemia (principal); K85.90 Acute pancreatitis without necrosis or infection, unspecified; K57.10 Diverticulosis of small intestine without perforation or abscess without bleeding
CPT/HCPCS: 36415; 80048; 80076; 83735; 85025; 86140

== ENCOUNTER 2020-01-28 17:09 | Emergency (ER) | payer OTHER, SELFPAY ==
[2020-01-28 17:20] VITALS: BP 120/68; PULSE 117; RESP 20; TEMP 37.1; O2SAT 97
[2020-01-28 18:08] LABS: Bilirubin Negative (Negative); Blood Negative (Negative); Clarity Clear (Clear); Glucose Negative (Negative); Ketones Negative (Negative); Leukocyte Esterase Negative (Negative); Nitrite Negative (Negative); Urobilinogen 0.2 EU/dL (Up TO 0.2)
[2020-01-28] MEDS: Normal Saline Flush 10 ML SYR IVP (18:36)
[2020-01-28] MEDS: Normal Saline 1,000 ML 1000 ML IV (18:40)
[2020-01-28] MEDS: HYDROmorphone 2 MG/ML VIAL 0.5 MG IVP (18:45)
[2020-01-28 18:55] LABS: ALT 14 U/L (14-59); AST 12 U/L (15-37); Albumin 3.4 g/dL (3.4-5.0); Alkaline Phosphatase 61 U/L (46-116); Anion Gap 8.6 mmol/L (3-11); BUN 7 mg/dL (7-18); Bilirubin, Total 0.4 mg/dL (0.2-1.0); CO2 25.4 mmol/L (21.0-32.0); CREATININE 0.62 mg/dL (0.55-1.02); Calcium 8.4 mg/dL (8.5-10.1); Chloride 105 mmol/L (98-107); Glucose 90 mg/dL (74-106); Potassium 3.8 mmol/L (3.5-5.1); Sodium 139 mmol/L (136-145); Total Protein 7.2 g/dL (6.4-8.2)
[2020-01-28 19:01] LABS: Abs Immature Grans 0.02 k/cumm (0.0-0.09); Absolute Basophil Count 0.03 k/cumm (0.0-0.2); Absolute Eosinophil Count 0.22 k/cumm (0.0-0.7); Absolute Lymphocyte Count 2.25 k/cumm (1.2-3.4); Absolute Monocyte Count 1.41 k/cumm (0.11-0.7); Absolute Neutrophil Count 5.86 k/cumm (1.2-6.7); Basophils % 0.3; Eosinophils % 2.2; HCT 39.6 % (36.0-46.0); HGB 12.4 g/dL (12.0-15.5); Immature Grans % 0.2 %; Mean Corp. HGB Concentration 31.3 g/dL (32.0-36.0); Mean Corpuscular Hemoglobin 28.8 pg (27.0-33.0); Mean Corpuscular Volume 92.1 fL (80-95); Mean Platelet Volume 10.5 fL (8.0-11.0); Monocytes % 14.4; Neutrophils % 59.9; Platelet Count 369 x1000/uL (130-400); RBC Distribution Width 14.6 % (11.7-14.6); White Blood Cell Count 9.79 k/cumm (4.4-10.8)
[2020-01-28 19:09] LABS: Lipase 4765 U/L (73-393)
[2020-01-28] MEDS: HYDROmorphone 2 MG/ML VIAL 1 MG IVP (19:40)
--- NOTE | 2020-01-28 20:21 | ED.GENADUL_ITS ---
Discharge Plan Disposition Patient Disposition: HOME Condition: Stable Discharge Details Chief Complaint: Abd Prob Clinical Impression: Pancreatitis Primary Care Provider: Joyce Wright ED Provider: Feliz Santos Home Meds and New Rx's Prescriptions: Continued ibuprofen [IBU-200] 200 mg Tablet 400 mg PO Q6H PRNRF: 0 acetaminophen 325 mg Capsule 650 mg PO Q6H PRN PRNRF: 0 sennosides [Senokot] 8.6 mg Tablet 1 tab PO HS Qty: 10 RF: 0 docusate sodium [Colace] 100 mg Capsule 100 mg PO TID Qty: 30 RF: 0 amoxicillin-pot clavulanate 875-125 mg Tablet 1 tab PO BID Qty: 10 RF: 0 Bio-K plus 50 billion cell capsule,delayed release(DR/EC) 1 cap PO DAILY Qty: 30 RF: 0 oxycodone 5 mg tablet 5 mg PO Q6H PRN (Reason: pain) Qty: 20 RF: 0 Control Pill 1 tab PO DAILY RF: 0 ondansetron 4 mg tablet,disintegrating 4 mg PO Q8H PRN (Reason: nausea and vomiting) Qty: 30 RF: 0 Discharge Instructions Instructions: Pancreatitis (ED) Additional Instructions: At this time you understand that you have pancreatitis, your lipase is over 4000. We discussed longer observation here in the ER or even admission however you feel as though your pain is tolerable and would prefer to go home. I did personally reach out to your GI team at [facility], they are aware of your visit this evening and your decision to be discharged home. Please watch for new or worsening symptoms and return to the ER for any concerns. Otherwise I recommend reaching out to your GI team tomorrow for prompt outpatient reevaluation. Discharge Data Discharge Date/Time-TO BE ENTERED AT DEPARTURE: 01/28/20 20:45 Medical Decision Making 24-year-old female with abdominal pain that began yesterday associate with mild nausea. Recent complicated history of pancreatitis, pancreatic stent, diverticulosis. Reports that she had a standing order for Augmentin, did take the Augmentin when her pain began but has made no change. She feels as though this is more pancreatitis related as opposed to diverticulitis but cannot be 100% sure. She does let me know upfront that she would prefer to be discharged home and would like to avoid admission if at all possible. Will obtain routine laboratory values including lipase. Will give IV fluid and 0.5 of Dilaudid. Laboratory values reveal a white count of 9.79 hemoglobin 12.4 hematocrit 39.6, platelet count of 369. Lipase 4765. She reports that her initial pain was helped with the Dilaudid however it has come back. Was given a another dose of Dilaudid, this time 1 mg. Patient appears well, nontoxic. She is afebrile and her white count is normal. Less likely infectious process. Patient did recently have CT imaging for her initial presentation and has since had an outpatient endoscopy. Discussed labs and options with patient. Further observation here in the ER even observation admission was offered. Patient would rather go home, she feels as though she can tolerate this. I did reach out to GI at [facility], was able to speak with Dr. Weinberg. She is aware of the patient's case, recommends treating the patient like any other patient with pancreatitis and no special precautions need to be made with her stent placement. Patient prefers to go home then that can be arranged however she must realize that if she cannot tolerate oral intake she will need to come back to the ER for likely IV antiemetics and hydration. Patient is well aware of this and understands the risks of going home now. She was encouraged to return to the ER for new or worsening symptoms, otherwise contact her GI specialist tomorrow for prompt outpatient reevaluation Medical Records Medical records reviewed: Yes I reviewed the patient's medical records. Lab Data Lab results reviewed: Yes I reviewed the patient's lab results. Lab results narrative: Laboratory Tests Range/Units 01/28/20 01/28/20 01/28/20 17:37 18:25 18:25 WBC (4.4-10.8) k/cumm 9.79 RBC (4.00-5.20) m/cumm 4.30 Hgb (12.0-15.5) g/dL 12.4 Hct (36.0-46.0) % 39.6 MCV (80-95) fL 92.1 MCH (27.0-33.0) pg 28.8 MCHC (32.0-36.0) g/dL 31.3 L RDW (11.7-14.6) % 14.6 Plt Count (130-400) x1000/uL 369 MPV (8.0-11.0) fL 10.5 Immature Gran % % 0.2 Neutrophils % 59.9 Lymphocytes % 23.0 Monocytes % 14.4 Eosinophils % 2.2 Basophils % 0.3 Absolute Neutrophils (1.2-6.7) k/cumm 5.86 Absolute Lymphocytes (1.2-3.4) k/cumm 2.25 Absolute Monocytes (0.11-0.7) k/cumm 1.41 H Absolute Eosinophils (0.0-0.7) k/cumm 0.22 Absolute Basophils (0.0-0.2) k/cumm 0.03 Sodium (136-145) mmol/L 139 Potassium (3.5-5.1) mmol/L 3.8 Chloride (98-107) mmol/L 105 Carbon Dioxide (21.0-32.0) mmol/L 25.4 Anion Gap (3-11) mmol/L 8.6 BUN (7-18) mg/dL 7 Creatinine (0.55-1.02) mg/dL 0.62 Estimated GFR/1.73 m2 (mL/min/1.73m2) >= 60.00 Glucose (74-106) mg/dL 90 Calcium (8.5-10.1) mg/dL 8.4 L Total Bilirubin (0.2-1.0) mg/dL 0.4 AST (15-37) U/L 12 L ALT (14-59) U/L 14 Alkaline Phosphatase (46-116) U/L 61 Total Protein (6.4-8.2) g/dL 7.2 Albumin (3.4-5.0) g/dL 3.4 Lipase (73-393) U/L 4765 H Urine Color (Yellow) Yellow Urine Clarity (Clear) Clear Urine pH (5-8) 7.0 Ur Specific [place] (1.005-1.025) 1.020 Urine Protein (Negative) mg/dL Negative Urine Ketones (Negative) mg/dL Negative Urine Blood (Negative) Negative Urine Nitrite (Negative) Negative Urine Bilirubin (Negative) Negative Urine Urobilinogen (Up TO 0.2) EU/dL 0.2 Ur Leukocyte Esterase (Negative) Negative Urine Glucose (Negative) mg/dL Negative HPI General Mode of arrival: ambulatory . Date/Time Provider Initiated Documentation: 01/28/20 17:24 . Limitations to Documentation: no limitations . Information obtained by: patient and family . HPI Narrative: This is a 24-year-old female who presents to the ER today with abdominal pain left upper quadrant that began yesterday. She has a diagnosis of pancreatitis back in November, subsequent endoscopy that revealed a large diverticulum in her duodenum. She contacted her GI specialist at [facility] and they recommend obtaining laboratory values to evaluate for acute pancreatitis. She contacted her primary care provider however they recommended coming to the ER as opposed to outpatient laboratory values. She did have a stent placed in the beginning of December in her pancreas, this is scheduled to come out in 2 days. She reports mild nausea but no vomiting. She denies fever, headaches, chest pain, cough, diarrhea, constipation, dysuria, hematuria, skin rash. She reports that she did take her medications as directed. Related Data Home Medications Medication Instructions Recorded Confirmed Control Pill 1 tab PO DAILY 09/29/19 01/28/20 acetaminophen 650 mg PO Q6H PRN PRN 12/13/19 01/28/20 ibuprofen [IBU-200] 400 mg PO Q6H PRN 12/13/19 01/28/20 ondansetron 4 mg PO Q8H PRN #30 tab 12/13/19 01/28/20 Bio-K plus 1 cap PO DAILY #30 cap 12/19/19 01/28/20 amoxicillin-pot clavulanate 1 tab PO BID #10 tab 12/19/19 01/28/20 docusate sodium [Colace] 100 mg PO TID #30 cap 12/19/19 01/28/20 oxycodone 5 mg PO Q6H PRN #20 tab 12/19/19 01/28/20 sennosides [Senokot] 1 tab PO HS #10 tab 12/19/19 01/28/20 Previous Rx's Medication Instructions Recorded ondansetron 4 mg PO Q8H PRN #30 tab 12/13/19 Bio-K plus 1 cap PO DAILY #30 cap 12/19/19 amoxicillin-pot clavulanate 1 tab PO BID #10 tab 12/19/19 docusate sodium [Colace] 100 mg PO TID #30 cap 12/19/19 oxycodone 5 mg PO Q6H PRN #20 tab 12/19/19 sennosides [Senokot] 1 tab PO HS #10 tab 12/19/19 Allergies Allergy/AdvReac Type Severity Reaction Status Date / Time No Known Allergies Allergy Unverified 01/28/20 17:22 General Stated Complaint: Abd Prob CLAUDIA: 3 Review of Systems Constitutional Constitutional: Denies fatigue, Denies fever(s) and Denies headache(s) ENT Ears, Nose, Mouth, and Throat: Denies headache(s) Cardiovascular Cardiovascular: Denies chest pain and Denies dyspnea Respiratory Respiratory: Denies cough and Denies dyspnea Gastrointestinal Gastrointestinal: Reports abdominal pain, Reports nausea and Denies vomiting Genitourinary Genitourinary: Denies difficulty voiding and Denies vaginal discharge Musculoskeletal Musculoskeletal: Reports back pain Integumentary/Breasts Skin/Breast: Denies rash Neurologic Neurologic: Denies headache(s) Endocrine Endocrine: Denies fatigue PFSH Medical History Anxiety about health (Acute) Diverticulum of duodenum (Acute) Diverticulum of duodenum with complication (Acute) Pancreatic divisum (Acute) Pancreatitis (Acute) Family History Mother Pancreatitis Social History Smoking/Tobacco Use Status: Never Alcohol Intake: current Alcohol Intake frequency: a few times a month Drug use: Never Substance use type: does not use Do you feel safe at home: Yes Do you feel safe in your relationship?: Yes Female Reproductive History Menstrual control method: pills History History 0 Para Hx # Term Pregnancies Multiple births Hx # Pregnancies Ectopic pregnancies AB induced Hx Number of Living Children AB spontaneous Exam Const General: cooperative and healthy appearing Orientation: alert and awake HENMT Head: normal to inspection, normocephalic and atraumatic Mouth: moist mucous membranes Eyes Conjunctivae: conjunctivae normal Neck Neck: normal visual inspection, trachea midline and supple Resp Effort & Inspection: normal respiratory effort and able to speak in complete sentences Auscultation: clear to auscultation bilaterally Cardio Rate: regular rate Rhythm: regular rhythm GI Inspection: normal to inspection Palpation: soft, not firm, no guarding, not rigid and tender (Epigastric and left upper quadrant) with no rebound tenderness Auscultation: normal bowel sounds Back/Spine/Pelvis Back: no CVA tenderness and back tenderness (Mild upper left lumbar region, diffuse) Skin General skin exam: no rashes or lesions noted Neuro General: patient alert, patient awake, moves all extremities and no focal motor deficits Cognition: normal cognition Motor: muscle tone normal throughout Sensory Exam: no sensory deficits noted Extrem General: normal to inspection, full ROM and capillary refill normal Psych Appearance: grossly normal Mental Status: mental status grossly normal Course Vital Signs Vital signs: Vital Signs Temperature 37.1 C 01/28/20 17:20 Pulse 117 H 01/28/20 17:20 Respiratory Rate 20 01/28/20 17:20 Blood Pressure 120/68 01/28/20 17:20 Pulse Oximetry 97 01/28/20 17:20 Temperature 37.1 C 01/28/20 17:20 Temperature Source Temporal Artery Scan 01/28/20 17:20 Pulse 117 H 01/28/20 17:20 Respiratory Rate 20 01/28/20 17:20 Respiratory Effort Non-Labored 01/28/20 18:53 Blood Pressure 120/68 01/28/20 17:20 Pulse Oximetry 97 01/28/20 17:20 Oxygen Delivery Method Room Air 01/28/20 17:20 Oxygen Flow Rate 0 01/28/20 17:20 Pain Level 6 01/28/20 19:40 Lab/Test Results Lab/Test Results: Laboratory Tests Range/Units 01/28/20 01/28/20 01/28/20 17:37 18:25 18:25 WBC (4.4-10.8) k/cumm 9.79 RBC (4.00-5.20) m/cumm 4.30 Hgb (12.0-15.5) g/dL 12.4 Hct (36.0-46.0) % 39.6 MCV (80-95) fL 92.1 MCH (27.0-33.0) pg 28.8 MCHC (32.0-36.0) g/dL 31.3 L RDW (11.7-14.6) % 14.6 Plt Count (130-400) x1000/uL 369 MPV (8.0-11.0) fL 10.5 Immature Gran % % 0.2 Neutrophils % 59.9 Lymphocytes % 23.0 Monocytes % 14.4 Eosinophils % 2.2 Basophils % 0.3 Absolute Neutrophils (1.2-6.7) k/cumm 5.86 Absolute Lymphocytes (1.2-3.4) k/cumm 2.25 Absolute Monocytes (0.11-0.7) k/cumm 1.41 H Absolute Eosinophils (0.0-0.7) k/cumm 0.22 Absolute Basophils (0.0-0.2) k/cumm 0.03 Sodium (136-145) mmol/L 139 Potassium (3.5-5.1) mmol/L 3.8 Chloride (98-107) mmol/L 105 Carbon Dioxide (21.0-32.0) mmol/L 25.4 Anion Gap (3-11) mmol/L 8.6 BUN (7-18) mg/dL 7 Creatinine (0.55-1.02) mg/dL 0.62 Estimated GFR/1.73 m2 (mL/min/1.73m2) >= 60.00 Glucose (74-106) mg/dL 90 Calcium (8.5-10.1) mg/dL 8.4 L Total Bilirubin (0.2-1.0) mg/dL 0.4 AST (15-37) U/L 12 L ALT (14-59) U/L 14 Alkaline Phosphatase (46-116) U/L 61 Total Protein (6.4-8.2) g/dL 7.2 Albumin (3.4-5.0) g/dL 3.4 Lipase (73-393) U/L 4765 H Urine Color (Yellow) Yellow Urine Clarity (Clear) Clear Urine pH (5-8) 7.0 Ur Specific [place] (1.005-1.025) 1.020 Urine Protein (Negative) mg/dL Negative Urine Ketones (Negative) mg/dL Negative Urine Blood (Negative) Negative Urine Nitrite (Negative) Negative Urine Bilirubin (Negative) Negative Urine Urobilinogen (Up TO 0.2) EU/dL 0.2 Ur Leukocyte Esterase (Negative) Negative Urine Glucose (Negative) mg/dL Negative POC- Test(urine) Negative
[2020-01-28 20:44] VITALS: BP 116/63; PULSE 100; RESP 16; O2SAT 100
== END 2020-01-28 20:46 | disposition home or self-care (01) ==
PROVIDERS: Emergency Provider Physician Assistant; PCP Nurse Practitioner Family
DX: K85.90 Acute pancreatitis without necrosis or infection, unspecified (principal); R11.0 Nausea; Z53.29 Procedure and treatment not carried out because of patient's decision for other reasons
CPT/HCPCS: 36415; 80053; 81025; 83690; 96361; 96374; 96376; 99284; 81003; 85025

== ENCOUNTER 2020-04-27 15:16 | Emergency (ER) | payer OTHER, SELFPAY ==
[2020-04-27 15:27] VITALS: BP 120/73; PULSE 98; RESP 17; TEMP 36.1; O2SAT 97
--- NOTE | 2020-04-27 15:50 | ED.GENADUL_ITS ---
Discharge Plan Disposition Patient Disposition: HOME Condition: Fair Discharge Details Chief Complaint: Abd Prob Clinical Impression: Pancreatitis Primary Care Provider: Joyce Wright ED Provider: Hope Gorman Home Meds and New Rx's Prescriptions: New ondansetron 4 mg tablet,disintegrating 4 mg PO Q6H PRN (Reason: nausea and vomiting) Qty: 10 RF: 0 oxycodone 5 mg tablet 5 mg PO Q4H PRN (Reason: pain) Qty: 7 RF: 0 Continued Control Pill 1 tab PO DAILY RF: 0 ondansetron 4 mg tablet,disintegrating 4 mg PO Q8H PRN (Reason: nausea and vomiting) Qty: 30 RF: 0 Discharge Instructions Instructions: Oxycodone, Rapid Release (By mouth), Ondansetron (By mouth), Pancreatitis (ED) Additional Instructions: Encourage water intake. Please stick with your liquid diet as previously advised. Please advance as you have been told historically. You may use the Zofran as prescribed to help with any recurrence of your nausea or vomiting. Oxycodone as prescribed to help with any discomfort that is now alleviated with your nonnarcotic options. I did contact gastroenterology. They will be reaching out to you to schedule more prompt follow-up and reevaluation. If you develop fever/chills, inability stay hydrated, increased pain or other new/worsening symptom please seek care urgently once again. Stand Alone Forms: Work Release Referrals: Joyce Wright [Primary Care Provider] - Discharge Data Discharge Date/Time-TO BE ENTERED AT DEPARTURE: 04/27/20 18:50 Medical Decision Making Patient is a pleasant 24-year-old female with past medical history significant for diverticulum of the duodenum, chronic pancreatitis. She is presenting today with chief complaint of right upper quadrant pain after removal of common bile duct stent 2 days ago. She reports the pain started on her way home from the hospital is progressively increased. She reports 2 episodes of emesis today. She states that this does feel similar to her pancreatitis historically but is more on the right than typical. States the pain does radiate into the back which is normal when she has her pancreatitis flares. She denies any fevers or chills. No change in bowel or bladder habits. Has not had any hematemesis. No blood in stool or urine. On exam, patient appears uncomfortable. She is noted to be slight cardiac with a pulse of 98. She has normal cardiac and respiratory exam. She has discomfort in the right upper quadrant with palpation. She does have guarding and rebound tenderness with palpation of the right quadrant. Plan to give her Zofran, morphine, hydrate her. I am primarily concerned for an operative complication and feel that CT imaging is appropriate at this point. Will immediately have imaging pushed down to [facility] and consult with her surgeon once imaging has been completed. Patient did have UPT performed 2 days ago which is negative. Will obtain labs and CT imaging. CT reviewed by radiologist COMPARISON: CT ABDOMEN PELVIS W 12/13/2019 1:00 AM FINDINGS: Liver: Normal. No mass. Gallbladder and bile ducts: Normal. No calcified stones. No ductal dilation. Pancreas: Peripancreatic fat stranding. Spleen: Normal. No splenomegaly. Adrenals: Normal. No mass. Kidneys and ureters: Normal. No hydronephrosis. Stomach and bowel: Unremarkable. No obstruction. No mucosal thickening. Appendix: A normal appendix is identified. Intraperitoneal space: Small amount of free pelvic fluid. Vasculature: Unremarkable. No abdominal aortic aneurysm. Lymph nodes: Unremarkable. No enlarged lymph nodes. Bladder: Unremarkable as visualized. Reproductive: Unremarkable as visualized. Bones/joints: Unremarkable. No acute fracture. Soft tissues: Unremarkable. IMPRESSION: Peripancreatic fat stranding most likely representing acute pancreatitis. Labs reviewed. Leukocytosis with WBC 11.76. No electrolyte abnormalities. No significant abnormalities of her liver enzymes. Her lipase is elevated at 789. Sexually fairly normal for the patient. She has been elevated as high as 7000 historically. Last time being elevated like this was in January. I discussed this findings with the patient. She advised that she has a very strict regimen when she has episode of pancreatitis. She reports she is been dealing with this since she was a child. Feels that she is able to be discharged home and would prefer to do so. She reports knowing pancreatitis diet quite well. She reports placing herself on clear liquids for 2 to 3 days typically resolves her symptoms. She is aware of complications that can arise with pancreatitis and when she should seek care urgently once again. Patient is agreeable to receiving 2 L hydration. She has required multiple doses of Dilaudid to help with her discomfort. She does report the oxycodone typically works well for her as an outpatient. I will contact her surgeon to touch base on postoperative pancreatitis. Consulted with GI with [facility], spoke with Dr. Coello. She agrees with plan,is aware of labs, imaging. She will pass along information to Dr. Hayes to arrange for f/u. Patient being discharged home in the setting of an acute flare of chronic pancreatitis. She was given strict return precautions. I have asked that she follow-up with gastroenterology as soon as possible particularly she is in the postoperative setting. She is well aware of the pancreatitis diet and was able to verbally discussed this with me at length. She reports was worked well for her. She will place herself on a clear liquid diet. She is tolerating p.o. intake here in small amounts of water. Work note will be given. Plan to prescribe refill of her ondansetron as well as short course of oxycodone to help with discomfort. We did discuss the risks associated with these medications. She will not drive will take this medication. All of her questions and concerns were addressed and she is in agreement with this plan. She will return with any new or worsening symptoms. HPI General Mode of arrival: ambulatory . Date/Time Provider Initiated Documentation: 04/27/20 15:50 . Limitations to Documentation: no limitations . Information obtained by: patient and RN notes reviewed . HPI Narrative: Patient is a pleasant 24-year-old female presenting today with chief complaint of right upper quadrant pain that radiates to her back. Patient reports that she has chronic pancreatitis as well as a large duodenal diverticula. She states that 2 days ago she had a stent that had been holding up in her common bile duct removed. She reports that secondary to COVID, this had to remain in longer than expected. States that the procedure was uncomplicated. However, on her way home she began developing much more severe abdominal pain that has persistently increased. She reports that yesterday and today she had nausea and vomiting. She has been alternating Tylenol and ibuprofen to help with discomfort. Reports 2 episodes of emesis which are primarily bile today. No change in bowel or dayan dder habits. Denies any chest pain or shortness of breath. No cough. Patient does report that this feels similar to her chronic pancreatitis flares however the pain is much more in the right side than the left which is atypical for her Related Data Home Medications Medication Instructions Recorded Confirmed Control Pill 1 tab PO DAILY 09/29/19 04/27/20 ondansetron 4 mg PO Q8H PRN #30 tab 12/13/19 04/27/20 ondansetron 4 mg PO Q6H PRN #10 tab 04/27/20 oxycodone 5 mg PO Q4H PRN #7 tab 04/27/20 Previous Rx's Medication Instructions Recorded ondansetron 4 mg PO Q8H PRN #30 tab 12/13/19 ondansetron 4 mg PO Q6H PRN #10 tab 04/27/20 oxycodone 5 mg PO Q4H PRN #7 tab 04/27/20 Allergies Allergy/AdvReac Type Severity Reaction Status Date / Time No Known Allergies Allergy Unverified 01/28/20 17:22 General Stated Complaint: Abd Prob CLAUDIA: 3 Review of Systems Constitutional Constitutional: Reports as per HPI, Denies chills, Denies fatigue, Denies fever(s) and Denies headache(s) ENT Ears, Nose, Mouth, and Throat: Denies headache(s) Cardiovascular Cardiovascular: Reports as per HPI, Denies chest pain and Denies dyspnea Respiratory Respiratory: Reports as per HPI, Denies cough and Denies dyspnea Gastrointestinal Gastrointestinal: Reports as per HPI Musculoskeletal Musculoskeletal: Reports as per HPI and Denies back pain Integumentary/Breasts Skin/Breast: Reports as per HPI and Denies rash Neurologic Neurologic: Reports as per HPI and Denies headache(s) Endocrine Endocrine: Denies fatigue PFSH Medical History Anxiety about health (Acute) Diverticulum of duodenum (Acute) Diverticulum of duodenum with complication (Acute) Pancreatic divisum (Acute) Pancreatitis (Acute) Social History Smoking/Tobacco Use Status: Never Alcohol Intake: current Alcohol Intake frequency: a few times a month Drug use: Never Substance use type: does not use Do you feel safe at home: Yes Do you feel safe in your relationship?: Yes Female Reproductive History Menstrual control method: pills History History 0 Para Hx # Term Pregnancies Multiple births Hx # Pregnancies Ectopic pregnancies AB induced Hx Number of Living Children AB spontaneous Exam Const General: cooperative, healthy appearing, uncomfortable, no acute distress and well developed Nutritional Appearance: average body habitus and well nourished Orientation: alert and awake [facility] Head: normal to inspection Mouth: moist mucous membranes Resp Effort & Inspection: normal respiratory effort, able to speak in complete sentences and no respiratory distress Auscultation: clear to auscultation bilaterally, no rales, no rhonchi and no wheezes Cardio Rate: regular rate Rhythm: regular rhythm Heart Sounds: S1 normal and S2 normal GI Inspection: normal to inspection, no edema, non-distended, no obesity, no visible herniation and no visible pulsation Palpation: soft, no aortic enlargement, not firm, guarding in the RUQ, hepatomegaly, no masses, no pulsatile masses, not rigid, tender in the RUQ and Castañeda's sign positive and No ascites Percussion: normal to percussion Auscultation: hypoactive bowel sounds Back/Spine/Pelvis Back: no CVA tenderness Skin General skin exam: no rashes or lesions noted Trauma: no lacerations or abrasions Neuro General: patient alert and patient awake Cognition: normal cognition Speech: speech normal Gait: normal gait Psych Appearance: grossly normal and well kempt Mental Status: mental status grossly normal Speech and Movement: speech and movement normal Course Vital Signs Vital signs: Vital Signs Temperature 36.1 C L 04/27/20 15:27 Pulse 98 H 04/27/20 15:27 Respiratory Rate 17 04/27/20 15:27 Blood Pressure 120/73 04/27/20 15:27 Pulse Oximetry 97 04/27/20 15:27 Temperature 36.1 C L 04/27/20 15:27 Temperature Source Temporal Artery Scan 04/27/20 15:27 Pulse 98 H 04/27/20 15:27 Respiratory Rate 17 04/27/20 15:27 Respiratory Effort 04/27/20 15:30 Blood Pressure 120/73 04/27/20 15:27 Blood Pressure Position Sitting 04/27/20 15:27 Pulse Oximetry 97 04/27/20 15:27 Oxygen Delivery Method Room Air 04/27/20 15:27 Oxygen Flow Rate 0 04/27/20 15:27
[2020-04-27] MEDS: MORPHine 10 MG/ML VIAL 2 MG IVP (15:58)
[2020-04-27] MEDS: Lactated Ringers 1,000 ML 1000 ML IV ×2 (15:58→18:20)
[2020-04-27] MEDS: Ondansetron 4 MG/2 ML VIAL IVP (15:59)
[2020-04-27 16:03] LABS: Abs Immature Grans 0.01 k/cumm (0.0-0.09); Absolute Basophil Count 0.04 k/cumm (0.0-0.2); Absolute Eosinophil Count 0.13 k/cumm (0.0-0.7); Absolute Neutrophil Count 8.04 k/cumm (1.2-6.7); Basophils % 0.3; Eosinophils % 1.1; HCT 38.7 % (36.0-46.0); HGB 12.7 g/dL (12.0-15.5); Immature Grans % 0.1 %; Mean Corp. HGB Concentration 32.8 g/dL (32.0-36.0); Mean Corpuscular Volume 91.5 fL (80-95); Mean Platelet Volume 10.4 fL (8.0-11.0); Monocytes % 11.1; Neutrophils % 68.4; Platelet Count 366 x1000/uL (130-400); RBC 4.23 m/cumm (4.00-5.20); RBC Distribution Width 12.9 % (11.7-14.6); White Blood Cell Count 11.76 k/cumm (4.4-10.8)
[2020-04-27 16:04] LABS: Absolute Lymphocyte Count 2.23 k/cumm (1.2-3.4); Absolute Monocyte Count 1.31 k/cumm (0.11-0.7)
[2020-04-27 16:14] LABS: Bilirubin Negative (Negative); Blood Negative (Negative); Clarity Sl Cloudy (Clear); Glucose Negative (Negative); Ketones Negative (Negative); Leukocyte Esterase Negative (Negative); Nitrite Negative (Negative); Specific Gravity 1.025 (1.005-1.025); Urobilinogen 0.2 EU/dL (Up TO 0.2)
[2020-04-27] MEDS: HYDROmorphone 2 MG/ML VIAL 1 MG IVP ×3 (16:23→18:20)
[2020-04-27 16:37] LABS: Lipase 789 U/L (73-393)
[2020-04-27 16:40] LABS: ALT 19 U/L (14-59); AST 11 U/L (15-37); Albumin 3.3 g/dL (3.4-5.0); Alkaline Phosphatase 62 U/L (46-116); Anion Gap 8.9 mmol/L (3-11); BUN 7 mg/dL (7-18); Bilirubin, Total 0.3 mg/dL (0.2-1.0); CO2 25.1 mmol/L (21.0-32.0); CREATININE 0.69 mg/dL (0.55-1.02); Calcium 8.6 mg/dL (8.5-10.1); Chloride 106 mmol/L (98-107); Glucose 101 mg/dL (74-106); Potassium 3.7 mmol/L (3.5-5.1); Sodium 140 mmol/L (136-145); Total Protein 7.3 g/dL (6.4-8.2)
[2020-04-27 16:46] LABS: Bacteria Few HPF (Negative); C & S Indicated? No/Sq. Contamination; Crystals Negative HPF (Negative); Epithelial Cells Many HPF (Negative); Mucus Heavy (Negative); RBC 0-2 HPF (0-2); WBC 0-2 HPF (0-5)
[2020-04-27] MEDS: Normal Saline - Diluent 50 ML VIAL IV (17:01)
[2020-04-27] MEDS: Omnipaque 350 MG/ML 100 ML BTL IJ (17:01)
--- NOTE | 2020-04-27 17:02 | DI.CT_ITS ---
EXAM: CT ABDOMEN PELVIS W CLINICAL HISTORY: severe pain after removal of stent in common bile TECHNIQUE: Imaging Protocol: Axial computed tomography images with coronal and sagittal reformatted images were created and reviewed CONTRAST MATERIAL: Intravenous: Omnipaque 350 Contrast volume:100 mL Oral: No COMPARISON: CT CT ABDOMEN PELVIS W from 12/13/2019 FINDINGS: ABDOMEN: Lung Bases: Dependent atelectasis. Liver: Normal density. No measurable mass. Portal, Superior Mesenteric, and Splenic Veins: Unremarkable. Gallbladder and Biliary Tract: No radiodense calculus or dilation. Pancreas: Normal density, no abnormal calcifications or inflammatory process. The previously noted ai r and fluid filled sac anterior to the pancreas is not visualized on the current examination. There is fluid seen around the pancreas, particularly the head. No focal fluid collection is seen to sugge st an abscess. Findings are suspicious for pancreatitis. Spleen: Normal. Adrenals: No masses seen. Kidneys: Normal size, contour and axis. No radiodense stones or obstructive uropathy. No masses seen. Abdominal Aorta: Abdominal portion non-dilated. Bowel: No obstruction or bowel wall thickening. No evidence of acute appendicitis. Peritoneal Cavity: Small amount of free fluid in the pelvis. Lymph Nodes: Mildly enlarged lymph nodes in the abdomen. Bones: Unremarkable. Soft Tissues: Unremarkable. PELVIS: Bladder: Symmetric distention, no gross wall thickening. Reproductive Organs: Unremarkable as visualized. Lymph Nodes: Within normal limits. Bones: Within normal limits. IMPRESSION: Findings suspicious for acute pancreatitis. RADIATION DOSE DELIVERED: 869.79mGy.cm Total DLP DATA REPOSITORY: All CT scans at this facility are submitted to the National Radiology Data Registry (NRDR) Dose Index Registry (DIR) with the [employer] (A[employer]). RADIATION OPTIMIZATION: All CT scans at this facility use at least one of these dose optimization te chniques: automated exposure control; mA and/or kV adjustment per patient size (includes targeted exa ms where dose is matched to clinical indication); or iterative reconstruction.
--- NOTE | 2020-04-27 17:11 | DI.VRAD_ITS ---
PROCEDURE INFORMATION: Exam: CT Abdomen And Pelvis With Contrast Exam date and time: 04/27/2020 4:54 PM Age: 24 years old Clinical indication: Generalized; Patient HX: Severe abdominal pain on Saturday after endoscopy on Saturday patient sts. Pain radiating to spine. TECHNIQUE: Imaging protocol: Computed tomography of the abdomen and pelvis with intravenous contrast. Radiation optimization: All CT scans at this facility use at least one of these dose optimization techniques: automated exposure control; mA and/or kV adjustment per patient size (includes targeted exams where dose is matched to clinical indication); or iterative reconstruction. Contrast material: OMNIPAQUE 350; Contrast volume: 100 ml; Contrast route: IV; COMPARISON: CT ABDOMEN PELVIS W 12/13/2019 1:00 AM FINDINGS: Liver: Normal. No mass. Gallbladder and bile ducts: Normal. No calcified stones. No ductal dilation. Pancreas: Peripancreatic fat stranding. Spleen: Normal. No splenomegaly. Adrenals: Normal. No mass. Kidneys and ureters: Normal. No hydronephrosis. Stomach and bowel: Unremarkable. No obstruction. No mucosal thickening. Appendix: A normal appendix is identified. Intraperitoneal space: Small amount of free pelvic fluid. Vasculature: Unremarkable. No abdominal aortic aneurysm. Lymph nodes: Unremarkable. No enlarged lymph nodes. Bladder: Unremarkable as visualized. Reproductive: Unremarkable as visualized. Bones/joints: Unremarkable. No acute fracture. Soft tissues: Unremarkable. IMPRESSION: Peripancreatic fat stranding most likely representing acute pancreatitis. Dictated and Authenticated by: Randal Mclain MD. Ordering:BRIGETTE Arnett MD
== END 2020-04-27 18:50 | disposition home or self-care (01) ==
PROVIDERS: Emergency Provider Physician Assistant; PCP Nurse Practitioner Family
DX: K86.1 Other chronic pancreatitis (principal); R11.2 Nausea with vomiting, unspecified; R10.821 Right upper quadrant rebound abdominal tenderness; G89.18 Other acute postprocedural pain; Y84.8 Other medical procedures as the cause of abnormal reaction of the patient, or of later complication, without mention of misadventure at the time of the procedure
CPT/HCPCS: 36415; 80053; 81025; 83690; 96361; 96374; 96375; 96376; 99285; 74177; 81003; 81015; 85025; 99284; J2270; J2405; J3490

== ENCOUNTER 2024-04-25 16:32 | Outpatient (REF) | payer OTHER, SELFPAY | END 2024-04-25 16:33 | disposition home or self-care (01) | LOC: LBN 16:32 | PROVIDERS: PCP Nurse Practitioner Family; Visit Provider Nurse Practitioner Family | DX: N76.0 Acute vaginitis (principal) | CPT/HCPCS: 87480; 87510; 87660 ==

== ENCOUNTER 2024-05-12 14:55 | Outpatient (REF) | payer OTHER, SELFPAY ==
[2024-05-13 11:54] LABS: Chlamydia Result Negative (Negative); GC Result Negative (Negative)
== END 2024-05-12 14:56 | disposition home or self-care (01) ==
LOC: NCHCN 14:55
PROVIDERS: PCP Nurse Practitioner Family; Visit Provider Nurse Practitioner Family
DX: N89.8 Other specified noninflammatory disorders of vagina (principal)
CPT/HCPCS: 87491; 87591; 87480; 87510; 87660

== ENCOUNTER → 2024-07-03 04:50 | Emergency (ER) | payer OTHER, SELFPAY ==
[2024-07-03 04:59] VITALS: BP 122/79; PULSE 82; TEMP 36.7; O2SAT 99
--- NOTE | 2024-07-03 05:01 | W.ED.GENAD ---
Discharge Plan Disposition Patient Disposition: Home Condition: Good Discharge Details Clinical Impression: Strep sore throat Primary Care Provider: Joyce Wright ED Provider: Chip Yoder Home Meds and New Rx's Prescriptions: No Action No Known Home Meds Discharge Instructions Instructions: Sore Throat, Adult ED Additional Instructions: At this time you have evidence of strep throat. Please take 800 mg of ibuprofen every 6 hours and 1000 mg of Tylenol every 6 hours as needed for pain. These are the maximum doses. The antibiotic you were given will help alleviate the infection. Some literature may suggest that rest, gentle doting by your significant other, shoulder massage and foot massages may help enhance lymphatic flow and expedite resolution of your symptoms. Please stay well-hydrated and get plenty of rest. If you notice any worsening of your symptoms, or any new symptoms such as vomiting, diarrhea, fever, chills, shortness of breath, chest pain, numbness, weakness, or fainting , please return immediately to the emergency department for reevaluation. Please follow up with your primary care provider as soon as possible for reassessment and reevaluation. As always, it was a pleasure participating in your medical care today. Referrals: Joyce Wright [Primary Care Provider] - [facility] General Date/Time Provider Initiated Documentation: 07/03/24 04:54. HPI Narrative: 29-year-old female with past medical history of diverticulitis, currently on control, presents today for evaluation of sore throat. Symptoms have been present for the last 48+ hours. Redness was noted. She denies fever, she did take some NSAID therapy last night. No other complaints at this time. No severe fatigue. Related Data Home Medications ?Medication ?Instructions ?Recorded ?Confirmed Unknown [No Known Home Meds] 07/03/24 07/03/24 Allergies Allergy/AdvReac Type Severity Reaction Status Date / Time No Known Allergies Allergy Unverified 07/03/24 05:02 General CLAUDIA: 3 Review of Systems All systems reviewed & are unremarkable except as noted in HPI and below Exam Narrative Exam Narrative: 1.Const: Well-nourished, Well-developed, appearing stated age 2.Eyes: PERRL, no conjunctival injection, and symmetrical lids. 3.ENT: Atraumatic external nose and ears. Moist MM. Neck: Symmetric, trachea midline, No thyromegaly. Notable erythema in the posterior oropharynx, mild tonsillar enlargement on the right, tonsillar exudate was notably present. Tonsils are grade 2. Uvula is midline. No peritonsillar abscess. 4.CVS: +S1/S2, No murmurs or gallops. Peripheral pulses 2+ and equal in all extremities. Brisk capillary refill in all extremities. 5.RESP: Unlabored respiratory effort. Clear to auscultation bilaterally. No wheezes rales or rhonchi 6.GI: Soft, Nontender/Nondistended, No hepatosplenomegaly. No guarding or rebound. 7.MSK: Normocephalic/Atraumatic, Extremities w/o deformity or ttp No cyanosis or clubbing, Normal movement of all extremities 8.Skin: Warm, Dry. No rashes or lesions. 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 Sensation grossly intact, no focal neurologic deficits. 10.Psych: (AAO) x3. Appropriate mood and affect Medical Decision Making 29-year-old female with past medical history of diverticulitis, currently on control, presents today for evaluation of sore throat. Symptoms have been present for the last 48+ hours. Redness was noted. She denies fever, she did take some NSAID therapy last night. No other complaints at this time. No severe fatigue. Physical exam demonstrates erythema mild tonsillar enlargement, grade 2 tonsil, notable tonsillar exudate on the right. Symptoms appear consistent with mild strep pharyngitis/tonsillitis. Strep test positive. Will treat with antibiotic therapy. Will give Decadron for symptom control. Will monitor closely and reassess. 5 AM Strep test positive, patient elected to have IM penicillin. This is being given. She tolerated this well. Patient will be discharged home. Discussed red flags for which to return. I have extensively reviewed the treatment plan and discharge instructions with the patient. I have addressed all patient concerns at this time. The patient was made aware of what symptoms to monitor for that would warrant a return to the emergency department. Discussed the plan with the patient, they demonstrate verbal understanding and agreement with our assessment and plan at this time. The documentation in this chart was dictated using [employer] dictation software. Please excuse any dictation errors. Quality:SDOH Health Related Social Needs: No Data to Display PFSH All Active Problems (Updated 07/03/24 @ 05:04 by Chip Yoder DO) Strep sore throat (Acute) Diverticulum of duodenum with complication (Acute) Diverticulum of duodenum (Acute) Anxiety about health (Acute) Diverticulitis of duodenum (Acute) Pancreatic duct leak (Acute) Pancreatic divisum (Acute) Pancreatitis (Acute) Family History Mother Pancreatitis Social History Smoking/Tobacco Use Status: Never Smoking risk assessment performed?: Yes Alcohol Intake: current Alcohol Intake frequency: a few times a month Drug use: Never Substance use type: does not use Do you feel safe at home: Yes Do you feel safe in your relationship?: Yes Female Reproductive History Menstrual control method: pills History History 0 Para Hx # Term Pregnancies Multiple births Hx # Pregnancies Ectopic pregnancies AB induced Hx Number of Living Children AB spontaneous
[2024-07-03 05:04] VITALS: RESP 14
[2024-07-03] MEDS: Dexamethasone 4 MG TAB 10 MG PO (05:07)
[2024-07-03] MEDS: Ondansetron O.D.T. 4 MG TABEF PO (05:07)
[2024-07-03] MEDS: Ketorolac 30 MG/ML VIAL IM (05:19)
== END | disposition home or self-care (01) ==
LOC: ER 05:04 → RED 05:21
PROVIDERS: Emergency Provider Student in an Organized Health Care Education/Training Program; PCP Nurse Practitioner Family
DX: J02.0 Streptococcal pharyngitis (principal)
CPT/HCPCS: 87880; 96372; 99284; 99283; J0561; J1885; J8540